=== PATIENT | male | born 1935 | race Caucasian/White ===

== ENCOUNTER → 2016-06-15 | Outpatient (CLI) | payer OTHER ==
[~2016-06-15] MED LIST: DOXY100C76 PO; OXYC-57 PO; SIMV10TA2 PO
[2016-06-15 11:28] LABS: ALT/SGPT 24 U/L (12-78); AST/SGOT 23 U/L (15-37); BLOOD UREA NITROGEN 14 mg/dl (7-18); BUN/CREATININE RATIO 13.8 (10-20); CARBON DIOXIDE 30 mmol/L (21-32); CHLORIDE 104 mmol/L (98-107); CHOLESTEROL 173 mg/dl (0-200); GLUCOSE 93 mg/dl (70-99); POTASSIUM 4.1 mmol/L (3.5-5.1); SODIUM 142 mmol/L (136-145); TRIGLYCERIDES 82 mg/dl (0-150); VERY LOW DENSITY LIPOPROT CALC 16 mg/dl
[2016-06-15 11:32] LABS: CHOLESTEROL/HDL RATIO 3.8; HDL CHOLESTEROL 46 mg/dl; LDL CHOLESTEROL CALCULATED 111 mg/dl
== END | disposition home or self-care (01) ==
LOC: C.LAB1850 10:00
PROVIDERS: ATTEND Internal Medicine
DX: E78.5 Hyperlipidemia, unspecified (principal)

== ENCOUNTER → 2016-12-17 | Outpatient (CLI) | payer OTHER ==
[~2016-12-17] MED LIST changes: -OXYC-57 PO
[2016-12-17 10:27] LABS: ALT/SGPT 22 U/L (12-78); AST/SGOT 18 U/L (15-37); BLOOD UREA NITROGEN 19 mg/dl (7-18); BUN/CREATININE RATIO 20.4 (10-20); CALCIUM 8.7 mg/dl (8.5-10.1); CARBON DIOXIDE 30 mmol/L (21-32); CHLORIDE 106 mmol/L (98-107); CREATININE 0.91 mg/dl (0.60-1.40); GLUCOSE 85 mg/dl (70-99); SODIUM 141 mmol/L (136-145)
[2016-12-17 10:30] LABS: CHOLESTEROL 191 mg/dl (0-200); CHOLESTEROL/HDL RATIO 4.7; HDL CHOLESTEROL 41 mg/dl; LDL CHOLESTEROL CALCULATED 130 mg/dl; TRIGLYCERIDES 100 mg/dl (0-150); VERY LOW DENSITY LIPOPROT CALC 20 mg/dl
== END | disposition home or self-care (01) ==
LOC: C.LAB1850 08:59
PROVIDERS: ATTEND Internal Medicine
DX: E78.5 Hyperlipidemia, unspecified (principal); M85.80 Other specified disorders of bone density and structure, unspecified site

== ENCOUNTER → 2016-12-29 | Outpatient (CLI) | payer OTHER ==
--- NOTE | 2016-12-29 14:24 | MAMMOGRAPHY REPORT ---
MALE BILATERAL DIGITAL DIAGNOSTIC MAMMOGRAM TOMOSYNTHESIS WITH CAD AND TARGETED BILATERAL ULTRASOUND: 12/29/2016 CLINICAL HISTORY: 81-year-old male presents with left breast lump and tenderness. TECHNIQUE: Bilateral breast tomosynthesis in addition to standard 2D mammography was performed. Curre nt study was also evaluated with a Computer Aided Detection (CAD) system. COMPARISON: No prior exams were available for comparison. BREAST COMPOSITION: The breast parenchyma is nearly entirely fat. FINDINGS: A triangle palpable marker was placed on the skin of the 12:00 periareolar left breast, de noting the painful lump pointed out by the patient. There is evidence of glandular tissue in the sub areolar aspect of each breast, compatible with gynecomastia. No evidence of a suspicious mass, focal area of distortion or suspicious macrocalcification. Targeted ultrasound was performed in the retroareolar and periareolar aspect of each breast. There i s a hypoechoic amount of breast tissue development in the retroareolar and periareolar left breast, t o a lesser degree in the right breast. No evidence of a suspicious solid or cystic mass. IMPRESSION: ACR BI-RADS CATEGORY 2: BENIGN, TARGETED ULTRASOUND ACR BI-RADS CATEGORY 2: BENIGN The palpable painful lump in the retroareolar left breast is compatible with gynecomastia. There is gynecomastia to a lesser degree in the right breast. Clinical follow-up is recommended as to possibl e underlying cause. These results and recommendations were discussed with the patient at the time of the exam. Approximately 10% of breast cancers are not detected with mammography. A negative mammographic report should not delay biopsy if a clinically suggestive mass is present. Emelia Anaya M.D. ay/:12/29/2016 12:14:37 Referral And Information Aide: Carolyn Brink, [facility] letter sent: Normal 1/2 BI-RADS Code: ACR BI-RADS Category 2: Benign Ultrasound BI-RADS: ACR BI-RADS Category 2: Benign
== END | disposition home or self-care (01) ==
LOC: C.MAMM 10:07
PROVIDERS: ATTEND Internal Medicine
DX: Q83.9 Congenital malformation of breast, unspecified (principal); N63.20 Unspecified lump in the left breast, unspecified quadrant

== ENCOUNTER → 2017-06-11 | Outpatient (CLI) | payer OTHER ==
[2017-06-11 11:08] LABS: ALT/SGPT 23 U/L (12-78); AST/SGOT 16 U/L (15-37); BLOOD UREA NITROGEN 20 mg/dl (7-18); CALCIUM 9.2 mg/dl (8.5-10.1); CARBON DIOXIDE 29 mmol/L (21-32); CREATININE 0.96 mg/dl (0.60-1.40); GLUCOSE 82 mg/dl (70-99); SODIUM 139 mmol/L (136-145)
[2017-06-11 11:11] LABS: CHOLESTEROL 189 mg/dl (0-200); LDL CHOLESTEROL CALCULATED 127 mg/dl
== END | disposition home or self-care (01) ==
LOC: C.LAB1850 08:55
PROVIDERS: ATTEND Internal Medicine
DX: E78.5 Hyperlipidemia, unspecified (principal); I65.29 Occlusion and stenosis of unspecified carotid artery

== ENCOUNTER 2023-01-27 10:39 | Observation (INO) ==
[~2023-01-27 10:39] MED LIST changes: +CEFAZOLIN 2,000 MG/15 ML SYR IV SCH; -DOXY100C76 PO; -SIMV10TA2 PO; +SODIUM CHLORIDE 0.9% 1,000 ML IV SCH; +[UNRECOGNIZED DRUG - REMARK] SCH
--- NOTE | 2023-01-27 11:07 | History & Physical Report ---
Date of Service January 27, 2023 History of Present Illness Primary Care Provider: Akil Ordoñez MD Chief Complaint rm#5 here for f/u from [facility], admitted for leg paralysis, incidental finding of popliteal aneurysm Reason for Consultation Popliteal artery aneurysm History of Present Illness This is an 87-year-old gentleman who is being worked up for weakness in his legs. 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 He denies any claudication. He has no complaints of cerebrovascular insufficiency. He denies any ulcerations of the lower extremities or color changes. He does not smoke. He does have a history of psoriasis. Review of Systems Review of systems performed and 10 systems. Positive findings are occasional shortness of breath constipation. Rest of the findings that are positive as per the [facility] Physical Exam Vitals & Measurements HR: 111 (Monitored) BP: 134/60 SpO2: 92% WT: 61.100 kg (Dosing) WT: 61.1 kg Input and Output - Last 24 hours (Last 8 hours) No I/O Data Found: On exam he is awake alert oriented x3. He is in no apparent distress. His blood pressure is 126/56 on the left and 134/60 on the right. His radials and carotids are +2 bilaterally. I cannot appreciate carotid bruits. Lungs are clear heart irregular rate and rhythm abdominal exam is benign I cannot appreciate a pulsatile mass. Femorals are +2 bilaterally. Pedal's are +1 belinda aterally. I cannot appreciate a widened pulse on the right however the left popliteal did feel to be widened. No ulcerations are noted in either lower extremity. Assessment/Plan Popliteal artery aneurysm At this point we will obtain a CT angio of the lower extremities to better evaluate the popliteal artery. The MRI showed a to be present but the films start just at the distal end of the aneurysm. We need better evaluation of the distal runoff before the type of repair could be determined. We will see him again after his CT angio is completed. Thank you very much for letting us participate in the care of this patient. 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 Dysplastic nevus H/O Malignant melanoma History of basal cell carcinoma of skin Hyperlipidemia Melanocytic nevus Melanoma Multiple nevi Neck stiffness Popliteal artery aneurysm Senile hyperkeratosis Verruca vulgaris Procedure/Surgical History Excision (03/04/2022) Shave biopsy (01/21/2022) Punch biopsy (01/03/2019) Shave biopsy and cauterisation of skin (12/07/2018) Shave biopsy and cauterization of skin (10/13/2018) Shave biopsy and cauterization of skin (01/10/2014) Shave biopsy (07/17/2013) excision (06/29/2012) Shave biopsy of skin (06/06/2012) Cataract Medications Home albuterol(Albuterol (Eqv-ProAir HFA) 90 mcg/inh inhalation aerosol) doxycycline(doxycycline hyclate 100 mg oral capsule), 100 mg= 1 cap, PO, ONCE, 1 refills dutasteride(dutasteride 0.5 mg oral capsule) pravastatin(pravastatin 10 mg oral tablet) predniSONE(predniSONE 20 mg oral tablet) tamSULOsin(tamsulosin 0.4 mg oral capsule) Allergies Pollen watery eyes Social History Smoking Status Never smoked cigarettes Signature Line Electronic Signature on File Romeo Marte MD Author Signature Dt/Tm: 12/30/2022 09:19 AM Card Room Manager Hilario Gupta [facility] [address], [address] [place], [place] [address] Result Type: .Outpt Ltr Date of Service: December 30, 2022 09:15 EDT Authorization Status: Final Subject: Consult Note Author or Import Date: MD Marte Eugene J on December 30, 2022 09:19 EDT Verified By: MD Marte Eugene J on December 30, 2022 09:19 EDT Encounter info: [id number], [place] [id number], Clinic, 12/30/2022 - 12/30/2022 Allergies Allergy/AdvReac Type Severity Reaction Status Date / Time pollen extracts Allergy Mild Congestion Verified 12/30/22 14:36 No Known Drug Allergies Allergy . Verified 12/30/22 14:36 Home Medications Medication Instructions Recorded Confirmed Type acetaminophen 325 mg capsule 650 mg PO Q4H PRN 12/17/22 12/30/22 History albuterol sulfate 90 mcg/actuation 2 inh inhalation Q6H PRN 12/17/22 12/30/22 History breath activated powder inhaler docusate sodium 100 mg capsule 100 mg PO DAILY PRN 12/17/22 12/30/22 History (Colace) doxycycline hyclate 100 mg capsule 100 mg PO DAILY 12/17/22 12/30/22 History multivitamin 1 tab PO DAILY 12/17/22 12/30/22 History polyethylene glycol 3350 17 17 g PO DAILY 12/17/22 12/30/22 History gram/dose oral powder (Miralax) tuberculin PPD 5 tub. 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 Rosacea Osteopenia Hyperlipidemia Carotid artery plaque Venous insufficiency (chronic) (peripheral) Nipple anomaly Memory changes Malignant melanoma of skin Left inguinal hernia Impacted cerumen Encounter for screening for malignant neoplasm of prostate Bilateral inguinal hernia Bilateral impacted cerumen Carotid artery plaque Sensorineural hearing loss (SNHL) of both ears Melanoma Hx of melanoma of skin LEG Surgical History (Updated 01/14/23 @ 00:12 by Background Daemon) Hx of biopsy (12/10/22) Left Thigh Muscle Biopsy and Culture(Left) - Young Villalta, DO, FACS History of cataract extraction with lens replacement RIGHT Was given 2mg of versed without apparent complications Hx of hernia repair History of colostomy Family History Mother Colorectal cancer Denies family history of Ovarian cancer Prostate cancer Myocardial infarction Breast cancer Lung cancer Stroke Social History Smoking Status: Former smoker Tobacco Type: Pipe Cigarettes Per Day: HX OF PIPE USE, QUIT IN 2000; Second Hand Exposure: No; Do You Dip or Chew Tobacco: No; Hx Alcohol Use: No Hx Substance Use: No Preferred Language: Cameroonian Communication Ability: Effective Visual Impairment: No Limitations Hearing Ability: Normal Emergency Medicine Required: No Beliefs That Will Affect Care: None marital status: Current Living Situation: Spouse Current Living Situation Comment: lives in split level home with elderly current occupational status: retired Feels Safe at Home: Yes Childhood Exposure to Second-Hand Smoke: No Dental Care, Regularly: Yes Physical Activity Frequency: Does not Exercise Seatbelt Use: always Sunscreen Use: No Assistive Devices: Walker
--- NOTE | 2023-01-27 11:37 | History & Physical Bridge Note ---
Date of Service January 27, 2023 History & Physical Bridge Note I have examined the patient, reviewed the History & Physical and in the interval since the performance of the History & Physical I have noted the following changes of clinical significance: no changes noted
[2023-01-27] MEDS ORDERED: HEPARIN SOD (PORCINE) 1000 UNIT/ML ONE (12:13)
[2023-01-27] MEDS ORDERED: fentaNYL citrate PF 100 MCG/2 ML VIAL ONE (12:13)
[2023-01-27] MEDS ORDERED: MIDAZOLAM HCL 1 MG/ML 2ML VIAL ONE (12:13)
[2023-01-27] MEDS ORDERED: LIDOCAINE 1% LOCAL 20 ML VIAL ONE (12:25)
--- NOTE | 2023-01-27 12:29 | Pre Anesthesia Assessment ---
Date of Service January 27, 2023 Pre Sedation Assessment Vital Signs Temp Pulse Resp BP Pulse Ox O2 Del Method 01/27/23 11:11 36.5 C 101 H 20 137/85 95 Room Air Cardiovascular RRR, no murmur, no edema Respiratory normal respiratory effort, lungs clear to auscultation Pre-Sedation Airway Assessment Smoking Status: Former smoker Hx Sleep Apnea: No Short, Thick Neck: No Thyromental Distance: > or= 3.5 Finger Breadths Oral Cavity: + WNL Mallampati Class: III ASA: ASA3 NPO Status Date of Last Intake of Fluids: 01/26/23 Time of Last Intake of Fluids: 22:00 Date of Last Intake of Solid Food: 01/26/23 Time of Last Intake of Solid Foods: 18:00 Procedure Planning Contraindications for Sedation: none Current Medications Reviewed: Yes Notes The planned sedation has been discussed with the patient. Informed Consent was obtained. I have identified the patient, determined the appropriateness of sedation and have assessed the patient immediately prior to the procedure. All medicine(s) and interventions are by my order.
[2023-01-27] MEDS ORDERED: oxyCODONE/ACETAMINOPHEN 5mg/325mg TAB PO PRN (13:03)
[2023-01-27] MEDS ORDERED: DOCUSATE SODIUM 100 MG CAP PO PRN (13:06)
--- NOTE | 2023-01-27 13:14 | Procedure Note ---
Angiogram Post Procedure Fluoroscopy Time (minutes): 2.4 Conscious Sedation Time (minutes): 35 Radiation (mGy): 11 Contrast: 25 Post Operative Report Pre & Post Diagnosis Operation Date: 01/27/23 12:15 Pre-Op Diagnosis: Right Popliteal Artery Aneurysm Post-Op Diagnosis: Right Popliteal Artery Aneurysm I identified the patient and participated in the time-out.: Yes Procedure Operation Date: 01/27/23 12:15 Actual Procedures p Endovascular Repair of Right Popliteal Artery Aneurysm, Ultrasound Loclalization of Left Femoral Artery, Moderate Sedation [id number](Right) - Romeo Marte MD Surgeon Romeo Marte MD Delivery Director none Estimated Blood Loss 5 Findings Consistent with Post-Op Diagnosis Specimens none Anesthesia Type RN Sedation Complications none Disposition Accompanied Patient To Recovery: No Disposition: Recovery Room Indications This patient is an 87-year-old male who was found to have a large right popliteal artery aneurysm. He is a good candidate for an endovascular repair. Endovascular pair is recommended. I have discussed the risks options and benefits of the procedure with the patient. The patient understands the risks options and benefits and agrees to the procedure. Description of Procedure The patient was taken the operating placed supine position. Both groins were prepped and draped in a sterile manner. Patient was identified and a timeout was performed. Using ultrasound the left common femoral artery was identified. It was a good caliber and was patent with minimal plaque. Using ultrasound guidance the left common femoral artery was punctured. A 5 Frisian sheath was inserted over the wire. Using a an 035 Glidewire and a rim catheter the right iliac was cannulated from the left side. The wire was passed down through the popliteal aneurysm down into the tibial vessels. The rim cath was advanced down to the distal superficial femoral artery. The wire was removed and arteriography was performed. The aneurysm was identified. The caliber of the artery above and below approximately 9 to 10 mm. A stiff and Glidewire was then inserted through the rim catheter advanced again down through the popliteal. The rim catheter was removed. The 5 Frisian sheath was exchanged for an 8 Frisian destination. We then used the 10 x 15 Viabahn stent to cover the popliteal artery aneurysm. This was then postdilated with a 10 x 6 balloon. Completion angio showed the stent to be widely patent. There is no evidence of endoleak's into the sac. Good outflow was noted in all 3 vessels. At that point the sheath was removed and the puncture was closed using a Star closure device. Adequate hemostasis was noted. Sterile dressings were applied to the puncture site.The patient left the operation room in satisfactory condition and tolerated the procedure well. All needle and sponge counts were correct at the end of the procedure. I attest to the content of the Intraoperative Record and any orders documented therein. Any exceptions are noted below.
[2023-01-27] MEDS ORDERED: SODIUM CHLORIDE 0.9% 1,000 ML IV SCH (13:15)
--- NOTE | 2023-01-27 13:15 | Post Anesthesia Assessment ---
Date of Service January 27, 2023 Post Sedation Assessment Vital Signs Temp Pulse Pulse Resp BP Pulse Ox O2 Del Method 01/27/23 13:13 80 18 125/65 96 Room Air 01/27/23 13:08 80 18 124/68 98 Oxymask 01/27/23 13:05 80 18 129/62 98 Oxymask 01/27/23 13:00 80 18 115/67 98 Oxymask 01/27/23 12:55 80 18 114/58 L 98 Oxymask 01/27/23 12:50 80 18 118/52 L 98 Oxymask 01/27/23 12:45 78 18 120/61 98 Oxymask 01/27/23 12:40 78 18 137/65 98 Oxymask 01/27/23 12:35 76 18 138/68 98 Oxymask 01/27/23 12:30 78 18 140/69 98 Oxymask 01/27/23 12:25 78 18 139/69 98 Oxymask 01/27/23 11:11 36.5 C 101 H 20 137/85 95 Room Air O2 Flow Rate 01/27/23 13:13 4 01/27/23 13:08 4 01/27/23 13:05 4 01/27/23 13:00 4 01/27/23 12:55 4 01/27/23 12:50 4 01/27/23 12:45 4 01/27/23 12:40 4 01/27/23 12:35 4 01/27/23 12:30 4 01/27/23 12:25 4 01/27/23 11:11 Recovery Score Activity: Moves 4 extremities Respiration: Deep Breath/Cough Circulation: +/-20% PreAnes Value Consciousness: Arouseable (by name) Oxygen Saturation: > 92% On Room Air Post Anesthesia Score: 9 Discharge Sedation Level of Care: Fast Track Phase II Post Sedation Plan On clinical assessment, the patient appears to have tolerated the sedation without complications. Patient is recovering as anticipated. Patient will continue to be monitored by nursing and may be discharged when sedation discharge criteria are met per below protocol. Upon Completions of procedure up to 15 minutes continue every 5 minute vital signs and the P.A.R. score; then discharge to a Phase I or Fast Track to Phase II per the following guidelines: * Discharge Patient to appropriate Phase II area if PAR is 8 or greater or return to pre- procedure baseline. The post - procedure orders will be as directed. * If PAR score is less than 8 or not return to pre-procedure baseline then patient will follow Phase I monitoring till PAR is reached for Phase II. The Phase I may be done in procedure room or may call to secure a Phase I area. * If naloxone or flumazenil are used for reversal, hold in Phase I for con tinued monitoring from when last reversal dose was given for a minimum of 60 minutes or longer pending the nurse and/or physician discretion of patient condition before discharge to Phase II. Please call the Sedation Physician to re-evaluate and complete post-note for discharge to Phase II area. Do NOT discharge from procedure sedation or Phase 1 until post- sedation evaluation note is complete by procedure /sedation MD Sedation Discharge Instructions to be given to the patient at discharge to home.
[2023-01-27] MEDS ORDERED: CLOPIDOGREL BISULFATE 300 MG TAB PO STA (13:28)
[2023-01-27] MEDS ORDERED: ALBUTEROL HFA 8 GM INHALER INH PRN (14:14)
[2023-01-27] MEDS ORDERED: ACETAMINOPHEN 325 MG TAB PO PRN (14:16)
[2023-01-28] MEDS ORDERED: predniSONE 5 MG TAB PO SCH (09:00)
[2023-01-28] MEDS ORDERED: POLYETHYLENE (MIRALAX) 17 GM PACK PO SCH (09:00)
[2023-01-28] MEDS ORDERED: MULTIVITAMIN TAB PO SCH (09:00)
[2023-01-28] MEDS ORDERED: DOXYCYCLINE HYCLATE 100 MG CAP PO SCH (09:00)
[2023-01-28] MEDS ORDERED: FINASTERIDE 5 MG TAB PO SCH (09:00)
[2023-01-28] MEDS ORDERED: TAMSULOSIN HCL 0.4 MG CAP PO SCH (09:00)
[2023-01-28] MEDS ORDERED: CLOPIDOGREL BISULFATE 75 MG TAB PO SCH (09:00)
--- NOTE | 2023-01-28 15:00 | Surgery Progress Note ---
Date of Service January 28, 2023 Assessment & Plan (1) Popliteal artery aneurysm: Plan: Patient underwent the percutaneous endovascular repair of his right popliteal artery aneurysm. This is postoperative day #1.He is doing extremely well. He has no complications from the procedure. He will be discharged home today. Admission and Anticipated Discharge Date Admission Date: January 27, 2023 Subjective Plan patient with no complaints.He denies any foot pain leg pain or groin pain Physical Exam Constitutional: WD/WN, vitals as above Cardiovascular: Rate/Rhythm: regular rate and regular rhythm Vessels: posterior tibial pulses present and dorsalis pedis pulses present Extremities: normal capillary refill Skin: + incision (Puncture site is dry and kenji an without any hematoma) Neurologic: CN's II-XI intact bilaterally and moves all extremities Psychiatric: Orientation: alert and oriented x 3 Results & Data Vital Signs (Past 12 Hours) Vital Signs Temp Pulse Resp BP Pulse Ox O2 Del Method 01/28/23 08:00 36.2 C L 78 16 133/68 94 Room Air 01/28/23 04:49 36.5 C 79 18 128/69 95 Room Air
--- NOTE | 2023-01-29 08:26 | Discharge Summary ---
Date of Service January 29, 2023 Admission HPI Per Admitting Provider Chief Complaint rm#5 here for f/u from [facility], admitted for leg paralysis, incidental finding of popliteal aneurysm Reason for Consultation Popliteal artery aneurysm History of Present Illness This is an 87-year-old gentleman who is being worked up for weakness in his legs. 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 He denies any claudication. He has no complaints of cerebrovascular insufficiency. He denies any ulcerations of the lower extremities or color changes. He does not smoke. He does have a history of psoriasis. Review of Systems Review of systems performed and 10 systems. Positive findings are occasional shortness of breath constipation. Rest of the findings that are positive as per the HPI Physical Exam Vitals & Measurements HR: 111 (Monitored) BP: 134/60 SpO2: 92% WT: 61.100 kg (Dosing) WT: 61.1 kg Input and Output - Last 24 hours (Last 8 hours) No I/O Data Found: On exam he is awake alert oriented x3. He is in no apparent distress. His blood pressure is 126/56 on the left and 134/60 on the right. His radials and carotids are +2 bilaterally. I cannot appreciate carotid bruits. Lungs are clear heart irregular rate and rhythm abdominal exam is benign I cannot appreciate a pulsatile mass. Femorals are +2 bilaterally. Pedal's are +1 bilaterally. I cannot appreciate a widened pulse on the right however the left popliteal did feel to be widened. No ulcerations are noted in either lower extremity. Assessment/Plan Popliteal artery aneurysm At this point we will obtain a CT angio of the lower extremities to better evaluate the popliteal artery. The MRI showed a to be present but the films start just at the distal end of the aneurysm. We need better evaluation of the distal runoff before the type of repair could be determined. We will see him again after his CT angio is completed. Thank you very much for letting us participate in the care of this patient. 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 Dysplastic nevus H/O Malignant melanoma History of basal cell carcinoma of skin Hyperlipidemia Melanocytic nevus Melanoma Multiple nevi Neck stiffness Popliteal artery aneurysm Senile hyperkeratosis Verruca vulgaris Procedure/Surgical History Excision (03/04/2022) Shave biopsy (01/21/2022) Punch biopsy (01/03/2019) Shave biopsy and cauterisation of skin (12/07/2018) Shave biopsy and cauterization of skin (10/13/2018) Shave biopsy and cauterization of skin (01/10/2014) Shave biopsy (07/17/2013) excision (06/29/2012) Shave biopsy of skin (06/06/2012) Cataract Medications Home albuterol(Albuterol (Eqv-ProAir HFA) 90 mcg/inh inhalation aerosol) doxycycline(doxycycline hyclate 100 mg oral capsule), 100 mg= 1 cap, PO, ONCE, 1 refills dutasteride(dutasteride 0.5 mg oral capsule) pravastatin(pravastatin 10 mg oral tablet) predniSONE(predniSONE 20 mg oral tablet) tamSULOsin(tamsulosin 0.4 mg oral capsule) Allergies Pollen watery eyes Social History Smoking Status Never smoked cigarettes Signature Line Electronic Signature on File Romeo Marte MD Author Signature Dt/Tm: 12/30/2022 09:19 AM Gravity Prospector Hilario Gupta [facility] [place], [address] [place], [place] [address] Result Type: .Outpt Ltr Date of Service: December 30, 2022 09:15 EDT Authorization Status: Final Subject: Consult Note Author or Import Date: MD Marte Eugene J on December 30, 2022 09:19 EDT Verified By: MD Marte Eugene J on December 30, 2022 09:19 EDT Encounter info: [id number], [place] [id number], Clinic, 12/30/2022 - 12/30/2022 Admission Exam Per Admitting Provider On exam he is awake alert oriented x3. He is in no apparent distress. His blood pressure is 126/56 on the left and 134/60 on the right. His radials and carotids are +2 bilaterally. I cannot appreciate carotid bruits. Lungs are clear heart irregular rate and rhythm abdominal exam is benign I cannot appreciate a pulsatile mass. Femorals are +2 bilaterally. Pedal's are +1 bilaterally. I cannot appreciate a widened pulse on the right however the left popliteal did feel to be widened. No ulcerations are noted in either lower extremity. Principal Diagnosis 1. s/p endovascular repair of R popliteal artery aneurysm 2. R popliteal artery aneurysm Discharge Exam Constitutional WD/WN, vitals as above Respiratory normal respiratory effort, lungs clear to auscultation Cardiovascular RRR, no murmur, no edema Rate/Rhythm: regular rate and regular rhythm Vessels: posterior tibial pulses present and dorsalis pedis pulses present Extremities: normal capillary refill Skin + incision (Puncture site is dry and clean without any hematoma) Neurologic CN's II-XI intact bilaterally and moves all extremities Psychiatric Orientation: alert and oriented x 3 Discharge Data Allergies Allergy/AdvReac Type Severity Reaction Status Date / Time pollen extracts Allergy Mild Congestion Verified 01/27/23 11:20 No Known Drug Allergies Allergy . Verified 01/27/23 11:20 Procedures Performed Operation Date: 01/27/23 12:15 Actual Procedures p Endovascular Repair of Right Popliteal Artery Aneurysm, Ultrasound Loclalization of Left Femoral Artery, Mechanical Closure of Left Femoral Artery, Moderate Sedation [id number](Right) - Romeo Marte MD Ordered Studies 01/27/23 12:09 EV angio LE RT Routine US EV guide vascular access Routine Hospital Course (1) Popliteal artery aneurysm: Patient underwent the percutaneous endovascular repair of his right popliteal artery aneurysm. This is postoperative day #1.He is doing extremely well. He has no complications from the procedure. He will be discharged home today. Total Time Total Time Spent Total Time Spent (In Minutes): 0 Discharge Plan Discharge Items Patient Disposition: Home - Self-Care Reason For Visit: RIGHT POPLITEAL ARTERY ANEURYSM Discharge Diagnosis: Right popliteal artery aneurysm Activity: Per Instructions section Non-emergency contact: Surgeon Call non-emergency contact if: your temperature is above 101.5, your wound has increased redness, your wound has increased drainage and your wound pain has increased Follow-up/Referrals: Pro,Akil Tim MD [Primary Care Provider] - Diet: Heart Healthy Addtl Attending Provider Instructions: SPECIAL CARE INSTRUCTIONS: Medications: * Continue to take your medications as directed. If you have been given a prescription for Plavix, please fill it immediately and take as directed. Incision Care: * Your puncture site may have some bruising and minor swelling for about one week. * You will have a small dressing covering your puncture site. You may remove the dressing after 24 hours and shower. You may let the warm soapy water run over it, but be sure to dry the puncture site well and keep it dry. * DO NOT IMMERSE THE INCISION IN A TUB/POOL/etc. UNTIL HEALED. * Puncture sites should be kept covered with a band-aid until it begins to heal. Restrictions: * Depending on whether you leg or arm was punctured to access the arteries, you will be required to lay flat, hold your arm still, or both, for about 4 hours after the procedure to prevent bleeding. * Limit your activity for the first 48 hours. You may walk and go up and down steps. Avoid excessive bending or movement at the puncture site. Possible Complications: * Excessive Swelling - after blood flow is improved you may notice increased swelling in the lower legs. This is a normal response. This usually depends on the amount of blockages in the leg, how long they have been there prior to your procedure and how much blood flow was restored. Elevating your legs will help to improve this. Please notify our office ([phone]) if the swelling does not go away after lying in bed overnight. * Infection/Drainage/Bleeding - Drainage or bleeding from the puncture site should be minimal. If you have excessive bleeding or drainage, call our office ([phone]) right away. * Pain - You may experience some mild pain or soreness at your puncture site. If your pain does not improve, please contact our office ([phone]). Call your doctor and seek emergent treatment if you develop: * Temperature above 101 degrees * Any fever or chills * Any redness or purulent drainage from the puncture site * Any new dusky/blue colored toes or feet with coolness or sharp or aching pain. SKIN IRRITATION: * You may experience some redness and/or swelling in the area where radiation was administered. If any skin irritation occurs, please contact your family physician. FOLLOW UP VISIT: Keep any scheduled doctor appointments. Call [phone] to schedule a follow up appointment if one not already scheduled. Pending Studies at Discharge: No Stand-Alone Forms: My [employer], Smoking Cessation Medications and DC Order Prescriptions: New clopidogrel [Plavix] 75 mg tablet 75 mg PO DAILY Qty: 30 11RF Continued prednisone 5 mg tablet 5 mg PO .COMPLEX Qty: 60 0RF Rx Instructions: 3 tablets p.o. daily as directed dutasteride [Avodart] 0.5 mg capsule 0.5 mg PO DAILY Qty: 60 2RF tamsulosin [Flomax] 0.4 mg capsule 0.4 mg PO DAILY Qty: 60 2RF acetaminophen 325 mg capsule 650 mg PO Q4H PRN (Reason: Breakthrough Pain) albuterol sulfate 90 mcg/actuation aerosol powdr breath activated 2 inh inhalation Q6H PRN (Reason: sob) docusate sodium [Colace] 100 mg capsule 100 mg PO DAILY PRN (Reason: constipation) doxycycline hyclate 100 mg capsule 100 mg PO DAILY Rx Instructions: Daviers Disease polyethylene glycol 3350 [Miralax] 17 gram/dose powder 17 g PO DAILY Rx Instructions: give by mouth every 24hrs as needed for constipation give in 8oz f water/juice on 3rd day no BM multivitamin Tablet 1 tab PO DAILY Tubersol 5 tub. unit /0.1 mL solution intradermal Discharge Orders: Discharge Order (Routine); Ordered 01/28/23 Ordered By: Romeo Marte Admission Data Admit Date/Time: 01/27/23 13:04 Attending Provider: Romeo Marte Admit Provider: Romeo Marte Primary Care Provider: Akil Ordoñez Other Interventions: Discharge Summary Assessment (RN) Last Done: 01/28/23 14:58
--- OUTSIDE RECORDS SUMMARY | 2023-01-31 15:44 | External Medical Summary | Continuity of Care Document ---
Author Name Unknown Organization [facility] [address] Address [address] [place], [place] [id number] Care Team Providers Care [employer] Name Role Phone Akil Ordoñez Primary Care Physician [phone] [facility]counter [id number] Date(s): 01/19/23 - 01/19/23 [facility] [address], [address] [place] [address] [phone] Encounter Diagnosis Popliteal artery aneurysm(Discharge Diagnosis) - 01/19/23 Discharge Disposition: Home or Self Care Attending Physician: MD Estuardo, Romeo Melgoza Referring Physician: MD Ordoñez Jeffrey W Allergies, Adverse Reactions, Alerts Substance Reaction Severity Status Pollen watery eyes Active Medications Albuterol (Eqv-ProAir HFA) 90 mcg/inh inhalation aerosol INHALE 2 PUFFS BY MOUTH EVERY 6 HOURS NEEDED FOR SHORTNESS OF BREATH OR WHEEZING Start Date: 12/30/22 Status: Ordered doxycycline hyclate 100 mg oral capsule Start: 09/04/21 10:19:00 EDT, 1 cap, PO, ONCE, Disp# 30 cap, Refills: 1, M-W-F, Pharmacy: [facility] Start Date: 09/04/21 Status: Ordered dutasteride 0.5 mg oral capsule TAKE 1 CAPSULE BY MOUTH IN THE MORNING Start Date: 12/30/22 Status: Ordered pravastatin 10 mg oral tablet TAKE 1 TABLET BY MOUTH ONCE DAILY Start Date: 03/04/22 Status: Ordered predniSONE 5 mg oral tablet Start: 01/19/23 13:12:00 EDT, 3 tab, PO, Daily Start Date: 01/19/23 Status: Ordered tamsulosin 0.4 mg oral capsule TAKE 1 CAPSULE BY MOUTH AT BEDTIME Start Date: 12/30/22 Status: Ordered Mental Status 01/19/23 Barriers to Learning one year None evide nt Mandatory Health Literacy Documentation Yes Health Literacy Communication Barriers N ever Primary Language Welsh Problem List Condition Confirmation Course Effective Dates Status H ealth Status Informant Popliteal artery aneurysm Confirmed Active Multiple nevi Confirmed Active Changing skin lesion Confirmed Active Darier's disease Confirmed Active Dysplastic nevus Confirmed Active 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 H/O Malignant melanoma Confirmed Active Angioma Confirmed Active History of basal cell carcinoma of skin Confirmed Active Hyperlipidemia Confirmed Active Melanocytic nevus Confirmed Active Melanoma Confirmed Active Neck stiffness Confirmed Active Senile hyperkeratosis Confirmed Active Verruca vulgaris Confirmed Active Diagnosis Diagnosis Type Effective Dates Health Status Cl inical Service Informant Popliteal artery aneurysm Discharge Diagnosis 01/19/23 Non-Specified Procedures Procedure Date Related Diagnosis Body Site Status Excision 03/04/22 Completed Shave biopsy 1 01/21/22 Completed Punch biopsy 2 01/03/19 Completed Shave biopsy and cauterisation of skin 12/07/18 Completed Shave biopsy and cauterizati on of skin 3 10/13/18 Completed Shave biopsy and cauterizati on of skin 4 01/10/14 Completed Shave biopsy 07/17/13 Completed excision 06/29/12 Completed Shave biopsy of skin 06/06/12 Comp leted Cataract Completed 1left prox jawline 2left lower leg 3with ED&C 4left achilles Vital Signs Most recent to oldest [Reference Range]: 1 Heart Rate 87 bpm (01/19/23 1:13 PM) Blood Pressure 134/56mmHg (01/19/23 1:13 PM) Social History Social History Type Response Smoking Status Never smoked cigaret minerva Sex Male Patient Care team information Care Team Personnel Name: BRANDI Pa Lynn 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 [address] [facility] [address] [place] [id number] [place] Care Team Related Persons Name: ASHLIE DAVIS Address: home [address] [place], [place] [id number]
== END 2023-01-28 15:31 | disposition home or self-care (01) ==
LOC: 3E 10:39 → ASU 10:39

== ENCOUNTER 2023-04-29 15:24 | Inpatient (IN) ==
--- NOTE | 2023-04-29 15:41 | ED Triage Note ---
Date of Service April 29, 2023 Provider in Triage Author: Arline Fowler History of Present Illness This patient was briefly evaluated while in triage. An abbreviated physical exam was performed. This patient is a 88-year-old Male who presents to the ED for evaluation abdominal and back pain, no bowel movement x several days chronic hematuria, chronic SOB from COPD Physical Exam GENERAL: Elderly male in WC with family. CARDIOVASCULAR: RRR RESPIRATORY: CTA ABDOMEN: BS x 4. Diffusely TTP Initial orders for labs and / or imaging were placed and patient was placed in the waiting area until a bed is available. Please see further documentation for the full ED course.
[2023-04-29 16:30] LABS: Basophils # (auto) 0.01 K/uL (0.00-0.20); Basophils % (auto) 0.1 %; Eosinophils # (auto) 0.01 K/uL (0.00-0.50); Eosinophils % (auto) 0.1 %; Hematocrit (blood only) 37.2 % (42.0-52.0); Hemoglobin 12.5 g/dl (14.0-18.0); Immature Granulocytes # (auto) 0.05 K/uL (0.01-0.20); Immature Granulocytes % (auto) 0.5 %; Lymphocytes # (auto) 0.63 K/uL (1.20-3.40); Lymphocytes % (auto) 5.9 %; Mean Corpuscular Hemoglobin 30.3 pg (25.0-34.0); Mean Corpuscular Hgb Conc 33.6 g/dL (32.0-36.0); Mean Corpuscular Volume 90.3 fL (80.0-100.0); Mean Platelet Volume 9.4 fL (9.4-12.4); Monocytes # (auto) 0.43 K/uL (0.11-0.59); Neutrophils # (auto) 9.53 K/uL (1.40-6.50); Neutrophils % (auto) 89.4 %; Platelet Count 261 K/uL (130-400); RDW Coefficient of Variation 15.2 % (11.5-14.5); RDW Standard Deviation 50.6 fL (36.4-46.3); Red Blood Count 4.12 M/uL (4.70-6.10); White Blood Count 10.66 K/ul (4.8-10.8)
[2023-04-29 16:48] LABS: Alanine Aminotransferase 14 U/L (7-52); Albumin Globulin Ratio 1.4 (0.9-2); Albumin Level 3.6 gm/dl (3.4-5.0); Alkaline Phosphatase 59 U/L (34-104); Anion Gap 10 (3-11); Aspartate Aminotransferase 15 U/L (13-39); BUN Creatinine Ratio 22.5 (10-20); Bilirubin,Total 0.6 mg/dl (0.2-1.0); Blood Urea Nitrogen 63 mg/dl (6-23); Carbon Dioxide 25 mmol/L (21-32); Chloride 106 mmol/L (98-107); Est GFR (African American) 22.5 ml/min; Est GFR (Non-African American) 19.4 ml/min; Globulin 2.6 gm/dl (2.5-4.0); Glucose 131 mg/dl (70-99(Fasting)); Lipase 16 U/L (11-82); Potassium 3.7 mmol/L (3.5-5.1); Sodium 141 mmol/L (136-145); Total Protein 6.2 gm/dl (6.0-8.3)
--- NOTE | 2023-04-29 16:53 | XRay Report ---
PA CHEST RADIOGRAPH AND UPRIGHT AND SUPINE AP RADIOGRAPHS OF THE ABDOMEN CLINICAL HISTORY: abd/back pain, constipation, SOB COMPARISON STUDY: Chest CT December 12, 2022. Chest radiograph March 18, 2023. MRI of the abdome n January 20, 2023. CT of the abdomen and pelvis December 07, 2022. FINDINGS: Lungs are clear. No pneumothorax or pleural effusion. Cardiac size is normal. Mediastinal contours are normal. No evidence for pulmonary edema. There is no evidence for free air. Gas througho ut small and large bowel is present. There is no evidence for a bowel obstruction. There is a moderat e to large amount of stool within the colon and rectum. IMPRESSION: 1. No free air or evidence for a bowel obstruction. 2. Moderate to large amount of stool within the colon and rectum. 3. No acute cardiopulmonary findings. ACT 112: Negative or not required by law. Electronically signed by: Tony Bryan M.D. 04/29/2023 4:52 PM
[2023-04-29 16:54] LABS: Troponin I High Sensitivity 13.7 pg/ml (0-20)
[2023-04-29 16:59] LABS: INR 1.1 (0.9-1.1); Prothrombin Time 12.3 Seconds (9.0-12.0)
[2023-04-29 22:58] LABS: Appearance Urine Turbid (Clear); Bilirubin Urine 1+ (Negative); Blood Urine 3+ (Negative); Color Urine Brown; Glucose Urine UA Negative (Negative); Ketones Urine Negative (Negative); Leukocyte Esterase Urine Trace (Negative); Nitrite Urine Positive (Negative); Protein Urine 3+ (Negative); Urobilinogen Urine Negative (Negative); pH Urine 5.5 (4.5-7.5)
[2023-04-29 23:05] LABS: RBC Urine >30 /hpf (0-4)
[2023-04-29 23:06] LABS: Bacteria Urine 3+ (Negative)
[2023-04-29] MEDS: SODIUM CHLORIDE 0.9% 1,000 ML IV SCH (23:30)
[2023-04-29] MEDS: cefTRIAXone SODIUM 2,000 MG/50 ML BAG IV STA (23:30)
[2023-04-29] MEDS: LIDOCAINE 2% JELLY 5 ML TUBE EXT ONE (23:30)
--- NOTE | 2023-04-30 00:07 | Emergency Department Note ---
History of Present Illness General Chief complaint: Abdominal Pain Stated complaint: ABD PAIN, REF BY DOC Time Seen by Provider: 04/29/23 20:02 Source: family (Family at bedside) History of Present Illness Provider complaint: Abdominal pain hematuria Onset (ago): month(s) 1 Maximum Pain Intensity: 6 88-year-old male with history of dementia presents emergency department with his family for abdominal pain and hematuria. Family reports that the patient was complain complain about abdominal pain and hematuria for the last month. They state they called her doctor today who told him to come to the emergency department. Home Medications Medication Instructions Recorded Confirmed Type acetaminophen 325 mg capsule 650 mg PO Q4H PRN Breakthrough Pain 12/17/22 04/29/23 History albuterol sulfate 90 mcg/actuation 2 inh inhalation Q6H PRN sob 12/17/22 04/29/23 History breath activated powder inhaler docusate sodium 100 mg capsule 100 mg PO DAILY PRN constipation 12/17/22 04/29/23 History (Colace) doxycycline hyclate 100 mg capsule 100 mg PO BID 12/17/22 04/29/23 History multivitamin 1 tab PO DAILY 12/17/22 04/29/23 History polyethylene glycol 3350 17 17 g PO DAILY 12/17/22 04/29/23 History gram/dose oral powder (Miralax) dutasteride 0.5 mg capsule 0.5 mg PO DAILY #60 caps 01/14/23 04/29/23 Rx (Avodart) tamsulosin 0.4 mg capsule (Flomax) 0.4 mg PO DAILY #60 caps 01/14/23 04/29/23 Rx clopidogrel 75 mg tablet (Plavix) 75 mg PO DAILY #30 tabs 01/28/23 04/29/23 Rx prednisone 20 mg tablet 10 mg PO DAILY 04/29/23 04/29/23 History prednisone 5 mg tablet 5 mg PO DAILY 04/29/23 04/29/23 History Allergies Allergy/AdvReac Type Severity Reaction Status Date / Time pollen extracts Allergy Mild Congestion Verified 04/29/23 20:00 Past Med/Surg History Medical History Renal lesion BPH (benign prostatic hyperplasia) 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 Rosacea Osteopenia Hyperlipidemia Carotid artery plaque Venous insufficiency (chronic) (peripheral) Nipple anomaly Memory changes Malignant melanoma of skin Left inguinal hernia Impacted cerumen Encounter for screening for malignant neoplasm of prostate Bilateral inguinal hernia Bilateral impacted cerumen Carotid artery plaque Sensorineural hearing loss (SNHL) of both ears Melanoma Hx of melanoma of skin LEG Surgical History Hx of biopsy (12/10/22) Left Thigh Muscle Biopsy and Culture(Left) - Young Villalta DO, FACS History of cataract extraction with lens replacement RIGHT Was given 2mg of versed without apparent complications Hx of hernia repair History of colostomy Family History Mother Colorectal cancer Denies family history of Ovarian cancer Prostate cancer Myocardial infarction Breast cancer Lung cancer Stroke Social History Smoking Status: Former smoker Tobacco Type: Cigarettes Cigarettes Per Day: HX OF PIPE USE, QUIT IN 2000; Second Hand Exposure: No; Do You Dip or Chew Tobacco: No; Hx Alcohol Use: No Hx Substance Use: No Preferred Language: Serbian Communication Ability: Effective Visual Impairment: No Limitations Hearing Ability: Normal Mentally Retarded Teacher Required: No Beliefs That Will Affect Care: None marital status: Current Living Situation: Spouse Current Living Situation Comment: lives in split level home with elderly current occupational status: retired Feels Safe at Home: Yes Childhood Exposure to Second-Hand Smoke: No Dental Care, Regularly: Yes Physical Activity Frequency: Does not Exercise Seatbelt Use: always Sunscreen Use: No Assistive Devices: None Physical Exam Vital Signs Vital Signs - 24 hr 04/29/23 15:36 04/29/23 19:17 04/29/23 20:29 Temperature 36.6 C Temperature Source Temporal Artery Scan Pulse Rate 111 H 84 Pulse Rate [Finger] 96 H Pulse Rhythm [Finger] Regular Respiratory Rate 18 18 18 Respiratory Effort / Characteristics Non-Labored Spontaneous Non-Labored Respiratory Depth Normal Normal Respiratory Pattern Regular Blood Pressure 126/74 Blood Pressure [Right Arm] 137/83 Blood Pressure Mean 91 Blood Pressure Mean [Right Arm] 101 Blood Pressure Position Sitting Pulse Oximetry 98 97 99 Oxygen Delivery Method Room Air Room Air Room Air Sepsis Recent Fever Within 48 Hours No Sepsis New/Unexplained Change in Mental Status N/A Sepsis Action Taken by Nursing No Action Required 04/29/23 21:00 04/29/23 23:00 04/30/23 01:00 Temperature Temperature Source Pulse Rate Pulse Rate [Finger] 80 87 78 Pulse Rhythm [Finger] Respiratory Rate 16 18 18 Respiratory Effort / Characteristics Respiratory Depth Respiratory Pattern Blood Pressure Blood Pressure [Right Arm] 160/82 H 168/90 H 176/94 H Blood Pressure Mean Blood Pressure Mean [Right Arm] 108 116 121 Blood Pressure Position Pulse Oximetry 98 98 98 Oxygen Delivery Method Room Air Room Air Room Air Sepsis Recent Fever Within 48 Hours Sepsis New/Unexplained Change in Mental Status Sepsis Action Taken by Nursing Physical Exam GENERAL: oriented to person, place, and time. appears well-developed and well- nourished. HENT: Exam performed. - Head: Normocephalic and atraumatic. EYES: Conjunctivae and EOM are normal. Right eye exhibits no discharge. Left eye exhibits no discharge. No scleral icterus. NECK: Normal range of motion. Neck supple. No JVD present. CV: Normal rate, regular rhythm, normal heart sounds and intact distal pulses. There is no peripheral edema. Palpable radial pulses bue. PULM/CHEST: Effort normal and breath sounds normal. No respiratory distress. No stridor. no wheezes. no rales. ABD: The abdomen is soft. There is no tenderness. NEURO: Motor and sensation grossly intact. SKIN: Skin is warm and dry. He is not diaphoretic. PSYCH: normal mood and affect. Behavior is normal. Judgment and thought content normal. Course Course 2001: The patient was evaluated in room C5. A complete history and physical exam was performed Cardiac monitoring: An order was placed for continuous cardiac monitoring. The monitor shows a rate of 90 with sinus rhythm interpreted by me [id number]: Vital signs stable. Labs show white blood cell count 10.66 hemoglobin 12.5. Creatinine is up to 2.8 up from 1.13 2 months ago. López catheter placed. Urinalysis does not appear infected. CT of the abdomen pelvis does show constipation no bowel obstruction. It also shows severe bilateral hydronephrosis and hydroureter more severe on the left than the right. There is significant perinephric and ureteral stranding suggestive of left urinary backflow. It stated it could be a urinary blood clot or neoplasm. Discussed case with RADHA Miller on-call for Dr. Delvalle who states he will evaluate the patient. Patient will be admitted to the [facility] Hospitalist team Dr. Templeton's team has been notified. Administered Medications Sodium Chloride (Nss) 1,000 mls @ 125 mls/hr IV .Q8H BERNADETTE Stop: 05/29/23 22:59 Last Admin: 04/29/23 23:30 Dose: 125 mls/hr Documented By: VI Discontinued Medications Ceftriaxone Sodium (Rocephin) 2,000 mg in 50 mls @ 100 mls/hr IV NOW STA Stop: 04/29/23 23:39 Last Infusion: 04/30/23 00:36 Dose: Infused Documented By: Admin: 04/29/23 23:30 Dose: 100 mls/hr Documented By: VI Lidocaine HCl (Lidocaine 2% Jelly 5 Ml Tube) Confirm Administered Dose 5 ml EXT .STK-MED ONE Stop: 04/29/23 23:18 Last Admin: 04/29/23 23:30 Dose: 5 ml Documented By: VI Tamsulosin HCl (Tamsulosin Hcl 0.4 Mg Cap) 0.4 mg PO NOW STA Stop: 04/30/23 01:08 Last Admin: 04/30/23 01:28 Dose: 0.4 mg Documented By: VI Medical Decision Making Laboratory Data Attestation: I reviewed the patient's lab results. 04/29/23 16:00 04/29/23 16:00 Lab Results 04/29/23 04/29/23 Range/Units 16:00 Unknown WBC 10.66 (4.8-10.8) K/ul RBC 4.12 L (4.70-6.10) M/uL Hgb 12.5 L (14.0-18.0) g/dl Hct 37.2 L (42.0-52.0) % MCV 90.3 (80.0-100.0) fL MCH 30.3 (25.0-34.0) pg MCHC 33.6 (32.0-36.0) g/dL RDW Std Deviation 50.6 H (36.4-46.3) fL RDW Coeff of Marcial 15.2 H (11.5-14.5) % Plt Count 261 (130-400) K/uL MPV 9.4 (9.4-12.4) fL Immature Gran % (Auto) 0.5 % Neut % (Auto) 89.4 % Lymph % (Auto) 5.9 % [place] % (Auto) 4.0 % Eos % (Auto) 0.1 % Baso % (Auto) 0.1 % Neut # (Auto) 9.53 H (1.40-6.50) K/uL Lymph # (Auto) 0.63 L (1.20-3.40) K/uL [place] # (Auto) 0.43 (0.11-0.59) K/uL Eos # (Auto) 0.01 (0.00-0.50) K/uL Baso # (Auto) 0.01 (0.00-0.20) K/uL Immature Gran # (Auto) 0.05 (0.01-0.20) K/uL PT 12.3 H (9.0-12.0) Seconds INR 1.1 (0.9-1.1) Sodium 141 (136-145) mmol/L Potassium 3.7 (3.5-5.1) mmol/L Chloride 106 (98-107) mmol/L Carbon Dioxide 25 (21-32) mmol/L Anion Gap 10 (3-11) BUN 63 H (6-23) mg/dl Creatinine 2.80 H (0.6-1.4) mg/dl Est Cr Clr Drug Dosing Not Reportable Est GFR ( Amer) 22.5 ml/min Est GFR (Non-Af Amer) 19.4 ml/min BUN/Creatinine Ratio 22.5 H (10-20) Glucose 131 H (70-99(Fasting)) mg/dl Calcium 9.0 (8.6-10.3) mg/dl Total Bilirubin 0.6 (0.2-1.0) mg/dl AST 15 (13-39) U/L ALT 14 (7-52) U/L Alkaline Phosphatase 59 (34-104) U/L Troponin I High Sens 13.7 (0-20) pg/ml Total Protein 6.2 (6.0-8.3) gm/dl Albumin 3.6 (3.4-5.0) gm/dl Globulin 2.6 (2.5-4.0) gm/dl Albumin/Globulin Ratio 1.4 (0.9-2) Lipase 16 (11-82) U/L Urine Color Brown Urine Appearance Turbid A (Clear) Urine pH 5.5 (4.5-7.5) Ur Specific [place] 1.020 (1.000-1.030) Urine Protein 3+ H (Negative) Urine Glucose (UA) Negative (Negative) Urine Ketones Negative (Negative) Urine Blood 3+ H (Negative) Urine Nitrite Positive A (Negative) Urine Bilirubin 1+ H (Negative) Urine Urobilinogen Negative (Negative) Ur Leukocyte Esterase Trace H (Negative) Urine RBC >30 H (0-4) /hpf Urine WBC 10-30 H (0-5) /hpf Ur Epithelial Cells 5-10 H (0-5) /lpf Urine Bacteria 3+ H (Negative) Granular Casts 1-5 H (0) /lpf Imaging Data Radiologist's Impression: Chest/Abdomen X-ray 04/29/23 15:42 PA CHEST RADIOGRAPH AND UPRIGHT AND SUPINE AP RADIOGRAPHS OF THE ABDOMEN CLINICAL HISTORY: abd/back pain, constipation, SOB COMPARISON STUDY: Chest CT December 12, 2022. Chest radiograph March 18, 2023. MRI of the abdomen January 20, 2023. CT of the abdomen and pelvis December 07, 2022. FINDINGS: Lungs are clear. No pneumothorax or pleural effusion. Cardiac size is normal. Mediastinal contours are normal. No evidence for pulmonary edema. There is no evidence for free air. Gas throughout small and large bowel is present. There is no evidence for a bowel obstruction. There is a moderate to large amount of stool within the colon and rectum. IMPRESSION: 1. No free air or evidence for a bowel obstruction. 2. Moderate to large amount of stool within the colon and rectum. 3. No acute cardiopulmonary findings. ACT 112: Negative or not required by law. Electronically signed by: Tony Bryan M.D. 04/29/2023 4:52 PM Abdomen/Pelvis CT 04/29/23 18:22 Exam(s): CT ABDOMEN + PELVIS Without Contrast EXAM: CT Abdomen and Pelvis Without Intravenous Contrast CLINICAL HISTORY: Reason for exam: hematuria. TECHNIQUE: Axial computed tomography images of the abdomen and pelvis without intravenous contrast. Automated exposure control was utilized for the study. A dose lowering technique was utilized adhering to the principles of ALARA. COMPARISON: 12/07/2022. FINDINGS: Lung bases: Bilateral lower lobe atelectasis. Pleural space: Mild left-sided pleural effusion. Heart: Unremarkable. No cardiomegaly. No significant pericardial effusion. Normal cardiac size with coronary artery calcifications. ABDOMEN: Liver: Unremarkable. Gallbladder and bile ducts: Unremarkable. No calcified stones. No ductal dilation. Pancreas: Unremarkable. No ductal dilation. Spleen: Unremarkable. No splenomegaly. Adrenals: Unremarkable. No mass. Kidneys and ureters: Severe bilateral hydronephrosis and hydroureter. There is severe left perinephric and ureteral stranding. There is no stone along the trajectory of bilateral ureters. Stomach and bowel: There is increased fecal debris within the colon with areas of mild gaseous distention suggestive of constipation. The stomach is decompressed. Mild scattered diverticulosis with no signs of diverticulitis. PELVIS: Appendix: No findings to suggest acute appendicitis. Bladder: High density along the posterior urinary bladder wall suggestive of blood clots. No stones. Reproductive: There is prostate enlargement with soft tissue density along the posterior lateral urinary bladder wall, cannot exclude prostate versus urinary bladder neoplasm. ABDOMEN and PELVIS: Intraperitoneal space: Unremarkable. No free air. No significant fluid collection. Bones/joints: Degenerative disease of the spine, bilateral SI joints and hips. No acute fracture. No dislocation. Soft tissues: Unremarkable. Vasculature: Calcified atherosclerotic disease throughout the aorta with no aneurysm. Lymph nodes: Unremarkable. No enlarged lymph nodes. IMPRESSION: 1. Severe bilateral hydronephrosis and hydroureter, more severe on the left compared to the right . Significant perinephric and ureteral stranding on the left suggestive of urinary backflow otherwise no stone along the trajectory of the bilateral ureters. In the context of prostate enlargement with thickening of the posterolateral urinary bladder wall, cannot exclude neoplasm. Likely posterior urinary bladder blood clot. Clinical correlation recommended and urological consultation recommended. 2. Constipation. No bowel obstruction. 3. Mild left pleural effusion with bilateral lower lobe atelectasis. Electronically signed by: Sommer Acosta MD 04/30/23 00:10 AM ECG Data Attestation: I personally reviewed and interpreted this ECG as follows: Rate (beats per minute): 105 Rhythm: + sinus tachycardia ECG Intervals/blocks: + Normal QRS, + Normal CO and + Normal QT-c ECG ST segments: + Normal ST segments MDM Narrative 2002: The patient was evaluated in room C5. A complete history and physical exam was performed Cardiac monitoring: An order was placed for continuous cardiac monitoring. The monitor shows a rate of 90 with sinus rhythm interpreted by co [id number]: Vital signs stable. Labs show white blood cell count 10.66 hemoglobin 12.5. Creatinine is up to 2.8 up from 1.13 2 months ago. López catheter placed. Urinalysis does not appear infected. CT of the abdomen pelvis does show constipation no bowel obstruction. It also shows severe bilateral hydronephrosis and hydroureter more severe on the left than the right. There is significant perinephric and ureteral stranding suggestive of left urinary backflow. It stated it could be a urinary blood clot or neoplasm. Discussed case with RADHA Miller on-call for Dr. Delvalle who states he will evaluate the patient. Patient will be admitted to the [facility] hospitalist team Dr. Templeton's team has been notified. Impression & Plan GYPSY (acute kidney injury), Hydronephrosis Discharge Plan Visit Data Chief Complaint: Abdominal Pain Stated Complaint: ABD PAIN, REF BY DOC ED Provider: Scott Govea Discharge Problem: GYPSY (acute kidney injury), Hydronephrosis Patient Disposition: Admitted As Inpatient Discharge Instructions Interventions: ED Discharge Assessment Last Done: 04/30/23 02:09 Forms Stand Alone Forms: My [facility] Prescriptions Prescriptions: No Action dutasteride [Avodart] 0.5 mg capsule 0.5 mg PO DAILY Qty: 60 2RF tamsulosin [Flomax] 0.4 mg capsule 0.4 mg PO DAILY Qty: 60 2RF acetaminophen 325 mg capsule 650 mg PO Q4H PRN (Reason: Breakthrough Pain) albuterol sulfate 90 mcg/actuation aerosol powdr breath activated 2 inh inhalation Q6H PRN (Reason: sob) docusate sodium [Colace] 100 mg capsule 100 mg PO DAILY PRN (Reason: constipation) doxycycline hyclate 100 mg capsule 100 mg PO BID Rx Instructions: Daviers Disease polyethylene glycol 3350 [Miralax] 17 gram/dose powder 17 g PO DAILY multivitamin Tablet 1 tab PO DAILY clopidogrel [Plavix] 75 mg tablet 75 mg PO DAILY Qty: 30 11RF prednisone 5 mg Tablet 5 mg PO DAILY Rx Instructions: TOTAL DOSE 15 MG--TAKES WITH 1/2 OF 20 MG TAB.see taper instructions prednisone 20 mg tablet 10 mg PO DAILY Rx Instructions: TOTAL DOSE 15 MG--TAKES WITH 5 MG TAB. Referrals Referrals: Akil Ordoñez MD [Primary Care Provider] - Discharge Problem: Hydronephrosis Qualifiers: Hydronephrosis type: unspecified Qualified Code(s): N13.30 - Unspecified hydronephrosis
--- NOTE | 2023-04-30 00:11 | CT Scan Report ---
Exam(s): CT ABDOMEN + PELVIS Without Contrast EXAM: CT Abdomen and Pelvis Without Intravenous Contrast CLINICAL HISTORY: Reason for exam: hematuria. TECHNIQUE: Axial computed tomography images of the abdomen and pelvis without intravenous contrast. Automated exposure control was utilized for the study. A dose lowering technique was utilized adhering to the principles of ALARA. COMPARISON: 12/07/2022. FINDINGS: Lung bases: Bilateral lower lobe atelectasis. Pleural space: Mild left-sided pleural effusion. Heart: Unremarkable. No cardiomegaly. No significant pericardial effusion. Normal cardiac size with coronary artery calcifications. ABDOMEN: Liver: Unremarkable. Gallbladder and bile ducts: Unremarkable. No calcified stones. No ductal dilation. Pancreas: Unremarkable. No ductal dilation. Spleen: Unremarkable. No splenomegaly. Adrenals: Unremarkable. No mass. Kidneys and ureters: Severe bilateral hydronephrosis and hydroureter. There is severe left perinephric and ureteral stranding. There is no stone along the trajectory of bilateral ureters. Stomach and bowel: There is increased fecal debris within the colon with areas of mild gaseous distention suggestive of constipation. The stomach is decompressed. Mild scattered diverticulosis with no signs of diverticulitis. PELVIS: Appendix: No findings to suggest acute appendicitis. Bladder: High density along the posterior urinary bladder wall suggestive of blood clots. No stones. Reproductive: There is prostate enlargement with soft tissue density along the posterior lateral urinary bladder wall, cannot exclude prostate versus urinary bladder neoplasm. ABDOMEN and PELVIS: Intraperitoneal space: Unremarkable. No free air. No significant fluid collection. Bones/joints: Degenerative disease of the spine, bilateral SI joints and hips. No acute fracture. No dislocation. Soft tissues: Unremarkable. Vasculature: Calcified atherosclerotic disease throughout the aorta with no aneurysm. Lymph nodes: Unremarkable. No enlarged lymph nodes. IMPRESSION: 1. Severe bilateral hydronephrosis and hydroureter, more severe on the left compared to the right . Significant perinephric and ureteral stranding on the left suggestive of urinary backflow otherwise no stone along the trajectory of the bilateral ureters. In the context of prostate enlargement with thickening of the posterolateral urinary bladder wall, cannot exclude neoplasm. Likely posterior urinary bladder blood clot. Clinical correlation recommended and urological consultation recommended. 2. Constipation. No bowel obstruction. 3. Mild left pleural effusion with bilateral lower lobe atelectasis. Electronically signed by: Sommer Acosta MD 04/30/23 00:10 AM
--- NOTE | 2023-04-30 00:55 | Urology Consultation ---
Date of Consultation April 30, 2023 Assessment & Plan (1) Hematuria: I discussed with treating emergency room physician and the patient is being admitted on the hospital service. From a urologic perspective we recommend the following I suspect the patient's urologic symptoms are secondary to an obstructive process, likely an enlarged prostate, however an underlying neoplasm cannot be excluded at this point The patient has a López catheter in place and this should be maintained for accurate I's and O's as well as bladder decompression. With this modality hopefully his kidney function will improve There is concern that patient has an underlying urinary tract infection. A urine culture has been sent and the results will be followed. In the interim he has been started on antibiotics in form of Rocephin which should continue until culture results are available The patient takes Flomax as well as dutasteride. I discussed with the hospital service and they are planning on making some adjustments to his medications to improve his urinary situation IV fluids for hydration should be provided Nephrotoxins should be avoided Serial labs to be followed Will keep the patient n.p.o. for the present time in case any procedural intervention will be performed tomorrow, although I am not sure this will be necessary at this time and his hematuria workup can potentially be completed as an outpatient Additional recommendations will be based on his clinical course as unfolds (2) Urinary retention: (3) Acute kidney injury: History of Present Illness Reason for Consultation: Hematuria Urinary retention Acute kidney injury History of Present Illness This is an 88-year-old male who presented to the emergency department at the prompting of his primary care team as well as his family. Patient notes that he has had on and off hematuria since 2021. According to the patient and his family he was seen at the [place] [facility] where he was treated for urinary tract infection. They report he is treated with at least 2 courses of antibiotics and notes that his hematuria never fully clears and continues to come and go. Patient finally presented to the emergency department as he has been having some generalized abdominal pain. He notes that he is having issues with constipation and has not had a good bowel movement in approximately 2 weeks. In addition the patient notes that he is again experiencing hematuria. He does note that he can pass an occasional blood clot with his urine. He does report some urinary hesitancy and notes that his urine stream is not quite as strong as what it once was. He does feel that when he urinates he can empty his bladder the hallway. He does report some back pain. He denies any fevers, shakes, or chills. He gutierrez s report an unspecified weight loss. The patient does not take any anticoagulants but he does take Plavix. Patient says that he has seen a urologist in the past and he believes it was [facility] physician [facility]. Review of records show that his most recent visit available for my review was on 04/30/[address] Acevedo of [facility] urology. Patient was seen at that time for microscopic hematuria. Dr. Garland did perform a office cystoscopy were noted to tumors or kidney stones were noted. There is also no CT scan evidence of the cause of his microscopic hematuria noted at that time. Since arrival to the hospital the patient has had labs and imaging which I independent reviewed. CT scan of the abdomen pelvis shows that there is severe bilateral hydronephrosis and hydroureter with some perinephric and ureteral stranding. There is noted prostate enlargement and there is no identified nephrolithiasis. There was some concern the patient may have some blood clot in his bladder but underlying mass could not be excluded. There is no evidence of bowel obstruction and patient was noted to have the significant fecal burden. These findings were consistent was noted on obstruction series that was previously taken as well. Labs include a CBC her white blood cell count platelet count are normal. His hemoglobin and hematocrit are 12.5 and 37.2. Chemistry profile showed sodium and potassium were normal. His BUN and creatinine were 63 and 2.8 (the patient's previous creatinine level was noted to be normal). Coagulation studies are within the normal range. Urinalysis showed turbid urine with 3+ blood and was also positive for nitrites. There is trace leukocyte Estrace and pyuria with 10-13 white blood cells per high-power field as well as 3+ bacteria. Allergies Allergy/AdvReac Type Severity Reaction Status Date / Time pollen extracts Allergy Mild Congestion Verified 04/29/23 20:00 Home Medications Medication Instructions Recorded Confirmed Type acetaminophen 325 mg capsule 650 mg PO Q4H PRN Breakthrough Pain 12/17/22 04/29/23 History albuterol sulfate 90 mcg/actuation 2 inh inhalation Q6H PRN sob 12/17/22 04/29/23 History breath activated powder inhaler docusate sodium 100 mg capsule 100 mg PO DAILY PRN constipation 12/17/22 04/29/23 History (Colace) doxycycline hyclate 100 mg capsule 100 mg PO BID 12/17/22 04/29/23 History multivitamin 1 tab PO DAILY 12/17/22 04/29/23 History polyethylene glycol 3350 17 17 g PO DAILY 12/17/22 04/29/23 History gram/dose oral powder (Miralax) dutasteride 0.5 mg capsule 0.5 mg PO DAILY #60 caps 01/14/23 04/29/23 Rx (Avodart) tamsulosin 0.4 mg capsule (Flomax) 0.4 mg PO DAILY #60 caps 01/14/23 04/29/23 Rx clopidogrel 75 mg tablet (Plavix) 75 mg PO DAILY #30 tabs 01/28/23 04/29/23 Rx prednisone 20 mg tablet 10 mg PO DAILY 04/29/23 04/29/23 History prednisone 5 mg tablet 5 mg PO DAILY 04/29/23 04/29/23 History Patient History Medical History Renal lesion BPH (benign prostatic hyperplasia) 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 Rosacea Osteopenia Hyperlipidemia Carotid artery plaque Venous insufficiency (chronic) (peripheral) Nipple anomaly Memory changes Malignant melanoma of skin Left inguinal hernia Impacted cerumen Encounter for screening for malignant neoplasm of prostate Bilateral inguinal hernia Bilateral impacted cerumen Carotid artery plaque Sensorineural hearing loss (SNHL) of both ears Melanoma Hx of melanoma of skin LEG Surgical History Hx of biopsy (12/10/22) Left Thigh Muscle Biopsy and Culture(Left) - Young Villalta, DO, FACS History of cataract extraction with lens replacement RIGHT Was given 2mg of versed without apparent complications Hx of hernia repair History of colostomy Family History Mother Colorectal cancer Denies family history of Ovarian cancer Prostate cancer Myocardial infarction Breast cancer Lung cancer Stroke Social History Smoking Status: Former smoker Tobacco Type: Cigarettes Cigarettes Per Day: HX OF PIPE USE, QUIT IN 2000; Second Hand Exposure: No; Do You Dip or Chew Tobacco: No; Hx Alcohol Use: No Hx Substance Use: No Preferred Language: [place] Communication Ability: Effective Visual Impairment: No Limitations Hearing Ability: Normal Sharepoint Specialist Required: No Beliefs That Will Affect Care: None marital status: Current Living Situation: Spouse Current Living Situation Comment: lives in split level home with elderly current occupational status: retired Feels Safe at Home: Yes Childhood Exposure to Second-Hand Smoke: No Dental Care, Regularly: Yes Physical Activity Frequency: Does not Exercise Seatbelt Use: always Sunscreen Use: No Assistive Devices: None Review of Systems Constitutional: no fever and no chills Eyes: + corrective lenses Ear, Nose, Mouth, Throat: no ear pain and no hearing loss Respiratory: no cough Cardiovascular: no chest pain Gastrointestinal: as per Subjective / HPI Genitourinary: + as per Subjective / HPI Musculoskeletal: + back pain Integumentary: no rash Neurologic: no localized weakness Physical Exam Constitutional: + thin; no acute distress Eyes: Wears glasses ENMT: Ears: no hearing impairment Mouth: no oropharynx abnormality Neck: trachea midline Respiratory: normal respiratory effort; no respiratory distress and no labored breathing Cardiovascular: Rate/Rhythm: regular rate and regular rhythm Gastrointestinal (Abdomen): Abdomen is soft and nonrigid. Patient did have some generalized tenderness with palpation. There is no rebound tenderness or guarding Musculoskeletal: No calf tenderness Skin: no rashes Neurologic: moves all extremities Psychiatric: A+Ox3, euthymic affect Genitourinary: Slight CVA tenderness to percussion noted bilaterally. The patient did have a López catheter in place that was placed in the emergency departmentin the collection bag there is scotty-colored urine with no visible blood clots. The urine draining in the tubing itself is somewhat clear at the time of my exam Results & Data Vital Signs (Past 12 Hours) Vital Signs Temp Pulse Pulse Resp BP BP Pulse Ox 04/29/23 23:00 87 18 168/90 H 98 04/29/23 21:00 80 16 160/82 H 98 04/29/23 20:29 84 18 99 04/29/23 19:17 96 H 18 137/83 97 04/29/23 15:36 36.6 C 111 H 18 126/74 98 O2 Del Method 04/29/23 23:00 Room Air 02/08/24 21:00 Room Air 04/29/23 20:29 Room Air 04/29/23 19:17 Room Air 04/29/23 15:36 Room Air PG Care Time/CCT Total # of Minutes Spent Total Time Spent with Patient: Total time spent is greater than 50% in coordination of care (as documented) at patient's floor/unit and/or counseling patient: Coding Level of Care Code 50999 INT INP/OBS CARE 3/75MIN Diagnoses Hematuria R31.9 Urinary retention R33.9 Acute kidney injury N17.9
--- NOTE | 2023-04-30 01:14 | History & Physical Report ---
Date of Service April 30, 2023 Assessment & Plan (1) Bilateral hydronephrosis: (2) BPH loc w urin obs/LUTS: (3) GYPSY (acute kidney injury): (4) Hematuria: (5) Myositis of both thighs: Plan Severe bilateral hydronephrosis and hydroureter, left greater than right/BPH with LUTS/ posterior urinary bladder with blood clot- N.p.o. 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 He has noted blood in urine and abdominal pain present for the past month, but 1 spoke with outpatient physician, he was advised to come to the emergency department for assessment Primary Care Provider: Akil Ordoñez MD The patient is a 88-year-old male with a past medical history including bullous pemphigoid, hyperlipidemia, BPH, COPD, thigh myositis, pyelonephritis, and popliteal artery aneurysm. The patient presents to the emergency department after having symptoms of abdominal pain and hematuria for the past month, worsening over the past week, and advised to come to the ED by his outpatient physician. Symptoms also include generalized weakness, fatigue and worsening memory issues Allergies Allergy/AdvReac Type Severity Reaction Status Date / Time pollen extracts Allergy Mild Congestion Verified 04/29/23 20:00 Home Medications Medication Instructions Recorded Confirmed Type acetaminophen 325 mg capsule 650 mg PO Q4H PRN Breakthrough Pain 12/17/22 04/29/23 History albuterol sulfate 90 mcg/actuation 2 inh inhalation Q6H PRN sob 12/17/22 04/29/23 History breath activated powder inhaler docusate sodium 100 mg capsule 100 mg PO DAILY PRN constipation 12/17/22 04/29/23 History (Colace) doxycycline hyclate 100 mg capsule 100 mg PO BID 12/17/22 04/29/23 History multivitamin 1 tab PO DAILY 12/17/22 04/29/23 History polyethylene glycol 3350 17 17 g PO DAILY 12/17/22 04/29/23 History gram/dose oral powder (Miralax) dutasteride 0.5 mg capsule 0.5 mg PO DAILY #60 caps 01/14/23 04/29/23 Rx (Avodart) tamsulosin 0.4 mg capsule (Flomax) 0.4 mg PO DAILY #60 caps 01/14/23 04/29/23 Rx clopidogrel 75 mg tablet (Plavix) 75 mg PO DAILY #30 tabs 01/28/23 04/29/23 Rx prednisone 20 mg tablet 10 mg PO DAILY 04/29/23 04/29/23 History prednisone 5 mg tablet 5 mg PO DAILY 04/29/23 04/29/23 History Past Med/Surg History Medical History Renal lesion BPH (benign prostatic hyperplasia) 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 Rosacea Osteopenia Hyperlipidemia Carotid artery plaque Venous insufficiency (chronic) (peripheral) Nipple anomaly Memory changes Malignant melanoma of skin Left inguinal hernia Impacted cerumen Encounter for screening for malignant neoplasm of prostate Bilateral inguinal hernia Bilateral impacted cerumen Carotid artery plaque Sensorineural hearing loss (SNHL) of both ears Melanoma Hx of melanoma of skin LEG Surgical History Hx of biopsy (12/10/22) Left Thigh Muscle Biopsy and Culture(Left) - Young Villalta DO, FACS History of cataract extraction with lens replacement RIGHT Was given 2mg of versed without apparent complications Hx of hernia repair History of colostomy Family History Mother Colorectal cancer Denies family history of Ovarian cancer Prostate cancer Myocardial infarction Breast cancer Lung cancer Stroke Social History Smoking Status: Never smoker Tobacco Type: Cigarettes Cigarettes Per Day: HX OF PIPE USE, QUIT IN 2000; Second Hand Exposure: No; Do You Dip or Chew Tobacco: No; Hx Alcohol Use: No Hx Substance Use: No Preferred Language: Lao Communication Ability: Effective Visual Impairment: No Limitations Hearing Ability: Normal Trace Evidence Technician Required: No Beliefs That Will Affect Care: None marital status: Current Living Situation: Spouse Current Living Situation Comment: lives in split level home with elderly current occupational status: retired Other Information That Helps Us Care for You: No Feels Safe at Home: Yes Safety Concerns: Feels Safe At This Time Childhood Exposure to Second-Hand Smoke: No Dental Care, Regularly: Yes Physical Activity Frequency: Does not Exercise Seatbelt Use: always Sunscreen Use: No Assistive Devices: None Review of Systems Review of Systems: The patient denies chest pain, palpitations, shortness of breath, dyspnea on exertion, cough, lower extremity swelling, sore throat, fevers, chills, sweats, nausea, vomiting, diarrhea , constipation, blood in stool, lightheadedness, dizziness, headache, loss of consciousness, rash, abnormal bruising or bleeding, focal or generalized weakness, generalized arthralgias or myalgias, back or neck pain, or night sweats. The review of systems is otherwise negative other than for that already noted above, and at least 10 systems have been reviewed. Physical Exam Physical Exam: The patient is awake, alert and oriented 3, well developed and well nourished, normocephalic and atraumatic, lying in bed and in no acute distress. HEENT--PERRL, EOMI, mucous membranes and oropharynx mildly dry. Neck--supple. No JVD. No bruits. Thyroid normal, trachea midline, no adenopathy. Heart--normal S1 and S2. No murmurs, rubs or gallops. Lungs--clear bilaterally, no respiratory distress, no accessory muscle use. Abdomen--normal bowel sounds and soft. Nontender. Nondistended, no hernias or masses, no organomegaly. Extremities--no cyanosis or clubbing. No edema. Dermatologic--normal skin turgor, normal color, no abnormal lymph nodes, no rash. Neurologic--cranial nerves II through XII grossly intact. Rheumatologic--limited exam Psychiatric--normal affect. Results & Data Results & Data Vital Signs (Past 12 Hours) Vital Signs Temp Pulse Pulse Resp BP BP Pulse Ox 04/29/23 23:00 87 18 168/90 H 98 04/29/23 21:00 80 16 160/82 H 98 04/29/23 20:29 84 18 99 04/29/23 19:17 96 H 18 137/83 97 04/29/23 15:36 36.6 C 111 H 18 126/74 98 O2 Del Method 04/29/23 23:00 Room Air 04/29/23 21:00 Room Air 04/29/23 20:29 Room Air 04/29/23 19:17 Room Air 04/29/23 15:36 Room Air Laboratory Results Laboratory Results WBC 10.66 K/ul (4.8-10.8) 04/29/23 16:00 RBC 4.12 M/uL (4.70-6.10) L 04/29/23 16:00 Hgb 12.5 g/dl (14.0-18.0) L 04/29/23 16:00 Hct 37.2 % (42.0-52.0) L 04/29/23 16:00 MCV 90.3 fL (80.0-100.0) 04/29/23 16:00 MCH 30.3 pg (25.0-34.0) 04/29/23 16:00 MCHC 33.6 g/dL (32.0-36.0) 04/29/23 16:00 RDW Std Deviation 50.6 fL (36.4-46.3) H 04/29/23 16:00 RDW Coeff of Marcial 15.2 % (11.5-14.5) H 04/29/23 16:00 Plt Count 261 K/uL (130-400) 04/29/23 16:00 MPV 9.4 fL (9.4-12.4) 04/29/23 16:00 Immature Gran % (Auto) 0.5 % 04/29/23 16:00 Neut % (Auto) 89.4 % 04/29/23 16:00 Lymph % (Auto) 5.9 % 04/29/23 16:00 [place] % (Auto) 4.0 % 04/29/23 16:00 Eos % (Auto) 0.1 % 04/29/23 16:00 Baso % (Auto) 0.1 % 04/29/23 16:00 Neut # (Auto) 9.53 K/uL (1.40-6.50) H 04/29/23 16:00 Lymph # (Auto) 0.63 K/uL (1.20-3.40) L 04/29/23 16:00 [place] # (Auto) 0.43 K/uL (0.11-0.59) 04/29/23 16:00 Eos # (Auto) 0.01 K/uL (0.00-0.50) 04/29/23 16:00 Baso # (Auto) 0.01 K/uL (0.00-0.20) 04/29/23 16:00 Immature Gran # (Auto) 0.05 K/uL (0.01-0.20) 04/29/23 16:00 PT 12.3 Seconds (9.0-12.0) H 04/29/23 16:00 INR 1.1 (0.9-1.1) 04/29/23 16:00 Sodium 141 mmol/L (136-145) 04/29/23 16:00 Potassium 3.7 mmol/L (3.5-5.1) 04/29/23 16:00 Chloride 106 mmol/L (98-107) 04/29/23 16:00 Carbon Dioxide 25 mmol/L (21-32) 04/29/23 16:00 Anion Gap 10 (3-11) 04/29/23 16:00 BUN 63 mg/dl (6-23) H 04/29/23 16:00 Creatinine 2.80 mg/dl (0.6-1.4) H 04/29/23 16:00 Est Cr Clr Drug Dosing Not Reportable 04/29/23 16:00 Est GFR ( Amer) 22.5 ml/min 04/29/23 16:00 Est GFR (Non-Af Amer) 19.4 ml/min 04/29/23 16:00 BUN/Creatinine Ratio 22.5 (10-20) H 04/29/23 16:00 Glucose 131 mg/dl (70-99(Fasting)) H 04/29/23 16:00 Calcium 9.0 mg/dl (8.6-10.3) 04/29/23 16:00 Total Bilirubin 0.6 mg/dl (0.2-1.0) 04/29/23 16:00 AST 15 U/L (13-39) 04/29/23 16:00 ALT 14 U/L (7-52) 04/29/23 16:00 Alkaline Phosphatase 59 U/L (34-104) 04/29/23 16:00 Troponin I High Sens 13.7 pg/ml (0-20) 04/29/23 16:00 Total Protein 6.2 gm/dl (6.0-8.3) 04/29/23 16:00 Albumin 3.6 gm/dl (3.4-5.0) 04/29/23 16:00 Globulin 2.6 gm/dl (2.5-4.0) 04/29/23 16:00 Albumin/Globulin Ratio 1.4 (0.9-2) 04/29/23 16:00 Lipase 16 U/L (11-82) 04/29/23 16:00 Urine Color Brown 04/29/23 Unknown Urine Appearance Turbid (Clear) A 04/29/23 Unknown Urine pH 5.5 (4.5-7.5) 04/29/23 Unknown Ur Specific [place] 1.020 (1.000-1.030) 04/29/23 Unknown Urine Protein 3+ (Negative) H 04/29/23 Unknown Urine Glucose (UA) Negative (Negative) 04/29/23 Unknown Urine Ketones Negative (Negative) 04/29/23 Unknown Urine Blood 3+ (Negative) H 04/29/23 Unknown Urine Nitrite Positive (Negative) A 04/29/23 Unknown Urine Bilirubin 1+ (Negative) H 04/29/23 Unknown Urine Urobilinogen Negative (Negative) 04/29/23 Unknown Ur Leukocyte Esterase Trace (Negative) H 04/29/23 Unknown Urine RBC >30 /hpf (0-4) H 04/29/23 Unknown Urine WBC 10-30 /hpf (0-5) H 04/29/23 Unknown Ur Epithelial Cells 5-10 /lpf (0-5) H 04/29/23 Unknown Urine Bacteria 3+ (Negative) H 04/29/23 Unknown Granular Casts 1-5 /lpf (0) H 04/29/23 Unknown Impressions Chest/Abdomen X-ray 04/29/23 15:42 PA CHEST RADIOGRAPH AND UPRIGHT AND SUPINE AP RADIOGRAPHS OF THE ABDOMEN CLINICAL HISTORY: abd/back pain, constipation, SOB COMPARISON STUDY: Chest CT December 12, 2022. Chest radiograph March 18, 2023. MRI of the abdomen January 20, 2023. CT of the abdomen and pelvis December 07, 2022. FINDINGS: Lungs are clear. No pneumothorax or pleural effusion. Cardiac size is normal. Mediastinal contours are normal. No evidence for pulmonary edema. There is no evidence for free air. Gas throughout small and large bowel is present. There is no evidence for a bowel obstruction. There is a moderate to large amount of stool within the colon and rectum. IMPRESSION: 1. No free air or evidence for a bowel obstruction. 2. Moderate to large amount of stool within the colon and rectum. 3. No acute cardiopulmonary findings. ACT 112: Negative or not required by law. Electronically signed by: Tony Bryan M.D. 04/29/2023 4:52 PM Abdomen/Pelvis CT 04/29/23 18:22 Exam(s): CT ABDOMEN + PELVIS Without Contrast EXAM: CT Abdomen and Pelvis Without Intravenous Contrast CLINICAL HISTORY: Reason for exam: hematuria. TECHNIQUE: Axial computed tomography images of the abdomen and pelvis without intravenous contrast. Automated exposure control was utilized for the study. A dose lowering technique was utilized adhering to the principles of ALARA. COMPARISON: 12/07/2022. FINDINGS: Lung bases: Bilateral lower lobe atelectasis. Pleural space: Mild left-sided pleural effusion. Heart: Unremarkable. No cardiomegaly. No significant pericardial effusion. Normal cardiac size with coronary artery calcifications. ABDOMEN: Liver: Unremarkable. Gallbladder and bile ducts: Unremarkable. No calcified stones. No ductal dilation. Pancreas: Unremarkable. No ductal dilation. Spleen: Unremarkable. No splenomegaly. Adrenals: Unremarkable. No mass. Kidneys and ureters: Severe bilateral hydronephrosis and hydroureter. There is severe left perinephric and ureteral stranding. There is no stone along the trajectory of bilateral ureters. Stomach and bowel: There is increased fecal debris within the colon with areas of mild gaseous distention suggestive of constipation. The stomach is decompressed. Mild scattered diverticulosis with no signs of diverticulitis. PELVIS: Appendix: No findings to suggest acute appendicitis. Bladder: High density along the posterior urinary bladder wall suggestive of blood clots. No stones. Reproductive: There is prostate enlargement with soft tissue density along the posterior lateral urinary bladder wall, cannot exclude prostate versus urinary bladder neoplasm. ABDOMEN and PELVIS: Intraperitoneal space: Unremarkable. No free air. No significant fluid collection. Bones/joints: Degenerative disease of the spine, bilateral SI joints and hips. No acute fracture. No dislocation. Soft tissues: Unremarkable. Vasculature: Calcified atherosclerotic disease throughout the aorta with no aneurysm. Lymph nodes: Unremarkable. No enlarged lymph nodes. IMPRESSION: 1. Severe bilateral hydronephrosis and hydroureter, more severe on the left compared to the right . Significant perinephric and ureteral stranding on the left suggestive of urinary backflow otherwise no stone along the trajectory of the bilateral ureters. In the context of prostate enlargement with thickening of the posterolateral urinary bladder wall, cannot exclude neoplasm. Likely posterior urinary bladder blood clot. Clinical correlation recommended and urological consultation recommended. 2. Constipation. No bowel obstruction. 3. Mild left pleural effusion with bilateral lower lobe atelectasis. Electronically signed by: Sommer Acosta MD 04/30/23 00:10 AM Code Status & VTE Plan Code Status Full code VTE Prophylaxis Plan VTE Prophylaxis will be ordered: Yes PG Care Time/CCT Total # of Minutes Spent Total Time Spent with Patient: Total time spent is greater than 50% in coordination of care (as documented) at patient's floor/unit and/or counseling patient: Coding Level of Care Code 31207 INT INP/OBS CARE 3/75MIN Diagnoses Bilateral hydronephrosis N13.30 BPH loc w urin obs/LUTS N40.1 GYPSY (acute kidney injury) N17.9 Hematuria R31.9 Myositis of both thighs M60.9
[2023-04-30] MEDS: TAMSULOSIN HCL 0.4 MG CAP PO STA (01:28)
[2023-04-30] MEDS ORDERED: ONDANSETRON INJ 2 MG/ML 2 ML VIAL IV PRN (02:51)
[2023-04-30] MEDS: HYDROCORTISONE SOD 50 MG in SYRINGE 0 ML IV SCH (03:13)
--- OUTSIDE RECORDS SUMMARY | 2023-04-30 05:03 | External Medical Summary | Continuity of Care Document ---
Author Name Unknown Organization [facility] [address] [facility] [address] [id number] Care Team Providers Care Forestry Pilot Name Role Phone Akil Ordoñez Primary Care Physician [phone] [id number] Date(s): 04/26/23 - 04/26/23 [facility] [address] [facility] [address] [id number] Encounter Diagnosis Bullous pemphigoid(Discharge Diagnosis) - 04/26/23 Long-term use of high-risk medication(Discharge Diagnosis) - 04/26/23 Discharge Disposition: Home or Self Care Attending Physician: MD Cabrera Sara B Allergies, Adverse Reactions, Alerts No Known Medication Allergies Substance Reaction Severity Status Pollen watery eyes Active Assessment and Plan Extracted from: Title:Office Visit Note Author:MD Rick, Boyd Soliman Date:04/26/23 1.Bullous pemphigoid Chronic, at goal. We discussed we cannot continue on that dose of prednisone. I initially recommended a slower taper at 17.5 15, 12.5 and 10. The patient has some dementia and memory issues his is with him but she did not feel that that taper wasdoable for her. This was even after it was written out. Therefore we elected to go with15 mg daily for 2 weeksthen 10 mg daily for 2 weeks until he comes back. He knows not to stop the prednisone completely. I recommended topical steroid if anything flares up twice a dayand to call me if that is the case. He will also continue on the doxycycline. 2.Long-term use of high-risk medication Risks and benefits of prednisone reviewed. They understand why we are tapering it. Call with any issues. I will see him back in about 4 to 5 weeks. Medications Albuterol (Eqv-ProAir HFA) 90 mcg/inh inhalation aerosol INHALE 2 PUFFS BY MOUTH EVERY 6 HOURS NEEDED FOR SHORTNESS OF BREATH OR WHEEZING Start Date: 12/30/22 Status: Ordered clopidogrel 75 mg oral tablet Start: 04/12/23 13:50:00 EST, 1 tab, PO, Daily Start Date: 04/12/23 Status: Ordered doxycycline hyclate 100 mg oral capsule Start: 03/25/23 10:47:00 EST, 1 cap, PO, bid, Disp# 180 cap, Refills: 1, may take with food to minimize abdominal discomfort, Pharmacy: [id number] Start Date: 03/25/23 Stop Date: 09/21/23 Status: Ordered dutasteride 0.5 mg oral capsule TAKE 1 CAPSULE BY MOUTH IN THE MORNING Start Date: 12/30/22 Status: Ordered pravastatin 10 mg oral tablet TAKE 1 TABLET BY MOUTH ONCE DAILY Start Date: 03/04/22 Status: Ordered predniSONE 5 mg oral tablet Start: 03/25/23 10:51:00 EST, 1 tab, PO, Daily, Disp# 100 tab, take as directed, Pharmacy: [id number] Start Date: 03/25/23 Status: Ordered tamsulosin 0.4 mg oral capsule Start: 03/10/23 11:34:00 EST, 1 cap, PO, Daily Start Date: 03/10/23 Status: Ordered triamcinolone 0.1% topical cream Start: 03/10/23 11:55:00 EST, 1 appl, topical, bid, Disp# 454 g, Refills: 2, To rash BID, Pharmacy:[id number] Start Date: 03/10/23 Status: Ordered Mental Status 04/26/23 Barriers to Learning one year None evide nt Mandatory Health Literacy Documentation Yes Health Literacy Communication Barriers N ever Primary Language Divehi Problem List Condition Confirmation Course Effective Dates Status H ealth Status Informant Popliteal artery aneurysm Confirmed Active Multiple nevi Confirmed Active Bullous pemphigoid Confirmed Active Changing skin lesion Confirmed Active Darier's disease Confirmed Active Dysplastic nevus Confirmed Active 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 H/O Malignant melanoma Confirmed Active Long-term use of high-risk medication Confirmed Active Angioma Confirmed Active History of basal cell carcinoma of skin Confirmed Active Hyperlipidemia Confirmed Active Melanocytic nevus Confirmed Active Melanoma Confirmed Active Neck stiffness Confirmed Active Seborrheic keratoses Confirmed Active Senile hyperkeratosis Confirmed Active Verruca vulgaris Confirmed Active Diagnosis Diagnosis Type Effective Dates Health Status Clinical Service Informant Bullous pemphigoid Discharge Diagnosis 04/26/23 Long-term use of high-risk medication Discharge Diagnosis 04/26/23 Procedures Procedure Date Related Diagnosis Body Site Status Chest X-ray 1 03/18/23 Completed Endovascular repair of aneur ysm with graft of right popliteal artery 01/27/23 Completed Excision 03/04/22 Completed Shave biopsy 2 01/21/22 Completed Punch biopsy 3 01/03/19 Completed Shave biopsy and cauterisation of skin 12/07/18 Completed Shave biopsy and cauterizati on of skin 4 10/13/18 Completed Shave biopsy and cauterizati on of skin 5 01/10/14 Completed Shave biopsy 07/17/13 Completed excision 06/29/12 Completed Shave biopsy of skin 06/06/12 Comp leted Cataract Completed 1Findings Cardiomediastinal and hilar silhouettes are within normal limits. No pneumothorax, pleuraleffusion or airspace consolidation, Hyperinflation with diaphragmatic flattening. The bones of the chest appear grossly intact. Impression: No ACute Process. 2left prox jawline 3left lower leg 4with ED&C 5left achilles Social History Social History Type Response Smoking Status Never smoked cigaret minerva Sex Male Dermatology Outpatient Note * MD Rick, Darby Soliman: PERFORM Event Display: Dermatology Outpt Note Authored Date: Chief Complaint 4 week f/u bullous pemphigoid. Improved. History of Present Illness Patient follows up with bullous pemphigoid. Patient is now taking doxycycline 100 mg twice a day with food and prednisone 20 mg daily with food. He has not used any topicals as his skin has been clear and he has not been itchy. Physical Exam Exam of chest back abdomen upper extremities bilaterally hands as well as lower ankle areas. He has no active bullous pemphigoid today Assessment/Plan 1.Bullous pemphigoid Chronic, at goal. We discussed we cannot continue on that dose of prednisone. I initially recommended a slower taper at 17.5 15, 12.5 and 10. The patient has some dementia and memory issues hiswife is with him but she did not feel that that taper wasdoable for her. This was even after itwas written out. Therefore we elected to go with15 mg daily for 2 weeksthen 10 mg daily for 2weeks until he comes back. He knows not to stop the prednisone completely. I recommended topical steroid if anything flares up twice a dayand to call me if that is the case. He will also continue on the doxycycline. 2.Long-term use of high-risk medication Risks and benefits of prednisone reviewed. They understand why we are tapering it. Call with any issues. I will see him back in about 4 to 5 weeks. Problem List/Past Medical History Ongoing Angioma Atypical nevus Bullous pemphigoid Changing skin lesion Darier's disease Darier-White disease Dysplastic nevus H/O Malignant melanoma History of basal cell carcinoma of skin Hyperlipidemia Long-term use of high-risk medication Melanocytic nevus Melanoma Multiple nevi Neck stiffness Popliteal artery aneurysm Seborrheic keratoses Senile hyperkeratosis Verruca vulgaris Procedure/Surgical History Chest X-ray (03/18/2023)Endovascular repair of aneurysm with graft of right popliteal artery (01/27/2023)Excision (03/04/2022)Shave biopsy (01/21/2022)Punch biopsy (01/03/2019)Shavebiopsy and cauterisation of skin (12/07/2018)Shave biopsy and cauterization of skin (10/13/2018)Shave biopsy and cauterization of skin (01/10/2014)Shave biopsy (07/17/2013)excision (06/29/2012)Shave biopsy of skin (06/06/2012)Cataract Medications albuterol(Albuterol (Eqv-ProAir HFA) 90 mcg/inh inhalation aerosol) clopidogrel(clopidogrel 75 mg oral tablet), 75 mg= 1 tab, PO, Daily doxycycline(doxycycline hyclate 100 mg oral capsule), 100 mg= 1 cap, PO, bid, 1 refills dutasteride(dutasteride 0.5 mg oral capsule) pravastatin(pravastatin 10 mg oral tablet) predniSONE(predniSONE 5 mg oral tablet), 5 mg= 1 tab, PO, Daily tamSULOsin(tamsulosin 0.4 mg oral capsule), 0.4 mg= 1 cap, PO, Daily triamcinolone topical(triamcinolone 0.1% topical cream), 1 appl, topical, bid, 2 refills Allergies No Known Medication Allergies Pollenwatery eyes Social History Smoking Status Never smoked cigarettes Recommendations Health Maintenance Pending(in the next year) OverDue Adult Influenza Vaccine due09/18/22and every 1year Due Adult COVID-19 Vaccination due04/26/23Unknown Frequency Adult Social Determinants of Health Screening due04/26/23Unknown Frequency Adult Tdap/Td Vaccine due04/26/23Unknown Frequency Body Mass Index due04/26/23Unknown Frequency Medicare Annual Wellness Visit due04/26/23and every 1year Pneumococcal Vaccine Older Adults due04/26/23One-time only Shingles Vaccine due04/26/23One-time only Satisfied(in the past 1 year) There are no satisfied recommendations within the defined date range Electronic Signature on File Electronically Reviewed/Signed by: Darby Cabrera MD Author Signature Dt/Tm:04/26/2023 01:24 PM Department of Dermatology [facility] Patient Care team information Care Team Personnel Name: BRANDI Pa Lynn Position: Physician [employer] 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
--- OUTSIDE RECORDS SUMMARY | 2023-04-30 05:03 | External Medical Summary | Continuity of Care Document ---
Author Name Unknown Organization [facility] [address] Address [address] [place], [place] [id number] Care Team Providers Care Protection Officer Name Role Phone Akil Ordoñez Primary Care Physician [phone] Encounter [facility] [id number] Date(s): 04/12/23 - 04/12/23 [facility] [address], [facility] [address] [place] [address] [phone] Encounter Diagnosis Popliteal artery aneurysm(Discharge Diagnosis) - 04/12/23 Discharge Disposition: Home or Self Care Attending Physician: MD Estuardo, Romeo Melgoza Referring Physician: MD Ordoñez Jeffrey W Allergies, Adverse Reactions, Alerts No Known Medication Allergies Substance Reaction Severity Status Pollen watery eyes Active Assessment and Plan Extracted from: Title:Clinical Document Author:BRANDI Pa Lynn Date:04/12/23 [facility] OUTPATIENT NOTE Name: Reginald DAVIS Jr. Patient Number: [id number] : 1935 Date of Service: 04/12/2023 Chief Complaint: _Follow-up for popliteal artery aneurysm HPI: _Mr. Davis is an elderly male presents to Dr. Marte's vascular surgery clinic today for a follow-up visit regarding his right popliteal artery aneurysm endovascular repair which occurred on 01/27/2023. His procedure was essentially uncomplicated and that he has done well postoperatively. Patient has no complaints or concerns relating to his right leg or his left groin puncture site. He is ambulating well without any problems. Specifically he denies claudication, rest pain, nonhealing wounds or ulcerations. Imaging: Patient did undergo a right leg arterial ultrasound to evaluate his popliteal artery covered stent which demonstrates a widely patent endovascular popliteal artery aneurysm repair with a residual aneurysm sac measuring 3.2 cm. Current Home Meds: (Last Updated 04/12 13:52) albuterol (Albuterol (Eqv-ProAir HFA) 90 mcg/inh inhalation aerosol) INHALE 2 PUFFS BY MOUTH EVERY 6 HOURS NEEDED FOR SHORTNESS OF BREATH OR WHEEZING clopidogrel (clopidogrel 75 mg oral tablet) 75 mg PO Daily doxycycline (doxycycline hyclate 100 mg oral capsule) 100 mg PO bid may take with food to minimize abdominal discomfort dutasteride (dutasteride 0.5 mg oral capsule) TAKE 1 CAPSULE BY MOUTH IN THE MORNING pravastatin (pravastatin 10 mg oral tablet) TAKE 1 TABLET BY MOUTH ONCE DAILY predniSONE (predniSONE 20 mg oral tablet) 20 mg PO Daily 2 tabs ( 40 mg) every day with breakfast predniSONE (predniSONE 5 mg oral tablet) 5 mg PO Daily take as directed tamSULOsin (tamsulosin 0.4 mg oral capsule) 0.4 mg PO Daily triamcinolone topical (triamcinolone 0.1% topical cream) 1 appl topical bid To rash BID Allergies and Sensitivities: No Known Medication Allergies Pollen(watery eyes) Past Medical History: Problems: Long-term use of high-risk medication Seborrheic keratoses Bullous pemphigoid Popliteal artery aneurysm Angioma Multiple nevi History of basal cell carcinoma of skin Changing skin lesion Darier-White disease Atypical nevus Hyperlipidemia Melanoma Neck stiffness Dysplastic nevus Senile hyperkeratosis Verruca vulgaris H/O Malignant melanoma Darier's disease Melanocytic nevus OBJECTIVE Vitals: Last Updated 04/12/23 13:49 Date Temp BP Location Pulse RR SpO2 Pain 04/12/23 156/74 85 96 03/25/23 0 03/10/23 0 Vital Signs are the last 3 documented. No Orthostatic Data Available Height and Weight: Last Updated 12/30/22 08:44 Date BMI Wt(kg) Wt(lb) Method Ht(cm) (ft-in) Method 12/30/22 61.1 134 Standing Scale Heights and Weights are the last 3 documented. Physical Exam Constitutional: In general patient is a healthy-appearing well-nourished well-developed elderly male no distress. He is alert and oriented without any focal deficits. His heart is regular, his lungs are decreased but clear. His abdomen soft nontender with normoactive bowel sounds in all 4 quadrants. His femoral puncture sites is well-healed. His femoral pulses are +3. His left lower extremity distal pulses are +1, his right lower extremity distal pulses are +1. He has brisk capillary fill and no sign of distal ischemia. 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 Previous imaging had demonstrated no aneurysmal disease in the left lower extremity, and an infrarenal aorta measuring 2.4 cm. His right endovascular popliteal artery aneurysm repair looks well on ultrasound and will require surveillance imaging in 6 months with ultrasound. 2 ) _peripheral arterial disease Patient does have peripheral arterial disease on ultrasound, and this will be reevaluated when he returns in 6 months. Patient is advised to call any questions or concerns if they should occur prior to then. He is agreeable to this plan. His was also present today. Thank you for letting us participate in the care of this patient. I have personally spent_21__ minutes performing [id number] and jin-oucb-tv-face activities on this date of service.Time does not include separately reported services. Activities Include: x__ review of the medical record _x_ obtaining a history _x_ physical exam/evaluation __ review labs _x_ review radiology reports _x_ counseling/educating patient/family/caregiver __ discussion/referral to other healthcare professional _x_ documenting care in the medical record __ independent interpretation of results x__ communication of results to patient/family/caregiver _x_ coordination of care Medications Albuterol (Eqv-ProAir HFA) 90 mcg/inh inhalation [...] cap, PO, bid, Disp# 180 cap, Refills: , july take with food to minimize abdominal discomfort, Pharmacy: [id number] Start Date: 03/25/23 Stop Date: 09/21/23 Status: Ordered dutasteride 0.5 mg oral capsule TAKE 1 CAPSULE BY MOUTH IN THE MORNING Start Date: 12/30/22 Status: Ordered pravastatin 10 mg oral tablet TAKE 1 TABLET BY MOUTH ONCE DAILY Start Date: 03/04/22 Status: Ordered predniSONE 20 mg oral tablet Start: 03/10/23 11:53:00 EST, 1 tab, PO, Daily, Disp# 100 tab, 2 tabs ( 40 mg) every day with breakfast, Pharmacy: [id number] Start Date: 03/10/23 Status: Ordered predniSONE 5 mg oral tablet Start: 03/25/23 10:51:00 EST, 1 tab, PO, Daily, Disp# 100 tab, take as directed, Pharmacy: [id number] Start Date: 03/25/23 Status: Ordered tamsulosin 0.4 mg oral capsule Start: 03/10/23 11:34:00 EST, 1 cap, PO, Daily Start Date: 03/10/23 Status: Ordered triamcinolone 0.1% topical cream Start: 03/10/23 11:55:00 EST, 1 appl, topical, bid, Disp# 454 g, Refills: 2, To rash BID, Pharmacy:[id number] Start Date: 03/10/23 Status: Ordered Problem List Condition Confirmation Course Effective Dates [...] Service Informant Popliteal artery aneurysm Discharge Diagnosis 04/12/23 Procedures Procedure Date Related Diagnosis Body Site [...] 3left lower leg 4with ED&C 5left achilles Vital Signs Most recent to oldest [Reference Range]: 1 Heart Rate 85 bpm (04/12/23 1:49 PM) Blood Pressure 156/74mmHg (04/12/23 1:49 PM) Cuff Pulse Pressure 82 mmHg (04/12/23 1:49 PM) Social History Social History Type Response Smoking Status Never smoked cigaret minerva Sex Male [facility] Outpt Note * BRANDI Pa Lynn: PERFORM Event Display: [facility] Outpt Note Authored Date: [id number] [facility] OUTPATIENT NOTE Name: Reginald DAVIS Jr. Patient Number: [id number] : 1935 Date of Service: 04/12/2023 Chief Complaint: _Follow-up for popliteal artery aneurysm HPI: _Mr. Davis is an elderly male presents to Dr. [facility] vascular surgery clinic today for a follow-up visit regarding his right popliteal artery aneurysm endovascular repair which occurred on 01/27/2023. His procedure was essentially uncomplicated and that he has done well postoperatively. Patient has no complaints or concerns relating to his right leg or his left groin puncture site. He is ambulating well without any problems. Specifically he denies claudication, rest pain, nonhealing wounds or ulcerations. Imaging: Patient did undergo a right leg arterial ultrasound to evaluate his popliteal artery covered stent which demonstrates a widely patent endovascular popliteal artery aneurysm repair with a residual aneurysm sac measuring 3.2 cm. Current Home Meds: (Last Updated 04/12 13:52) albuterol (Albuterol (Eqv-ProAir HFA) 90 mcg/inh inhalation aerosol) INHALE 2 PUFFS BY MOUTH EVERY 6 HOURS NEEDED FOR SHORTNESS OF BREATH OR WHEEZING clopidogrel (clopidogrel 75 mg oral tablet) 75 mg PO Daily doxycycline (doxycycline hyclate 100 mg oral capsule) 100 mg PO bid may take with food to minimizeabdominal discomfort dutasteride (dutasteride 0.5 mg oral capsule) TAKE 1 CAPSULE BY MOUTH IN THE MORNING pravastatin (pravastatin 10 mg oral tablet) TAKE 1 TABLET BY MOUTH ONCE DAILY predniSONE (predniSONE 20 mg oral tablet) 20 mg PO Daily 2 tabs ( 40 mg) every day with breakfast predniSONE (predniSONE 5 mg oral tablet) 5 mg PO Daily take as directed tamSULOsin (tamsulosin 0.4 mg oral capsule) 0.4 mg PO Daily triamcinolone topical (triamcinolone 0.1% topical cream) 1 appl topical bid To rash BID Allergies and Sensitivities: No Known Medication Allergies Pollen(watery eyes) Past Medical History: Problems: Long-term use of high-risk medication Seborrheic keratoses Bullous pemphigoid Popliteal artery aneurysm Angioma Multiple nevi History of basal cell carcinoma of skin Changing skin lesion Darier-White disease Atypical nevus Hyperlipidemia Melanoma Neck stiffness Dysplastic nevus Senile hyperkeratosis Verruca vulgaris H/O Malignant melanoma Darier's disease Melanocytic nevus OBJECTIVE Vitals: Last Updated 04/12/23 13:49 Date Temp BP Location Pulse RR SpO2 Pain 04/12/23 156/74 85 96 03/25/23 0 03/10/23 0 Vital Signs are the last 3 documented. No Orthostatic Data Available Height and Weight: Last Updated 12/30/22 08:44 Date BMI Wt(kg) Wt(lb) Method Ht(cm) (ft-in) Method 12/30/22 61.1 134 Standing Scale Heights and Weights are the last 3 documented. Physical Exam Constitutional: In general patient is a healthy-appearing well-nourished well- developed elderly male no distress. He is alert and oriented without any focal deficits. His heart is regular, his lungs are decreased but clear. His abdomen soft nontender with normoactive bowel sounds in all 4 quadrants. His femoral puncture sites is well-healed. His femoral pulses are +3. His left lower extremity distal pulses are +1, his right lower extremity distal pulses are +1. He has brisk capillary fill and no sign of distal ischemia. 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 Previous imaging had demonstrated no aneurysmal disease in the left lower extremity, and an infrarenal aorta measuring 2.4 cm. His right endovascular popliteal artery aneurysm repair looks well on ultrasound and will require surveillance imaging in 6 months with ultrasound. 2 ) _peripheral arterial disease Patient does have peripheral arterial disease on ultrasound, and this will be reevaluated when he returns in 6 months. Patient is advised to call any questions or concerns if they should occur prior to then. He is agreeable to this plan. His was also present today. Thank you for letting us participate in the care of this patient. I have personally spent_21__ minutes performing [id number] and txs-mmnb-oe-face activities on this date of service.Time does not include separately reported services. Activities Include: x__ review of the medical record _x_ obtaining a history _x_ physical exam/evaluation __ review labs _x_ review radiology reports _x_ counseling/educating patient/family/caregiver __ discussion/referral to other healthcare professional _x_ documenting care in the medical record __ independent interpretation of results x__ communication of results to patient/family/caregiver _x_ coordination of care Electronic Signature on File CC: Akil Ordoñez MD [facility] [address] [place] [id number] * Electronically Reviewed/Signed by: Faby Pa PA-C Author Signature Dt/Tm:04/12/2023 03:55 PM [facility] [place] [address] [place] Patient Care team information Care Team Personnel Name: BRANDI Pa Lynn Position: Physician Chief Architect Exempt - Vasc Surg Member Role: Lifetime Relationship Address: Address: [address] [place] [id number] [place] Name: MD Ordoñez Jeffrey W Position: Referring DIRECT Member Role: Primary Care Provider Address: Address: [facility] [address] [place] [id number] [place] Care Team Related Persons Name: ASHLIE DAVIS Address: home [address] [place] [phone]
[2023-04-30] MEDS ORDERED: Nursing to Pharmacy Communication SCH (05:45)
[2023-04-30 07:33] LABS: Basophils # (auto) 0.01 K/uL (0.00-0.20); Basophils % (auto) 0.1 %; Eosinophils # (auto) 0.01 K/uL (0.00-0.50); Eosinophils % (auto) 0.1 %; Hemoglobin 11.3 g/dl (14.0-18.0); Immature Granulocytes # (auto) 0.05 K/uL (0.01-0.20); Immature Granulocytes % (auto) 0.5 %; Lymphocytes # (auto) 0.69 K/uL (1.20-3.40); Lymphocytes % (auto) 6.8 %; Mean Corpuscular Hemoglobin 30.3 pg (25.0-34.0); Mean Corpuscular Hgb Conc 34.2 g/dL (32.0-36.0); Mean Corpuscular Volume 88.5 fL (80.0-100.0); Mean Platelet Volume 9.7 fL (9.4-12.4); Monocytes # (auto) 0.44 K/uL (0.11-0.59); Monocytes % (auto) 4.4 %; Neutrophils # (auto) 8.91 K/uL (1.40-6.50); Neutrophils % (auto) 88.1 %; Platelet Count 210 K/uL (130-400); RDW Coefficient of Variation 15.1 % (11.5-14.5); RDW Standard Deviation 49.6 fL (36.4-46.3); Red Blood Count 3.73 M/uL (4.70-6.10); White Blood Count 10.11 K/ul (4.8-10.8)
[2023-04-30 07:46] LABS: Albumin Level 3.1 gm/dl (3.4-5.0); BUN Creatinine Ratio 23.4 (10-20); Calcium 8.4 mg/dl (8.6-10.3); Creatinine Clr Calc Pharmacy 15.4 ml/min; Est GFR (African American) 23.6 ml/min; Est GFR (Non-African American) 20.4 ml/min; Potassium 3.8 mmol/L (3.5-5.1)
--- NOTE | 2023-04-30 08:07 | Communication Note ---
Date of Service: April 30, 2023 Admitted this am by my colleague 88 y/o with BPH and hematuria admitted with GYPSY due to bladder outlet obstruction with severe bilateral hydronephrosis and hydroureter as well as probably posterolateral bladder wall clot (cannot exclude neoplasm) on CT. Previously had negative office cystoscopy and CT 04/30/22. Normally takes tamsulosin, dutasteride, plavix. Has been constipated x 2 weeks. Rucker placed in ED, urologist Dt. Mc consulted, flomax increased to 0.8 mg and plavix was held. Started on ceftriaxone for possible UTI. Seen with his at bedside. Awake/alert, seems confused which may be baseline, CTAB heart reg abd s/nt/nd, rucker draining brownish scotty urine with sediment, LE wwp no edema GYPSY possibly with ATN, postobstructive cause - Cr slightly improved, potassium 3.8, continue rucker and IVF and monitor UOP, AM BMP Hematuria - rucker, plavix held. BPH/PATEL - tamsulosin increased to 0.8, continue dutasteride, rucker, urology follow up Possible UTI - continue ceftriaxone pending urine culture Constipation - started bid miralax and PRN's, contributes to urinary retention PAD - has hx (RLE?) stent, resume plavix in AM if no further hematuria
[2023-04-30] MEDS: POLYETHYLENE (MIRALAX) 17 GM PACK PO SCH (08:21)
[2023-04-30] MEDS: FINASTERIDE 5 MG TAB PO SCH (09:17)
[2023-04-30] MEDS: SENNA 8.6 MG TAB PO PRN (09:17)
--- NOTE | 2023-04-30 10:38 | Urology Progress Note ---
Date of Service April 30, 2023 Assessment & Plan (1) Hematuria: (2) GYPSY (acute kidney injury): (3) Hydronephrosis: (4) Urinary retention: Plan Afebrile and hemodynamically stable Labs today show no leukocytosis, hemoglobin 11.3, creatinine downtrending 2.80-2.69 today. Continue to trend. Urine culture pending. On Ceftriaxone. CT abd pelvis reviewed- Severe bilateral hydronephrosis/hydroureter and thickening of the posterolateral bladder wall also noted to be likely blood clot but could not exclude neoplasm. Patient did have a negative office cystoscopy 04/30/22. Most recent PSA was 1.5 which is also reassuring. No plan for urological intervention. Hematuria appears to have cleared. López draining appropriatelyurine is clear yellow with some sediment. Continue to monitor. Okay to gently hand irrigate as needed for clots, retention, suprapubic pain. Continue supportive care. Continue antibiotics and tailor as culture data comes available. Continue Flomax and Finasteride. Maintain López catheter for maximum decompression and hopefully kidney function will continue to improve as well. Anticoagulation on hold per primary team. Can likely resume tomorrow if urine remains clear. Urology will follow along. Admission and Anticipated Discharge Date Admission Date: April 30, 2023 Subjective Patient examined at bedside this AM. Awake, resting in bed on arrival. No acute distress. López intact and draining yellow urine with some sediment noted in tubing. He denies any pain or discomfort at present. Denies f/c/n/v. Review of Systems Constitutional: as per Subjective / HPI Genitourinary: + as per Subjective / HPI Physical Exam Constitutional: no acute distress Respiratory: no respiratory distress and no labored breathing Gastrointestinal (Abdomen): Percussion/Palpation: abdomen soft; abdomen nontender Neurologic: awake Psychiatric: Orientation: alert and cooperative Genitourinary: López intact Results & Data Vital Signs (Past 12 Hours) Vital Signs Temp Pulse Resp BP Pulse Ox O2 Del Method 04/30/23 07:18 36.5 C 84 18 167/81 H 98 Room Air 04/30/23 02:51 Room Air 04/30/23 02:51 36.8 C 81 18 165/85 H 97 Room Air 04/30/23 01:00 78 18 176/94 H 98 Room Air 04/29/23 23:00 87 18 168/90 H 98 Room Air PG Care Time/CCT Total # of Minutes Spent Total Time Spent with Patient: Total time spent is greater than 50% in coordination of care (as documented) at patient's floor/unit and/or counseling patient: Coding Level of Care Code None Diagnoses Hematuria R31.9 GYPSY (acute kidney injury) N17.9 Hydronephrosis N13.30 Hydronephrosis type: unspecified Urinary retention R33.9 (3) Hydronephrosis Hydronephrosis type: unspecified Qualified Code(s): N13.30 - Unspecified hydronephrosis
[2023-04-30] MEDS: bisacodyL 10 MG SUPP PR PRN (13:51)
[2023-04-30] MEDS: TAMSULOSIN HCL 0.4 MG CAP PO SCH (20:37)
[2023-04-30] MEDS: cefTRIAXone SODIUM 2,000 MG in DEXTROSE 5 % MINI-B 50 ML IV SCH (20:39)
[2023-05-01 06:51] LABS: Basophils # (auto) 0.01 K/uL (0.00-0.20); Basophils % (auto) 0.1 %; Hematocrit (blood only) 28.1 % (42.0-52.0); Hemoglobin 10.1 g/dl (14.0-18.0); Immature Granulocytes # (auto) 0.04 K/uL (0.01-0.20); Immature Granulocytes % (auto) 0.4 %; Lymphocytes % (auto) 5.6 %; Mean Corpuscular Hemoglobin 30.9 pg (25.0-34.0); Mean Corpuscular Hgb Conc 35.9 g/dL (32.0-36.0); Mean Corpuscular Volume 85.9 fL (80.0-100.0); Mean Platelet Volume 9.7 fL (9.4-12.4); Monocytes # (auto) 0.45 K/uL (0.11-0.59); Monocytes % (auto) 4.2 %; Neutrophils # (auto) 9.65 K/uL (1.40-6.50); Neutrophils % (auto) 89.7 %; Platelet Count 205 K/uL (130-400); RDW Standard Deviation 47.8 fL (36.4-46.3); Red Blood Count 3.27 M/uL (4.70-6.10); White Blood Count 10.75 K/ul (4.8-10.8)
[2023-05-01 07:30] LABS: Albumin Level 2.8 gm/dl (3.4-5.0); BUN Creatinine Ratio 24.3 (10-20); Calcium 7.8 mg/dl (8.6-10.3); Creatinine Clr Calc Pharmacy 16.2 ml/min; Est GFR (African American) 25.2 ml/min; Est GFR (Non-African American) 21.7 ml/min; Phosphorus 5.1 mg/dl (2.5-4.9); Potassium 3.7 mmol/L (3.5-5.1)
[2023-05-01] MEDS: predniSONE 20 MG TAB PO SCH (08:51)
--- NOTE | 2023-05-01 09:13 | Urology Progress Note ---
Date of Service May 01, 2023 Assessment & Plan (1) Bilateral hydronephrosis: (2) BPH loc w urin obs/LUTS: Plan Bilateral hydronephrosis with GYPSY in the setting of suspected bladder outlet obstruction Is a López catheter in place, however has not had a full correction of his kidney function yet I suspect with age and likely the duration that has been experiencing symptoms this may take some time to resolve Will continue to monitor as he has had good urine output He is already on tamsulosin and dutasteride so no additional medication management for the bladder outlet obstruction May have to consider surgical procedure in the future presuming he has good resolution of the GYPSY with time and catheterization Alternatively could consider long-term catheter Admission and Anticipated Discharge Date Admission Date: April 30, 2023 Subjective Subjectively reports that he feels relatively well today Tolerating his catheter very well He had clearing of his urine and relatively good output Unfortunately his creatinine has not yet adjusted significantly Physical Exam Constitutional: well developed and well nourished Respiratory: no respiratory distress Cardiovascular: Extremities: no pedal edema Gastrointestinal (Abdomen): Inspection/Auscultation: abdomen normal to inspection Results & Data Vital Signs (Past 12 Hours) Vital Signs Temp Pulse Resp BP Pulse Ox O2 Del Method 05/01/23 07:47 36.7 C 99 H 16 167/84 H 95 Room Air 05/01/23 07:20 Room Air 05/01/23 02:20 Room Air PG Care Time/CCT Total # of Minutes Spent Total Time Spent with Patient: Total time spent is greater than 50% in coordination of care (as documented) at patient's floor/unit and/or counseling patient: Coding Level of Care Code 51262 SUB INP/OBS CARE 2/35MIN Diagnoses Bilateral hydronephrosis N13.30 BPH loc w urin obs/LUTS N40.1
[2023-05-01 11:55] LABS: Creatinine Urine Random 84.8 mg/dl
--- NOTE | 2023-05-01 15:37 | XRay Report ---
KUB CLINICAL HISTORY: Abdominal distention. Constipation. FINDINGS: 2 AP, portable, supine abdominal radiographs are compared to abdominal radiographs and CT d ated 04/29/2023. There is moderate to severe constipation. There is gaseous distention of the small bow el and colon with no radiographic evidence of high-grade obstruction. No evidence of intraperitoneal free air is seen on these supine images. There are no abnormal abdominal calcifications. The skeletal structures are osteopenic and appear intact. There is advanced lumbosacral spondylosis. IMPRESSION: 1. Moderate to severe constipation. 2. There is mild gaseous distention of the small bowel and colon without radiographic evidence of hig h-grade obstruction. Correlate clinically. Electronically signed by: Parag Wheeler M.D. 05/01/2023 3:35 PM
--- NOTE | 2023-05-01 17:26 | Hospitalist Progress Note ---
Date of Service May 01, 2023 Assessment & Plan (1) GYPSY (acute kidney injury): Plan: GYPSY due to bladder outlet obstruction with bilateral hydronephrosis and hydroureter. Suspect ATN, creatinine very slow to improve though urine output has picked up a lot - check urine sodium and urine creatinine for Lucy - continue gentle IV fluids but decrease saline to 75 mL/h - Daily BMP Contnue ceftriaxone pending urine culture - NGTD, UTI seems unlikely (2) Bilateral hydronephrosis: Plan: continue López catheter (3) BPH loc w urin obs/LUTS: Plan: continue López catheter, tamsulosin increased to 0.8 this admission, continue dutasteride - follow-up with urology likely to need eventual procedure or long-term catheter - possible bladder wall clot but cannot rule out tumor based on imaging - discussed this with his family (4) Hematuria: Plan: related to bladder outlet obstruction setting of Plavix, resolved possible bladder wall clot resume plavix in AM (5) Myositis of both thighs: Plan: 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 at bedside and son in law. Still has not had BM - now distended, eating poorly. No emesis. Physical Exam 2 Physical Exam: PHYSICAL EXAMINATION Last 24h vital signs reviewed, see documentation in flowsheet General: comfortable appearing, no distress HEENT: Normocephalic, atraumatic, pupils round and equal, sclerae anicteric, no conjunctival injection, moist mucus membranes Lungs: Normal respiratory effort. Clear to auscultation bilaterally. No RRW Heart: Regular rate and rhythm, no murmurs. No JVD Abdomen: Soft, nontender, moderately distended. Bowel sounds present, increased in frequency. Extremities: Warm, dry, well-perfused. No extremity edema. no bullous lesions Neuro: Alert and oriented x self, face symmetric, moves 4 extremities well Psych: Normal affect and behavior Results & Data Results & Data Vital Signs (Past 12 Hours) Vital Signs Temp Pulse Resp BP Pulse Ox O2 Del Method 05/01/23 14:30 36.7 C 90 16 169/79 H 96 Room Air 05/01/23 07:47 36.7 C 99 H 16 167/84 H 95 Room Air 05/01/23 07:20 Room Air Laboratory Results 05/01/23 06:01 05/01/23 06:01 PG Care Time/CCT Total # of Minutes Spent Total Time Spent with Patient: Total time spent is greater than 50% in coordination of care (as documented) at patient's floor/unit and/or counseling patient: Coding Level of Care Code 49138 SUB INP/OBS CARE 2/35MIN Diagnoses GYPSY (acute kidney injury) N17.9 Bilateral hydronephrosis N13.30 BPH loc w urin obs/LUTS N40.1 Hematuria R31.9 Myositis of both thighs M60.9
[2023-05-02 07:23] LABS: Basophils # (auto) 0.01 K/uL (0.00-0.20); Basophils % (auto) 0.1 %; Eosinophils # (auto) 0.05 K/uL (0.00-0.50); Eosinophils % (auto) 0.5 %; Hematocrit (blood only) 32.4 % (42.0-52.0); Hemoglobin 11.4 g/dl (14.0-18.0); Immature Granulocytes # (auto) 0.04 K/uL (0.01-0.20); Immature Granulocytes % (auto) 0.4 %; Lymphocytes % (auto) 14.6 %; Mean Corpuscular Hemoglobin 30.6 pg (25.0-34.0); Mean Corpuscular Hgb Conc 35.2 g/dL (32.0-36.0); Mean Corpuscular Volume 86.9 fL (80.0-100.0); Mean Platelet Volume 9.6 fL (9.4-12.4); Monocytes # (auto) 1.11 K/uL (0.11-0.59); Monocytes % (auto) 10.1 %; Neutrophils # (auto) 8.18 K/uL (1.40-6.50); Neutrophils % (auto) 74.3 %; Platelet Count 222 K/uL (130-400); RDW Coefficient of Variation 15.3 % (11.5-14.5); RDW Standard Deviation 48.6 fL (36.4-46.3); Red Blood Count 3.73 M/uL (4.70-6.10); White Blood Count 10.99 K/ul (4.8-10.8)
[2023-05-02 07:42] LABS: BUN Creatinine Ratio 25.6 (10-20); Calcium 8.3 mg/dl (8.6-10.3); Creatinine Clr Calc Pharmacy 17.1 ml/min; Est GFR (African American) 26.8 ml/min; Est GFR (Non-African American) 23.1 ml/min; Magnesium 2.1 mg/dl (1.7-2.4); Phosphorus 4.4 mg/dl (2.5-4.9); Potassium 3.6 mmol/L (3.5-5.1)
[2023-05-02] MEDS: predniSONE 5 MG TAB PO SCH (08:50)
[2023-05-02] MEDS: MINERAL OIL ENEMA 133 ML BTL PR ONE (09:24)
--- NOTE | 2023-05-02 09:47 | Urology Progress Note ---
Date of Service May 02, 2023 Assessment & Plan (1) Bilateral hydronephrosis: (2) BPH loc w urin obs/LUTS: Plan Bilateral hydronephrosis with presumed bladder outlet obstruction Creatinine very slowly improving This may be a slow/protracted course given his age Leave the catheter in place From a urology standpoint, he does not require consistent hospitalization, will defer on discharge planning to the hospitalist team He will require outpatient follow-up, likely ultrasound and lab work within 1 to 2 weeks Admission and Anticipated Discharge Date Admission Date: April 30, 2023 Subjective A bit somnolent today He denies any significant discomfort Continues to put out good quantities of urine Creatinine very slowly improving He reports that he would very much like to go home Physical Exam Physical Exam: Catheter in position and draining appropriately Results & Data Vital Signs (Past 12 Hours) Vital Signs Temp Pulse Resp BP Pulse Ox O2 Del Method 05/02/23 07:15 36.6 C 102 H 18 148/80 H 94 Room Air 05/01/23 23:19 171/82 H PG Care Time/CCT Total # of Minutes Spent Total Time Spent with Patient: Total time spent is greater than 50% in coordination of care (as documented) at patient's floor/unit and/or counseling patient: Coding Level of Care Code 39523 SUB INP/OBS CARE 2/35MIN Diagnoses Bilateral hydronephrosis N13.30 BPH loc w urin obs/LUTS N40.1
[2023-05-02] MEDS: MAGNESIUM CITRATE 296 ML/BTL PO ONE (16:27)
--- NOTE | 2023-05-02 17:31 | Hospitalist Progress Note ---
Date of Service May 02, 2023 Assessment & Plan (1) GYPSY (acute kidney injury): Plan: GYPSY on CKD-3 due to bladder outlet obstruction with bilateral hydronephrosis and hydroureter. Suspect ATN, creatinine very slow to improve though urine output has picked up a lot, Fena 0.6% however suggest prerenal - continue gentle IV fluids saline 75 mL/h - Daily BMP - Cr very slowly improving day by day - 2.8 on admission, now 2.4. Suspect underlying CKD stage 3 - urine culture negative, stop antibiotics (2) Bilateral hydronephrosis: Plan: continue López catheter (3) BPH loc w urin obs/LUTS: Plan: continue López catheter, tamsulosin increased to 0.8 this admission, continue dutasteride - follow-up with urology likely to need eventual procedure or long-term catheter - possible bladder wall clot but cannot rule out tumor based on imaging - discussed this with his family (4) Hematuria: Plan: related to bladder outlet obstruction setting of Plavix, resolved possible bladder wall clot resume plavix, monitor for recurrent gross hematuria (5) Myositis of both thighs: Plan: 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 on long taper per dermatology, reviewed recent outpatient note -continue prednisone 15 mg daily (current dose per family) Plan Memory loss/metabolic encephalopathy- poor memory at baseline based on family's statements consistent with dementia Continue treatments as above and follow improvements - unchanged last 48h PAD with history of LE stenting procedure - stable -resume plavix PT/OT eval - recommend rehab Lives in split level with 5 reddy with his DVT ppx - SCDs, start chemoppx if tolerates plavix and no hematuria Updated his at bedside 05/01, 05/02 Updated his granddaughter Stephanie by phone 05/02 Admission and Anticipated Discharge Date Admission Date: April 30, 2023 Subjective no abdominal pain or vomiting but still has not moved his bowels urine sediment clearing up a bit, pink tinged Physical Exam 2 Physical Exam: PHYSICAL EXAMINATION Last 24h vital signs reviewed, see documentation in flowsheet General: comfortable appearing, no distress HEENT: Normocephalic, atraumatic, pupils round and equal, sclerae anicteric, no conjunctival injection, moist mucus membranes Lungs: Normal respiratory effort. Clear to auscultation bilaterally. No RRW Heart: Regular rate and rhythm, no murmurs. No JVD Abdomen: Soft, nontender, mildly distended less than yesterday. Bowel sounds present Rectal exam: nonbleeding external hemorrhoids, enlarged prostate nontender, lots of firm stool high up in rectum but too proximal for manual disimpation, stool was brown. Extremities: Warm, dry, well-perfused. No extremity edema. no bullous lesions Neuro: Alert and oriented x self, to basic situation, face symmetric, moves 4 extremities well Psych: Normal affect and behavior Results & Data Results & Data Vital Signs (Past 12 Hours) Vital Signs Temp Pulse Resp BP Pulse Ox O2 Del Method 05/02/23 14:01 36.5 C 114 H 18 150/90 H 95 Room Air 05/02/23 07:15 36.6 C 102 H 18 148/80 H 94 Room Air Laboratory Results 05/02/23 06:41 05/02/23 06:41 PG Care Time/CCT Total # of Minutes Spent Total Time Spent with Patient: Total time spent is greater than 50% in coordination of care (as documented) at patient's floor/unit and/or counseling patient: Coding Level of Care Code 19447 SUB INP/OBS CARE 2/35MIN Diagnoses GYPSY (acute kidney injury) N17.9 Bilateral hydronephrosis N13.30 BPH loc w urin obs/LUTS N40.1 Hematuria R31.9 Myositis of both thighs M60.9
[2023-05-03 07:42] LABS: BUN Creatinine Ratio 24.6 (10-20); Creatinine Clr Calc Pharmacy 16.9 ml/min; Est GFR (African American) 26.6 ml/min; Est GFR (Non-African American) 22.9 ml/min; Potassium 4.1 mmol/L (3.5-5.1)
[2023-05-03] MEDS: CLOPIDOGREL BISULFATE 75 MG TAB PO SCH (07:47)
[2023-05-03] MEDS: MAGNESIUM CITRATE 296 ML/BTL PO STA (07:48)
[2023-05-03] MEDS: ACETAMINOPHEN 325 MG TAB PO PRN (13:02)
--- NOTE | 2023-05-03 17:49 | Hospitalist Progress Note ---
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 Suspect ATN, creatinine very slow to improve though urine output has picked up a lot, Fena 0.6% however suggest prerenal - initially treated with ceftriaxone, urine culture negative, stopped antibiotics - continue gentle IV fluids saline 75 mL/h - Daily BMP - Cr very slowly improving day by day - 2.8 on admission, now 2.4. Suspect underlying CKD stage 3 (2) Constipation by delayed colonic transit: Plan: Severe constipation. reports no BM "for weeks" Is not on / has not been given opioids and has been on IV fluids -CT on admission with constipation, not obstructed -has not responded to bid miralax and senna and daily dulcolax supp for days, enemas 05/01, 05/02 -rectal exam 05/02 by me with firm stool too high up in vault to reach for manual disimpaction -half bottle mag citrate given 05/02, full bottle ordered today but did not drink much of it -hesitate to push more from above because he does develop distention and there is aspiration risk -repeat KUB ordered today - mild distention, constipation, does not appear obstructed (3) Bilateral hydronephrosis: Plan: continue López catheter (4) BPH loc w urin obs/LUTS: Plan: continue López catheter, tamsulosin increased to 0.8 this admission, continue dutasteride - follow-up with urology likely to need eventual procedure or long-term catheter - possible bladder wall clot but cannot rule out tumor based on imaging - discussed this with his family (5) Hematuria: Plan: related to bladder outlet obstruction setting of Plavix, resolved possible bladder wall clot resumed plavix 05/03, monitor for recurrent gross hematuria (6) Myositis of both thighs: Plan: 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 on long taper per dermatology, reviewed recent outpatient note -continue prednisone 15 mg daily (current dose per family) Plan Memory loss/metabolic encephalopathy- poor memory at baseline based on family's statements consistent with dementia Continue treatments as above and follow improvements - unchanged last 48h PAD with history of LE stenting procedure - stable -resume plavix PT/OT eval - recommend rehab Lives in split level with 5 reddy with his DVT ppx - SCDs, start chemoppx if tolerates plavix and no hematuria Updated his at bedside 05/01, 05/02, 05/03 Updated his granddaughter Stephanie by phone 05/02, bedside 05/03 Admission and Anticipated Discharge Date Admission Date: April 30, 2023 Subjective having L side/flank pain above his hip, severe and just started, suspected gas pain drank a little mag citrate, eating but reports poorly no BMs as of yet Physical Exam 2 Physical Exam: PHYSICAL EXAMINATION Last 24h vital signs reviewed, see documentation in flowsheet General: appears uncomfortable HEENT: Normocephalic, atraumatic, pupils round and equal, sclerae anicteric, no conjunctival injection, moist mucus membranes Lungs: Normal respiratory effort. Clear to auscultation bilaterally. No RRW Heart: Regular rate and rhythm, no murmurs. No JVD Abdomen: Soft, nontender, mildly to moderately distended hyperactive Bowel sounds present tender to palpation on oblique muscles at midaxillary line just above iliac crest. Extremities: Warm, dry, well-perfused. No extremity edema. no bullous lesions Neuro: Alert and oriented x self, to basic situation, face symmetric, moves 4 extremities well Psych: mildly agitated Results & Data Results & Data Vital Signs (Past 12 Hours) Vital Signs Temp Pulse Pulse Resp BP Pulse Ox O2 Del Method 05/03/23 15:08 36.4 C L 94 H 20 154/84 H 96 Room Air 05/03/23 11:30 36.2 C L 92 H 16 150/72 H 96 Room Air 05/03/23 07:30 Nasal Cannula 05/03/23 07:14 36.4 C L 95 H 18 170/84 H 94 Room Air Laboratory Results 05/02/23 06:41 05/03/23 07:02 PG Care Time/CCT Total # of Minutes Spent Total Time Spent with Patient: Total time spent is greater than 50% in coordination of care (as documented) at patient's floor/unit and/or counseling patient: Coding Level of Care Code 31854 SUB INP/OBS CARE 2/35MIN Diagnoses GYPSY (acute kidney injury) N17.9 Constipation by delayed colonic transit K59.01 Bilateral hydronephrosis N13.30 BPH loc w urin obs/LUTS N40.1 Hematuria R31.9 Myositis of both thighs M60.9
[2023-05-03] MEDS: bisacodyL 10 MG SUPP PR SCH (20:39)
[2023-05-04] MEDS: ALBUTEROL HFA 8 GM INHALER INH PRN (00:50)
--- NOTE | 2023-05-04 07:24 | XRay Report ---
XR chest 1V portable HISTORY: Shortness of breath. COMPARISON: Chest 04/29/2023. Abdomen and pelvis CT 04/29/2023. FINDINGS: No pneumothorax. There is a small left pleural effusion and left basilar densities. The hea rt is normal in size. The right lung is clear. No evidence for pulmonary edema. No acute fractures id entified. IMPRESSION: Small left pleural effusions/densities persist. ACT 112: Negative or not required by law. Electronically signed by: Greg Carr M.D. 05/04/2023 7:23 AM
[2023-05-04 08:05] LABS: BUN Creatinine Ratio 23.4 (10-20); Creatinine Clr Calc Pharmacy 15.8 ml/min; Est GFR (African American) 24.5 ml/min; Est GFR (Non-African American) 21.1 ml/min; Potassium 4.3 mmol/L (3.5-5.1)
--- NOTE | 2023-05-04 18:24 | Hospitalist Progress Note ---
Date of Service May 04, 2023 Assessment & Plan (1) GYPSY (acute kidney injury): Plan: Cr on admission 2.8 Minimal improvement in GYPSY despite rucker catheter and IV fluids Cr was 1 or less in fall 2022 FeNa was <1 and microscopy showed granular casts at time of admission - suggestive of ATN Imaging also with severe b/l hydronephrosis suggestive of chronic obstructive process as well thus, multiple causes of his GYPSY his overall intake remains poor will continue IV fluids repeat BMP am continue rucker appreciate urology consultation consider nephrology consultation as well (2) Constipation by delayed colonic transit: Plan: SEVERE finally moving bowels after use of aggressive bowel regimen stop dulcolax cont miralax BID + senna daily for maintenance check TSH in am (3) Bilateral hydronephrosis: Plan: continue Rucker catheter imaging c/w chronic obstruction likely from BPH (4) BPH loc w urin obs/LUTS: Plan: continue Rucker catheter, tamsulosin increased to 0.8 this admission, continue dutasteride follow-up with [facility] [place] urology post discharge of note - possible bladder wall clot but cannot rule out tumor based on imaging may need outpatient cysto by urology (5) Hematuria: Plan: resolved and has not recurred resumed plavix 05/03 w/o incident thus far monitor for recurrent gross hematuria etiology? 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 on long taper per dermatology Remains on prednisone 15 mg daily (current dose per family) Likely deserves some "stress dosing" in setting of current hospitalization Thus, will give additional 30mg tomorrow am (7) Bullous pemphigoid: Plan: see #6 abovbe (8) PAD (peripheral artery disease): Plan: cont plavix (9) Memory loss: Plan: would deserve visit to neurology as outpatinet for w/u check TSH in am consider B1 level check a B12 level while here Plan updated at bedside will need PT/OT post-discharge Admission and Anticipated Discharge Date Admission Date: April 30, 2023 Subjective pt sleepy during the visit he would open his eyes he c/o feeling cold at bedside she reports chronic poor PO intake, memory loss, poor liquid intake as well patient could not remember if he had a bowel movement today I checked with staff after the visit - MULTIPLE BMs this afternoon (jeff villarreal) Review of Systems Review of Systems: cv - denies chest pain pulm - denies dyspnea GI - denies pain or nausea Physical Exam Physical Exam: gen - very thin, NAD, confused mouth - MM dry neck - no JVD heart - RRR, s1 s2 lungs - CTA b/l abd - soft, NT, ND, BS+, no HSM, no masses ext - no edema, pulses 2+ b/l psych - oriented to person only Results & Data Results & Data Vital Signs (Past 12 Hours) Vital Signs Temp Pulse Resp BP BP Pulse Ox O2 Del Method 05/04/23 14:58 36.6 C 98 H 16 155/82 H 96 Room Air 05/04/23 09:06 Room Air 05/04/23 07:16 37.0 C 89 16 158/75 H 93 Room Air Laboratory Results Laboratory Results - last 24 hr 05/04/23 06:55 Sodium 140 Potassium 4.3 Chloride 112 H Carbon Dioxide 21 Anion Gap 7 BUN 61 H Creatinine 2.61 H Est Cr Clr Drug Dosing 15.8 Est GFR ( Amer) 24.5 Est GFR (Non-Af Amer) 21.1 BUN/Creatinine Ratio 23.4 H Glucose 87 Calcium 8.0 L PG Care Time/CCT Total # of Minutes Spent Total Time Spent with Patient: Total time spent is greater than 50% in coordination of care (as documented) at patient's floor/unit and/or counseling patient: Coding Level of Care Code 16567 SUB INP/OBS CARE 2/35MIN Diagnoses GYPSY (acute kidney injury) N17.9 Constipation by delayed colonic transit K59.01 Bilateral hydronephrosis N13.30 BPH loc w urin obs/LUTS N40.1 Hematuria R31.9 Myositis of both thighs M60.9 Bullous pemphigoid L12.0 PAD (peripheral artery disease) I73.9 Memory loss R41.3
[2023-05-05 08:31] LABS: Thyroid Stimulating Hormone 1.554 uIu/ml (0.300-4.500)
[2023-05-05 08:47] LABS: Calcium 7.9 mg/dl (8.6-10.3); Potassium 4.5 mmol/L (3.5-5.1)
[2023-05-05 08:52] LABS: BUN Creatinine Ratio 22.1 (10-20); Creatinine Clr Calc Pharmacy 15.2 ml/min; Est GFR (African American) 23.4 ml/min; Est GFR (Non-African American) 20.2 ml/min
[2023-05-05] MEDS: predniSONE 10 MG TABLET PO STA (10:25)
[2023-05-05] MEDS: SENNA 8.6 MG TAB PO SCH (10:27)
[2023-05-05] MEDS: SODIUM BICARBONATE 650 MG TAB PO SCH (11:37)
[2023-05-05] MEDS: METOPROLOL TARTRATE 25 MG TAB PO SCH (11:37)
--- NOTE | 2023-05-05 21:22 | Hospitalist Progress Note ---
Date of Service May 05, 2023 Assessment & Plan (1) GYPSY (acute kidney injury): Plan: Cr on admission 2.8 Minimal improvement in GYPSY despite rucker catheter, IV fluids and supportive care Cr was 1 or less in fall 2022 FeNa was <1 and microscopy showed granular casts at time of admission - suggestive of ATN Imaging also with severe b/l hydronephrosis suggestive of chronic obstructive process as well thus, multiple causes of his GYPSY his overall intake remains poor, but he has had 6+ days of IV fluids without change in his renal function thus, will stop IV fluids repeat BMP am continue rucker appreciate urology consultation consider nephrology consultation as well consider repeat imaging (renal u/s) consider repeat u/a (2) Constipation by delayed colonic transit: Plan: SEVERE finally moving bowels after use of aggressive bowel regimen despite moving bowels he had firm, hard stool in his rectum today suspect abd pain is due to the ongoing constipation problem cont miralax BID + senna daily for maintenance consider enemas to clean out the firm/hard stool in rectal vault (3) Bilateral hydronephrosis: Plan: continue Rucker catheter imaging c/w chronic obstruction likely from BPH (4) BPH loc w urin obs/LUTS: Plan: continue Rucker catheter, tamsulosin increased to 0.8 this admission, continue dutasteride follow-up with [facility] [place] urology post discharge of note - possible bladder wall clot but cannot rule out tumor based on imaging may need outpatient cysto by urology (5) Hematuria: Plan: resolved and has not recurred resumed plavix 05/03 w/o incident thus far monitor for recurrent gross hematuria etiology? will need outpatient cysto and other w/u per [facility] [place] Urology (6) Myositis of both thighs: Plan: 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 on long taper per dermatology Remains on prednisone 15 mg daily (current dose per family) Give some stress dosing - give 30mg extra prednisone today, 20mg tomorrow, and so forth (in addition to basal 15mg/day) Looks like patient was on doxy 100mg BID for prophylaxis per Dr Cabrera, dermatology will re-order (7) Bullous pemphigoid: Plan: see #6 above (8) PAD (peripheral artery disease): Plan: cont plavix (9) Memory loss: Plan: would deserve visit to neurology as outpatient for w/u TSH wnl consider B1 level check a B12 level while here Plan updated at bedside today will need PT/OT/rehab post-discharge Admission and Anticipated Discharge Date Admission Date: April 30, 2023 Subjective patient was eating his meal during the visit at bedside 's only concern is that he complains of mild abd pain when trying to have a BM denies rectal pain continues with BMs daily patient with baseline confusion - unable to provide much in the way of additional history Review of Systems Review of Systems: CV - no chest pain pulm - no dyspnea GI - no vomiting Physical Exam Physical Exam: gen - very thin, NAD, confused - but lying comfortably in bed mouth - MMM today neck - no JVD heart - RRR, s1 s2, no murmur lungs - CTA b/l abd - soft, NT, minimally distended, BS+, no HSM, no masses ext - no edema, pulses 2+ b/l psych - oriented to person only rectal exam (chaperoned by nursing staff) - small nonbleeding hemorrhoid, nonthrombosed; nontender ANNA; firm, hard stool in rectal vault skin - extensive erythematous papular rash on upper back with some crusting; no vesicles or bullae Results & Data Results & Data Vital Signs (Past 12 Hours) Vital Signs Temp Pulse Resp BP BP Pulse Ox O2 Del Method 05/05/23 21:02 36.8 C 91 H 18 165/77 H 97 Room Air 05/05/23 15:25 36.6 C 87 18 150/73 H 97 Room Air 05/05/23 11:35 98 H 20 167/84 H 96 Room Air Laboratory Results Laboratory Results 05/05/23 07:00 Sodium 139 Potassium 4.5 Chloride 111 H Carbon Dioxide 20 L Anion Gap 8 BUN 60 H Creatinine 2.71 H Est Cr Clr Drug Dosing 15.2 Est GFR ( Amer) 23.4 Est GFR (Non-Af Amer) 20.2 BUN/Creatinine Ratio 22.1 H Glucose 94 Calcium 7.9 L TSH 1.554 PG Care Time/CCT Total # of Minutes Spent Total Time Spent with Patient: Total time spent is greater than 50% in coordination of care (as documented) at patient's floor/unit and/or counseling patient: Coding Level of Care Code 08173 SUB INP/OBS CARE 235MIN Diagnoses GYPSY (acute kidney injury) N17.9 Constipation by delayed colonic transit K59.01 Bilateral hydronephrosis N13.30 BPH loc w urin obs/LUTS N40.1 Hematuria R31.9 Myositis of both thighs M60.9 Bullous pemphigoid L12.0 PAD (peripheral artery disease) I73.9 Memory loss R41.3
[2023-05-06 06:21] LABS: Hematocrit (blood only) 31.5 % (42.0-52.0); Hemoglobin 10.6 g/dl (14.0-18.0); Mean Corpuscular Hemoglobin 29.9 pg (25.0-34.0); Mean Corpuscular Hgb Conc 33.7 g/dL (32.0-36.0); Mean Platelet Volume 9.5 fL (9.4-12.4); Platelet Count 215 K/uL (130-400); RDW Coefficient of Variation 15.5 % (11.5-14.5); RDW Standard Deviation 51.2 fL (36.4-46.3); Red Blood Count 3.54 M/uL (4.70-6.10); White Blood Count 12.52 K/ul (4.8-10.8)
[2023-05-06 06:37] LABS: BUN Creatinine Ratio 21.2 (10-20); Calcium 8.1 mg/dl (8.6-10.3); Creatinine Clr Calc Pharmacy 14.1 ml/min; Est GFR (African American) 21.4 ml/min; Est GFR (Non-African American) 18.4 ml/min; Potassium 4.5 mmol/L (3.5-5.1)
[2023-05-06 09:32] LABS: Appearance Urine Cloudy (Clear); Bilirubin Urine Negative (Negative); Blood Urine 3+ (Negative); Color Urine Yellow; Epithelial Cell Urine Auto 0-5 /lpf (0-5); Glucose Urine UA Negative (Negative); Ketones Urine Negative (Negative); Leukocyte Esterase Urine 1+ (Negative); Nitrite Urine Negative (Negative); Protein Urine 2+ (Negative); Specific Gravity Urine 1.015 (1.000-1.030); Urobilinogen Urine Negative (Negative); WBC Urine Automated >30 /hpf (0-5); pH Urine 5.5 (4.5-7.5)
[2023-05-06 09:44] LABS: Mucus Urine Present (None Prsent); RBC Urine Automated >30 /hpf (0-4)
[2023-05-06 09:45] LABS: Bacteria Urine Automated 1+ (Negative)
[2023-05-06] MEDS: predniSONE 20 MG TAB PO STA (09:54)
[2023-05-06] MEDS: SODIUM BICARBONATE 650 MG TAB PO SCH (09:54)
[2023-05-06] MEDS: DOXYCYCLINE HYCLATE 100 MG CAP PO SCH (09:54)
--- NOTE | 2023-05-06 10:54 | Ultrasound Report ---
RENAL ULTRASOUND HISTORY: worsening acute renal failure COMPARISON: Abdomen and pelvis CT 04/29/2023. FINDINGS: Right kidney: 11.6 cm. Severe hydronephrosis, unchanged. Small amount of fluid noted within Morison's pouch. Normal corticomedullary differentiation and cortical thickness. Left kidney: 11.9 cm. Severe hydronephrosis, unchanged. Left perinephric edema is also noted. This is similar to the prior study. Normal corticomedullary differentiation and cortical thickness. Bladder: The bladder is decompressed by López catheter. This results in difficult evaluation of the b ladder. There is a 4.2 cm hyperechoic focus within the posterior bladder. This could represent a bloo d clot. A bladder mass be difficult to exclude. IMPRESSION: 1. Severe bilateral hydronephrosis, unchanged. 2. The bladder is decompressed by a López catheter resulting in difficult evaluation. 3. There is a 4.2 cm hyperechoic focus within the posterior bladder. This could represent a blood crystal t. A bladder mass be difficult to exclude. ACT 112: Negative or not required by law. Electronically signed by: Greg Carr M.D. 05/06/2023 10:53 AM
--- NOTE | 2023-05-06 11:54 | XRay Report ---
KUB CLINICAL HISTORY: Ongoing constipation, abdominal pain. COMPARISON STUDY: CT of the abdomen and pelvis April 29, 2023. KUB May 01, 2023. FINDINGS: Moderate to large amount of stool within the colon and rectum is present. Small and large b owel dilatation has mildly increased. No evidence for free air on supine exam. IMPRESSION: 1. Moderate to large amount of stool within the colon and rectum. 2. Increase in small and large bowel gaseous distention. This may reflect an ileus. Although less lik josh, a bowel obstruction cannot be completely excluded. ACT 112: Negative or not required by law. Electronically signed by: Tony Bryan M.D. 05/06/2023 11:53 AM
--- NOTE | 2023-05-06 15:29 | Nephrology Consultation ---
Date of Consultation May 06, 2023 Assessment & Plan (1) GYPSY (acute kidney injury): Non-oliguric. GYPSY due to bladder outlet obstruction with severe bilateral hydronephrosis and hydroureter. I would also suspect a component of underlying ATN but this should not be causing kidney dysfunction to progress at this time. Urine findings are more likely to be non-glomerular. This would be very atypical presentation for GN. Updated US continues to demonstrate hydronephrosis despite indwelling López cat heter. This may be a slow to resolve process but expedited urologic evaluation would be encouraged if creatinine continues to trend upward. Mr. Obrien continues to appear volume depleted. His oral mucosa are dry and skin turgor is decreased. JVP does appear to be elevated but there is no edema and lungs are clear. Additional IV hydration has been ordered. Medications are appropriately dosed for kidney function. (2) Bilateral hydronephrosis: If creatinine continues to rise, I would ask urology to consider expediting additional evaluation including cystoscopy. (3) Microhematuria: Clinically, this is more likely to be non-glomerular. I suspect this is related to the etiology of the patient's obstruction and not underlying GN. History of Present Illness Reason for Consultation: acute kidney injury Requesting Physician: Carlos Sousa MD Attending Physician: Carlos Sousa MD History of Present Illness Mr. 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 He presented to the emergency department on April 30 with generalized weakness, fatigue, abdominal pain, and hematuria. Symptoms were progressive over several weeks prior to admission. CT scan demonstrated severe bilateral hydronephrosis and hydroureter as well as a posterolateral bladder wall clot vs neoplasm. Mr. Obrien had negative office cystoscopy and CT in April 2022. He had been maintained on tamsulosin and dutasteride for BPH. Tamsulosin was increased and López catheter placed. The catheter remains in place. Mr. Obrien is non-oliguric. Urine is dark with an scotty hue. He was started on ceftriaxone for possible UTI on admission. Urine culture negative. He remains on Doxycycline and prednisone now for bullous pemphigoid. Baseline serum creatinine in February was 1.13 mg/dL. Creatinine on admission was 2.8 mg/dL. Creatinine improved to 2.44 mg/dL but has trended back up to 2.99 mg/dL today. IV hydration was provided for several days prior to admission but stopped within the past 24 hours. I discussed the patient with Dr. Sousa this morning. UA notable for >30 WBC, >30 RBC, and +2 protein. Mr. Obrien was in bed covered in blankets when I went to examine him. He was very tired and described feeling weak. He was not able to sit up in bed unassisted. He felt too tired to have a conversation but generally answered questions appropriately and was not somnolent. He admits to a very poor appetite. He did not endorse weight loss. He did not endorse pain. He is not having fevers or chills. He did not have any fluid retention or edema. He does not have diarrhea. Allergies Allergy/AdvReac Type Severity Reaction Status Date / Time pollen extracts Allergy Mild Congestion Verified 04/29/23 20:00 Home Medications Medication Instructions Recorded Confirmed Type acetaminophen 325 mg capsule 650 mg PO Q4H PRN Breakthrough Pain 12/17/22 04/29/23 History albuterol sulfate 90 mcg/actuation 2 inh inhalation Q6H PRN sob 12/17/22 04/29/23 History breath activated powder inhaler docusate sodium 100 mg capsule 100 mg PO DAILY PRN constipation 12/17/22 History (Colace) doxycycline hyclate 100 mg capsule 100 mg PO BID 12/17/22 04/29/23 History multivitamin 1 tab PO DAILY 12/17/22 04/29/23 History polyethylene glycol 3350 17 17 g PO DAILY 12/17/22 04/29/23 History gram/dose oral powder (Miralax) dutasteride 0.5 mg capsule 0.5 mg PO DAILY #60 caps 01/14/23 04/29/23 Rx (Avodart) tamsulosin 0.4 mg capsule (Flomax) 0.4 mg PO DAILY #60 caps 01/14/23 04/29/23 Rx clopidogrel 75 mg tablet (Plavix) 75 mg PO DAILY #30 tabs 01/28/23 04/29/23 Rx prednisone 20 mg tablet 10 mg PO DAILY 04/29/23 04/29/23 History prednisone 5 mg tablet 5 mg PO DAILY 04/29/23 04/29/23 History Patient History Medical History Renal lesion BPH (benign prostatic hyperplasia) 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 Rosacea Osteopenia Hyperlipidemia Carotid artery plaque Venous insufficiency (chronic) (peripheral) Nipple anomaly Memory changes Malignant melanoma of skin Left inguinal hernia Impacted cerumen Encounter for screening for malignant neoplasm of prostate Bilateral inguinal hernia Bilateral impacted cerumen Carotid artery plaque Sensorineural hearing loss (SNHL) of both ears Melanoma Hx of melanoma of skin LEG Surgical History Hx of biopsy (12/10/22) Left Thigh Muscle Biopsy and Culture(Left) - Young Villalta DO, FACS History of cataract extraction with lens replacement RIGHT Was given 2mg of versed without apparent complications Hx of hernia repair History of colostomy Family History Mother Colorectal cancer Denies family history of Ovarian cancer Prostate cancer Myocardial infarction Breast cancer Lung cancer Stroke Social History Smoking Status: Never smoker Tobacco Type: Cigarettes Cigarettes Per Day: HX OF PIPE USE, QUIT IN 2000; Second Hand Exposure: No; Do You Dip or Chew Tobacco: No; Hx Alcohol Use: No Hx Substance Use: No Preferred Language: Burkinan Communication Ability: Effective Visual Impairment: No Limitations Hearing Ability: Normal Group Fitness Manager Required: No Beliefs That Will Affect Care: None marital status: Current Living Situation: Spouse Current Living Situation Comment: lives in split level home with elderly current occupational status: retired Other Information That Helps Us Care for You: No Feels Safe at Home: Yes Safety Concerns: Feels Safe At This Time Childhood Exposure to Second-Hand Smoke: No Dental Care, Regularly: Yes Physical Activity Frequency: Does not Exercise Seatbelt Use: always Sunscreen Use: No Assistive Devices: Cane and Walker Review of Systems Constitutional: + fatigue and + weakness Physical Exam Constitutional: well developed, + thin and + frail appearing; no acute distress Eyes: + anicteric sclerae; no scleral abnormal ity and no corneal abnormality ENMT: Mouth: + dry oral mucous membranes Neck: normal visual inspection and trachea midline Respiratory: normal respiratory effort Auscultation: lungs clear to auscultation bilaterally Cardiovascular: Rate/Rhythm: regular rate Heart Sounds: normal S1 and normal S2 Vessels: + JVD Extremities: no edema Musculoskeletal: Extremities: no cyanosis and no clubbing Skin: normal turgor; no lesions Neurologic: Motor/Sensory: no tremor and no asterixis Psychiatric: Orientation: alert and oriented x 3 Affect: + depressed affect Results & Data Vital Signs (Past 12 Hours) Vital Signs Temp Pulse Resp BP Pulse Ox O2 Del Method 05/06/23 14:56 36.7 C 76 16 132/62 96 Room Air 05/06/23 08:00 Room Air 05/06/23 07:16 36.4 C L 77 16 138/81 92 Room Air Laboratory Results Laboratory Results - last 24 hr 05/06/23 05/06/23 05:48 09:14 WBC 12.52 H RBC 3.54 L Hgb 10.6 L Hct 31.5 L MCV 89.0 MCH 29.9 MCHC 33.7 RDW Std Deviation 51.2 H RDW Coeff of Marcial 15.5 H Plt Count 215 MPV 9.5 Sodium 138 Potassium 4.5 Chloride 111 H Carbon Dioxide 20 L Anion Gap 7 BUN 62 H Creatinine 2.92 H Est Cr Clr Drug Dosing 14.1 Est GFR ( Amer) 21.4 Est GFR (Non-Af Amer) 18.4 BUN/Creatinine Ratio 21.2 H Glucose 127 H Calcium 8.1 L Urine Color Yellow Urine Appearance Cloudy A Urine pH 5.5 Ur Specific [place] 1.015 Urine Protein 2+ H Urine Glucose (UA) Negative Urine Ketones Negative Urine Blood 3+ H Urine Nitrite Negative Urine Bilirubin Negative Urine Urobilinogen Negative Ur Leukocyte Esterase 1+ H Urine WBC (Auto) >30 H Urine RBC (Auto) >30 H U Hyaline Cast (Auto) 1-5 U Epithel Cells (Auto) 0-5 Urine Bacteria (Auto) 1+ H Urine Mucus Present A Urine Yeast Not Reportable Diagnostic Findings RENAL ULTRASOUND COMPARISON: Abdomen and pelvis CT 04/29/2023. FINDINGS: Right kidney: 11.6 cm. Severe hydronephrosis, unchanged. Small amount of fluid noted within Morison's pouch. Normal corticomedullary differentiation and cortical thickness. Left kidney: 11.9 cm. Severe hydronephrosis, unchanged. Left perinephric edema is also noted. This is similar to the prior study. Normal corticomedullary differentiation and cortical thickness. Bladder: The bladder is decompressed by López catheter. This results in difficult evaluation of the bladder. There is a 4.2 cm hyperechoic focus within the posterior bladder. This could represent a blood clot. A bladder mass be di fficult to exclude. IMPRESSION: 1. Severe bilateral hydronephrosis, unchanged. 2. The bladder is decompressed by a López catheter resulting in difficult evaluation. 3. There is a 4.2 cm hyperechoic focus within the posterior bladder. This could represent a blood clot. A bladder mass be difficult to exclude. PG Care Time/CCT Total # of Minutes Spent Total Time Spent with Patient: Total time spent is greater than 50% in coordination of care (as documented) at patient's floor/unit and/or counseling patient: Coding Level of Care Code 86089 IN/OBS CONSULT LVL 4,60M Diagnoses GYPSY (acute kidney injury) N17.9 Bilateral hydronephrosis N13.30 Microhematuria R31.29
[2023-05-06] MEDS: PLASMA-LYTE A 1,000 ML IV SCH (17:57)
--- NOTE | 2023-05-06 20:07 | Hospitalist Progress Note ---
Date of Service May 06, 2023 Assessment & Plan (1) GYPSY (acute kidney injury): Plan: Cr on admission 2.8 NO improvement in GYPSY despite rucker catheter, IV fluids and supportive care In fact Cr now 2.9 today despite the above measures Cr was 1 or less in fall 2022 FeNa was <1 and microscopy showed granular casts at time of admission - suggestive of ATN Imaging also with severe b/l hydronephrosis c/w chronic obstructive process as well - due to BPH? thus, multiple causes of his GYPSY his overall intake remains poor, but he has had 7+ days of IV fluids without change in his renal function despite rucker usage his severe b/l hydronephrosis remains on renal u/s today repeat u/a today with blood/protein I asked Dr Booth from [facility] Nephrology to consult to ensure no other process is present intrinsic to the kidneys themselves due to mild acidosis added bicarbonate therapy - increase to BID dosing continue rucker defer fluid management to Dr Booth BMP am if creatinine worsens - cysto with ureteral stents? other? (2) Constipation by delayed colonic transit: Plan: SEVERE with ileus due to such despite moving bowels several times this week he had firm, hard stool on ANNA y and KUB x-ray today still with SEVERE constipation suspect abd pain is due to the ongoing constipation problem cont miralax BID + senna daily for maintenance strongly consider enemas to clean out the firm/hard stool in rectal vault if he is only passing small smears of stool (3) Bilateral hydronephrosis: Plan: continue Rucker catheter imaging c/w chronic obstruction likely from BPH see #1 above (4) BPH loc w urin obs/LUTS: Plan: continue Rucker catheter, tamsulosin increased to 0.8 this admission, continue dutasteride of note - possible bladder wall clot but cannot rule out tumor based on imaging may need outpatient (vs inpatient) cysto by urology see #1 above (5) Hematuria: Plan: gross hematuria - resolved and has not recurred resumed plavix 05/03 w/o incident monitor for recurrent gross hematuria etiology? will need cysto and other w/u per [facility] Urology continues to have blood on u/a (6) Myositis of both thighs: Plan: 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 on long taper per dermatology Remains on prednisone 15 mg daily (current dose per family) Give some stress dosing - give 20mg extra prednisone today, 15mg tomorrow, then 10mg in 2 days Looks like patient was on doxy 100mg BID for prophylaxis per Dr Cabrera, dermatology re-ordered such (7) Bullous pemphigoid: Plan: see #6 above (8) PAD (peripheral artery disease): Plan: cont plavix (9) Memory loss: Plan: would deserve visit to neurology as outpatient for w/u TSH wnl check B1 level and B12 level tomorrow am (10) HTN (hypertension): Plan: nearly all BPs elevated since day of admission has intermittently had elevated BPs in the past may be related to his GYPSY, use of prednisone, etc started metoprolol 12.5mg BID on flomax as well for BPH which will offer some BP control Plan updated at bedside again today will need PT/OT/rehab post-discharge care d/w Dr Booth from nephrology Admission and Anticipated Discharge Date Admission Date: April 30, 2023 Subjective patient lying in bed upon my arrival was sleeping easily arousible he offers no specific complaints doesn't recall any of today's events due to dementia he is unable to offer any meaningful history denies abd pain, however denies dyspnea Review of Systems Review of Systems: gen - fatigue, weak, sleeping alot cv - no orthopnea GI - no nausea or emesis; does feel bloated Physical Exam Physical Exam: gen - very thin, NAD, confused - lying comfortably in bed flat mouth - MM mildly dry neck - no JVD heart - RRR, s1 s2, no murmur lungs - CTA b/l abd - soft, NT, mild-moderately distended, BS+, no HSM, no masses ext - no edema, pulses 2+ b/l psych - oriented to person only skin - no bullous rash on arms/legs or face Results & Data Results & Data Vital Signs (Past 12 Hours) Vital Signs Temp Pulse Pulse Resp BP BP Pulse Ox 05/06/23 19:30 36.5 C 82 16 168/81 H 97 05/06/23 14:56 36.7 C 76 16 132/62 96 O2 Del Method 05/06/23 19:30 Room Air 05/06/23 14:56 Room Air Laboratory Results Laboratory Results - last 24 hr 05/06/23 05/06/23 05:48 09:14 WBC 12.52 H RBC 3.54 L Hgb 10.6 L Hct 31.5 L MCV 89.0 MCH 29.9 MCHC 33.7 RDW Std Deviation 51.2 H RDW Coeff of Marcial 15.5 H Plt Count 215 MPV 9.5 Sodium 138 Potassium 4.5 Chloride 111 H Carbon Dioxide 20 L Anion Gap 7 BUN 62 H Creatinine 2.92 H Est Cr Clr Drug Dosing 14.1 Est GFR ( Amer) 21.4 Est GFR (Non-Af Amer) 18.4 BUN/Creatinine Ratio 21.2 H Glucose 127 H Calcium 8.1 L Urine Color Yellow Urine Appearance Cloudy A Urine pH 5.5 Ur Specific [place] 1.015 Urine Protein 2+ H Urine Glucose (UA) Negative Urine Ketones Negative Urine Blood 3+ H Urine Nitrite Negative Urine Bilirubin Negative Urine Urobilinogen Negative Ur Leukocyte Esterase 1+ H Urine WBC (Auto) >30 H Urine RBC (Auto) >30 H U Hyaline Cast (Auto) 1-5 U Epithel Cells (Auto) 0-5 Urine Bacteria (Auto) 1+ H Urine Mucus Present A Urine Yeast Not Reportable Diagnostic Findings Renal Ultrasound 05/06/23 07:53 RENAL ULTRASOUND HISTORY: worsening acute renal failure COMPARISON: Abdomen and pelvis CT 04/29/2023. FINDINGS: Right kidney: 11.6 cm. Severe hydronephrosis, unchanged. Small amount of fluid noted within Morison's pouch. Normal corticomedullary differentiation and cortical thickness. Left kidney: 11.9 cm. Severe hydronephrosis, unchanged. Left perinephric edema is also noted. This is similar to the prior study. Normal corticomedullary differentiation and cortical thickness. Bladder: The bladder is decompressed by Rucker catheter. This results in difficult evaluation of the bladder. There is a 4.2 cm hyperechoic focus within the posterior bladder. This could represent a blood clot. A bladder mass be difficult to exclude. IMPRESSION: 1. Severe bilateral hydronephrosis, unchanged. 2. The bladder is decompressed by a Rucker catheter resulting in difficult evaluation. 3. There is a 4.2 cm hyperechoic focus within the posterior bladder. This could represent a blood clot. A bladder mass be difficult to exclude. ACT 112: Negative or not required by law. Electronically signed by: Greg Carr M.D. 05/06/2023 10:53 AM KUB X-Ray 05/06/23 08:02 KUB CLINICAL HISTORY: Ongoing constipation, abdominal pain. COMPARISON STUDY: CT of the abdomen and pelvis April 29, 2023. KUB May 01, 2023. FINDINGS: Moderate to large amount of stool within the colon and rectum is present. Small and large bowel dilatation has mildly increased. No evidence for free air on supine exam. IMPRESSION: 1. Moderate to large amount of stool within the colon and rectum. 2. Increase in small and large bowel gaseous distention. This may reflect an ileus. Although less likely, a bowel obstruction cannot be completely excluded. ACT 112: Negative or not required by law. Electronically signed by: Tony Bryan M.D. 05/06/2023 11:53 AM PG Care Time/CCT Total # of Minutes Spent Total Time Spent with Patient: Total time spent is greater than 50% in coordination of care (as documented) at patient's floor/unit and/or counseling patient: Coding Level of Care Code 81360 SUB INP/OBS CARE 3/50MIN Diagnoses GYPSY (acute kidney injury) N17.9 Constipation by delayed colonic transit K59.01 Bilateral hydronephrosis N13.30 BPH loc w urin obs/LUTS N40.1 Hematuria R31.9 Myositis of both thighs M60.9 Bullous pemphigoid L12.0 PAD (peripheral artery disease) I73.9 Memory loss R41.3 HTN (hypertension) I10
[2023-05-07 07:35] LABS: Hematocrit (blood only) 29.3 % (42.0-52.0); Hemoglobin 9.7 g/dl (14.0-18.0); Mean Corpuscular Hemoglobin 29.8 pg (25.0-34.0); Mean Corpuscular Hgb Conc 33.1 g/dL (32.0-36.0); Mean Corpuscular Volume 90.2 fL (80.0-100.0); Mean Platelet Volume 9.7 fL (9.4-12.4); Platelet Count 213 K/uL (130-400); RDW Coefficient of Variation 15.9 % (11.5-14.5); RDW Standard Deviation 52.8 fL (36.4-46.3); Red Blood Count 3.25 M/uL (4.70-6.10); White Blood Count 10.78 K/ul (4.8-10.8)
[2023-05-07 08:05] LABS: Albumin Level 2.6 gm/dl (3.4-5.0); BUN Creatinine Ratio 20.4 (10-20); Calcium 7.9 mg/dl (8.6-10.3); Creatinine Clr Calc Pharmacy 13.2 ml/min; Est GFR (African American) 19.7 ml/min; Phosphorus 5.2 mg/dl (2.5-4.9); Potassium 4.4 mmol/L (3.5-5.1)
[2023-05-07] MEDS: predniSONE 5 MG TAB PO ONE (09:08)
[2023-05-07] MEDS: MINERAL OIL ENEMA 133 ML BTL PR ONE (09:36)
--- NOTE | 2023-05-07 09:57 | Nephrology Progress Note ---
Date of Service May 07, 2023 Assessment & Plan (1) GYPSY (acute kidney injury): Plan: Non-oliguric. GYPSY due to bladder outlet obstruction with severe bilateral hydronephrosis and hydroureter. I would also suspect a component of underlying ATN. Creatinine stable or slightly increased to 3.13 mg/dL. Urine findings, notably microscopic hematuria and proteinuria, are likely non- glomerular. This would be very atypical presentation for GN. Updated US continues to demonstrate hydronephrosis despite indwelling López catheter. This may be a slow to resolve process but expedited urologic evaluation has been requested. I reviewed the plan of care with Dr. Sousa this AM. Volume status is replete. JVP increased. I suspect that there is some component of fluid retention. IVF have been stopped. No emergent indication for diuretics. Oral intake encouraged. Medications are appropriately dosed for kidney function. (2) Bilateral hydronephrosis: Plan: Expedited urologic evaluation encouraged. (3) Microhematuria: Plan: Clinically, this is more likely to be non-glomerular. I suspect this is related to the etiology of the patient's obstruction and not underlying GN. Admission and Anticipated Discharge Date Admission Date: April 30, 2023 Subjective No acute events overnight. Mr. Obrien was sitting comfortably in bed this AM. No fevers or chills. He denies pain. He is non-oliguric. López draining clear yellow urine. No fluid retention or edema. Denies dyspnea. Review of Systems Review of Systems: All systems reviewed & are unremarkable except as noted in HPI & below Physical Exam Constitutional: well developed, + thin and + frail appearing; no acute distress Eyes: + anicteric sclerae; no scleral abnormal ity and no corneal abnormality ENMT: Mouth: + dry oral mucous membranes; no oral mucosal abnormality Neck: normal visual inspection and trachea midline Respiratory: + tachypneic; no respiratory distress Auscultation: lungs clear to auscultation bilaterally Cardiovascular: Rate/Rhythm: + tachycardic Heart Sounds: normal S1 and normal S2 Vessels: + JVD Extremities: no edema Musculoskeletal: Extremities: no cyanosis and no clubbing Skin: normal turgor; no lesions Neurologic: Motor/Sensory: no tremor and no asterixis Psychiatric: Orientation: alert, oriented to person and oriented to place Affect: + depressed affect Results & Data Vital Signs (Past 12 Hours) Vital Signs Temp Pulse Resp BP Pulse Ox O2 Del Method 05/07/23 09:00 36.7 C 100 H 16 147/73 H 95 Room Air Laboratory Results Laboratory Results - last 24 hr 05/07/23 06:49 WBC 10.78 RBC 3.25 L Hgb 9.7 L Hct 29.3 L MCV 90.2 MCH 29.8 MCHC 33.1 RDW Std Deviation 52.8 H RDW Coeff of Marcial 15.9 H Plt Count 213 MPV 9.7 Sodium 139 Potassium 4.4 Chloride 111 H Carbon Dioxide 22 Anion Gap 6 BUN 64 H Creatinine 3.13 H Est Cr Clr Drug Dosing 13.2 Est GFR ( Amer) 19.7 Est GFR (Non-Af Amer) 17.0 BUN/Creatinine Ratio 20.4 H Glucose 105 H Calcium 7.9 L Phosphorus 5.2 H Albumin 2.6 L Vitamin B1 Pending Vitamin B12 232 PG Care Time/CCT Total # of Minutes Spent Total Time Spent with Patient: Total time spent is greater than 50% in coordination of care (as documented) at patient's floor/unit and/or counseling patient: Coding Level of Care Code 46535 SUB INP/OBS CARE 3/50MIN Diagnoses GYPSY (acute kidney injury) N17.9 Bilateral hydronephrosis N13.30 Microhematuria R31.29
[2023-05-07] MEDS: CYANOCOBALAMIN (B-12) 500 MCG TABLET PO SCH (10:06)
--- NOTE | 2023-05-07 10:19 | Urology Progress Note ---
<Statement entered by Zheng Nichols MD - 05/07/23 11:20> I have discussed Mr. Obrien's case with SUSSY Jimenez and agree with the above documentation. Creatinine has started to trend upwards again despite catheter placement. Persistent hydronephrosis suggests there may be obstruction higher than the bladder outlet. We will plan on cystoscopy, bilateral retrog rade pyelogram and bilateral ureteral stent placement on 05/08. -Zheng Nichols MD. Date of Service May 07, 2023 Assessment & Plan (1) BPH loc w urin obs/LUTS: (2) Bilateral hydronephrosis: (3) GYPSY (acute kidney injury): (4) Urinary retention: Plan: Follow-up of bilateral hydronephrosis with presumed bladder outlet obstruction, GYPSY Hospital team reached out to urology to reassess patient due to persistent hydronephrosis and worsening renal function Urinary retention is managed by indwelling López catheter López is patent and draining appropriatelymaintain catheter Creatinine was previously downtrending, but has increased over the last few dayscreatinine 3.13 today Updated renal ultrasound yesterday showed severe bilateral hydronephrosis, unchanged; there is a 4.2 cm hyper echoic focus within the posterior bladder We discussed surgical intervention with cystoscopy and bilateral ureteral stent placement He had breakfast this morning, so will plan on intervention tomorrow Will make NPO at midnight Discussed plan of care with his , Dee Dee Plan for cystoscopy and bilateral ureteral stent placement tomorrow We discussed there is a chance that retrograde management may not be successful and percutaneous nephrostomy tubes may be required Continue with supportive care and medical management per primary service will follow Admission and Anticipated Discharge Date Admission Date: April 30, 2023 Subjective Asked by hospital team to revisit patient today Patient seen and examined at bedside this morning He is awake, alert and sitting up in bed Denies abdominal or flank pain López patent and draining clear yellow urine Denies nausea/vomiting Denies fever/chills Review of Systems Constitutional: as per Subjective / HPI Genitourinary: + as per Subjective / HPI Physical Exam Constitutional: + thin; no acute distress Respiratory: normal respiratory effort; no respiratory distress and no labored breathing Gastrointestinal (Abdomen): Inspection/Auscultation: abdomen normal to inspection Musculoskeletal: Head/Neck/Chest: normocephalic Neurologic: moves all extremities and awake Psychiatric: Orientation: alert and oriented x 3 Genitourinary: López patent and draining clear yellow urine Results & Data Vital Signs (Past 12 Hours) Vital Signs Temp Pulse Pulse Resp BP Pulse Ox O2 Del Method 05/07/23 09:54 80 16 Room Air 05/07/23 09:00 36.7 C 100 H 16 147/73 H 95 Room Air 05/07/23 07:30 Room Air O2 Flow Rate 05/07/23 09:54 95 05/07/23 09:00 05/07/23 07:30 PG Care Time/CCT Total # of Minutes Spent Total Time Spent with Patient: Total time spent is greater than 50% in coordination of care (as documented) at patient's floor/unit and/or counseling patient: Coding Level of Care Code 61856 SUB INP/OBS CARE 2/35MIN Diagnoses BPH loc w urin obs/LUTS N40.1 Bilateral hydronephrosis N13.30 GYPSY (acute kidney injury) N17.9 Urinary retention R33.9
--- NOTE | 2023-05-07 20:18 | Hospitalist Progress Note ---
Date of Service May 07, 2023 Assessment & Plan (1) GYPSY (acute kidney injury): Plan: Cr on admission 2.8 NO improvement in GYPSY despite rucker catheter, IV fluids and supportive care In fact Cr now 3.1 despite the above measures Cr was 1 or less in fall 2022 FeNa was <1 and microscopy showed granular casts at time of admission - suggestive of ATN Imaging also with severe b/l hydronephrosis c/w chronic obstructive process as well - initially thought 2nd BPH thus, multiple causes of his GYPSY despite rucker usage his severe b/l hydronephrosis remains on renal u/s that was obtained 05/06 his is obstructed at the level of the ureters? in light of imaging as well as worsening creatinine I contacted urology today plan - cystoscopy tomorrow with probable b/l ureteral stent placement NPO after MN tonight BMP am (2) Constipation by delayed colonic transit: Plan: SEVERE with ileus due to such slowly improving cont miralax BID + senna daily for maintenance s/p enema today (3) Bilateral hydronephrosis: Plan: continue Rucker catheter imaging c/w chronic obstruction likely from BPH can't rule out obstructed ureters as well see #1 above (4) BPH loc w urin obs/LUTS: Plan: continue Rucker catheter, tamsulosin increased to 0.8 this admission, continue dutasteride of note - possible bladder wall clot but cannot rule out tumor based on imaging to have cystoscopy tomorrow (5) Hematuria: Plan: gross hematuria - resolved and has not recurred resumed plavix 05/03 w/o incident monitor for recurrent gross hematuria etiology? continues to have blood on u/a cysto tomorrow (6) Myositis of both thighs: Plan: 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 on long taper per dermatology Remains on prednisone 15 mg daily (current dose per family) Give some stress dosing - give 15mg today, probably extra 15mg tomorrow (minimum), and so forth Cont doxy 100mg BID for prophylaxis per Dr Cabrera, dermatology (7) Bullous pemphigoid: Plan: see #6 above (8) PAD (peripheral artery disease): Plan: cont plavix (9) Memory loss: Plan: would deserve visit to neurology as outpatient for w/u TSH wnl B12 level is low-normal - supplement while B1 level is pending will place on thiamine 200mg BID (10) HTN (hypertension): Plan: nearly all BPs elevated since day of admission has intermittently had elevated BPs in the past may be related to his GYPSY, use of prednisone, etc started metoprolol 12.5mg BID on flomax as well for BPH which will offer some BP control BPs are improved with above Plan updated at bedside yesterday I called & spoke with pt's grand daughter by phone today; update given appreciate urology & nephrology assistance Admission and Anticipated Discharge Date Admission Date: April 30, 2023 Subjective lying comfortably in bed denies any complaints of pain eating 50% or less of meals per staff is having stools did have a stool with the enema today due to dementia he offers no other meaningful history/ROS Review of Systems Review of Systems: Unobtainable due to cognitive status Physical Exam Physical Exam: gen - very thin, NAD, pleasant confusion, mildly tachypnea during the visit mouth - MMM neck - ? mild JVD heart - RRR, s1 s2, no murmur lungs - CTA b/l but decreased BS bases with mild tachypnea abd - soft, NT, mild distension only today, BS+, no HSM, no masses ext - 1+ edema b/l, pulses 2+ b/l psych - oriented to person only Results & Data Results & Data Vital Signs (Past 12 Hours) Vital Signs Temp Pulse Pulse Resp BP Pulse Ox O2 Del Method 05/07/23 19:25 37.2 C 78 16 157/71 H 97 Room Air 05/07/23 15:19 36.8 C 79 16 152/74 H 96 Room Air 05/07/23 09:54 80 16 Room Air 05/07/23 09:00 36.7 C 100 H 16 147/73 H 95 Room Air O2 Flow Rate 05/07/23 19:25 05/07/23 15:19 05/07/23 09:54 95 05/07/23 09:00 Laboratory Results Laboratory Results - last 24 hr 05/07/23 06:49 WBC 10.78 RBC 3.25 L Hgb 9.7 L Hct 29.3 L MCV 90.2 MCH 29.8 MCHC 33.1 RDW Std Deviation 52.8 H RDW Coeff of Marcial 15.9 H Plt Count 213 MPV 9.7 Sodium 139 Potassium 4.4 Chloride 111 H Carbon Dioxide 22 Anion Gap 6 BUN 64 H Creatinine 3.13 H Est Cr Clr Drug Dosing 13.2 Est GFR ( Amer) 19.7 Est GFR (Non-Af Amer) 17.0 BUN/Creatinine Ratio 20.4 H Glucose 105 H Calcium 7.9 L Phosphorus 5.2 H Albumin 2.6 L Vitamin B1 Pending Vitamin B12 232 PG Care Time/CCT Total # of Minutes Spent Total Time Spent with Patient: Total time spent is greater than 50% in coordination of care (as documented) at patient's floor/unit and/or counseling patient: Coding Level of Care Code 71799 SUB INP/OBS CARE 2/35MIN Diagnoses GYPSY (acute kidney injury) N17.9 Constipation by delayed colonic transit K59.01 Bilateral hydronephrosis N13.30 BPH loc w urin obs/LUTS N40.1 Hematuria R31.9 Myositis of both thighs M60.9 Bullous pemphigoid L12.0 PAD (peripheral artery disease) I73.9 Memory loss R41.3 HTN (hypertension) I10
[2023-05-07] MEDS: THIAMINE HCL 100 MG TAB PO SCH (21:40)
[2023-05-08 07:10] LABS: BUN Creatinine Ratio 19.7 (10-20); Calcium 7.9 mg/dl (8.6-10.3); Creatinine Clr Calc Pharmacy 12.5 ml/min; Est GFR (African American) 18.4 ml/min; Est GFR (Non-African American) 15.9 ml/min; Potassium 4.4 mmol/L (3.5-5.1)
[2023-05-08] MEDS ORDERED: ATROPINE SULFATE 0.1 MG/ML 10ML SYR IV PRN (07:12)
[2023-05-08] MEDS ORDERED: fentaNYL citrate PF 100 MCG/2 ML VIAL IV PRN (07:12)
[2023-05-08] MEDS ORDERED: ePHEDrine sulfate 50 MG/ML AMP IV PRN (07:12)
[2023-05-08] MEDS ORDERED: ONDANSETRON INJ 2 MG/ML 2 ML VIAL IV PRN (07:12)
--- NOTE | 2023-05-08 07:12 | Anesthesiology Consultation ---
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 History Surgery Operation Date: 05/08/23 07:30 Proposed Procedures p Cystoscopy Retrograde Pyelogram Bilateral Stent Placements - Zheng Nichols MD Height/Weight Height: 5 ft 11 in Weight: 56.1 kg Allergies Allergy/AdvReac Type Severity Reaction Status Date / Time pollen extracts Allergy Mild Congestion Verified 04/29/23 20:00 Medications Home Medications Medication Instructions Recorded Confirmed Last Taken acetaminophen 325 mg capsule 650 mg PO Q4H PRN Breakthrough Pain 12/17/22 04/29/23 Unknown albuterol sulfate 90 mcg/actuation 2 inh inhalation Q6H PRN sob 12/17/22 04/29/23 01/26/23 11:00 breath activated powder inhaler docusate sodium 100 mg capsule 100 mg PO DAILY PRN constipation 12/17/22 04/29/23 Unknown (Colace) doxycycline hyclate 100 mg capsule 100 mg PO BID 12/17/22 04/29/23 04/29/23 08:00 multivitamin 1 tab PO DAILY 12/17/22 04/29/23 04/29/23 polyethylene glycol 3350 17 17 g PO DAILY 12/17/22 04/29/23 04/29/23 gram/dose oral powder (Miralax) dutasteride 0.5 mg capsule 0.5 mg PO DAILY #60 caps 01/14/23 04/29/23 04/29/23 (Avodart) tamsulosin 0.4 mg capsule (Flomax) 0.4 mg PO DAILY #60 caps 01/14/23 04/29/23 04/29/23 clopidogrel 75 mg tablet (Plavix) 75 mg PO DAILY #30 tabs 01/28/23 04/29/23 04/29/23 prednisone 20 mg tablet 10 mg PO DAILY 04/29/23 04/29/23 04/29/23 prednisone 5 mg tablet 5 mg PO DAILY 04/29/23 04/29/23 04/29/23 Active Medications Generic Name Dose Route Start Last Admin Trade Name Freq PRN Reason Stop Dose Admin Acetaminophen 650 mg 04/30/23 02:58 05/06/23 20:05 Acetaminophen 325 Mg Tab PO 05/30/23 03:57 650 mg Q4H PRN Administration Pain or Fever Albuterol 2 puffs 04/30/23 02:58 05/07/23 09:54 Albuterol Hfa 8 Gm Inhaler INH 05/30/23 03:57 2 puffs Q6H PRN Administration sob Clopidogrel Bisulfate 75 mg 05/03/23 09:00 05/07/23 09:10 Clopidogrel Bisulfate 75 Mg Tab PO 06/02/23 08:59 75 mg DAILY BERNADETTE Administration Cyanocobalamin 1,000 mcg 05/07/23 09:00 05/07/23 10:06 Cyanocobalamin (B-12) 500 Mcg Tablet PO 06/06/23 08:59 1,000 mcg QAM BERNADETTE Administration Doxycycline Hyclate 100 mg 05/06/23 09:00 05/07/23 20:05 Doxycycline Hyclate 100 Mg Cap PO 06/05/23 08:59 100 mg BID BERNADETTE Administration Finasteride 5 mg 04/30/23 09:00 05/07/23 09:09 Finasteride 5 Mg Tab PO 05/30/23 08:59 5 mg DAILY BERNADETTE Administration Metoprolol Tartrate 12.5 mg 05/05/23 10:15 05/07/23 20:04 Metoprolol Tartrate 25 Mg Tab PO 06/04/23 10:14 12.5 mg BID BERNADETTE Administration Polyethylene Glycol 17 gm 04/30/23 09:00 05/07/23 20:07 Polyethylene (Miralax) 17 Gm Pack PO 05/30/23 08:59 17 gm BID BERNADETTE Administration Prednisone 15 mg 05/02/23 09:00 05/07/23 09:36 Prednisone 5 Mg Tab PO 06/01/23 08:59 15 mg DAILY BERNADETTE Administration Sennosides 17.2 mg 05/05/23 09:00 05/07/23 09:10 Senna 8.6 Mg Tab PO 06/04/23 08:59 17.2 mg QAM BERNADETTE Administration Sodium Bicarbonate 650 mg 05/06/23 09:00 05/07/23 20:05 Sodium Bicarbonate 650 Mg Tab PO 06/05/23 08:59 650 mg BID BERNADETTE Administration Tamsulosin HCl 0.8 mg 04/30/23 21:00 05/07/23 20:05 Tamsulosin Hcl 0.4 Mg Cap PO 05/30/23 20:59 0.8 mg HS BERNADETTE Administration Thiamine HCl 200 mg 05/07/23 21:00 05/07/23 21:40 Thiamine Hcl 100 Mg Tab PO 06/06/23 20:59 200 mg BID BERNADETTE Administration Past Medical History Medical History Renal lesion BPH (benign prostatic hyperplasia) 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 Rosacea Osteopenia Hyperlipidemia Carotid artery plaque Venous insufficiency (chronic) (peripheral) Nipple anomaly Memory changes Malignant melanoma of skin Left inguinal hernia Impacted cerumen Encounter for screening for malignant neoplasm of prostate Bilateral inguinal hernia Bilateral impacted cerumen Carotid artery plaque Sensorineural hearing loss (SNHL) of both ears Melanoma Hx of melanoma of skin LEG Past Family History Family History Mother Colorectal cancer Denies family history of Ovarian cancer Prostate cancer Myocardial infarction Breast cancer Lung cancer Stroke Past Surgical History Surgical History Hx of biopsy (12/10/22) Left Thigh Muscle Biopsy and Culture(Left) - Young Villalta DO, FACS History of cataract extraction with lens replacement RIGHT Was given 2mg of versed without apparent complications Hx of hernia repair History of colostomy Social History Smoking Status: Never smoker tobacco type: pipe Smoking cigarettes per day: HX OF PIPE USE, QUIT IN 2000 Do You Dip or Chew Tobacco: No Hx Alcohol Use: No Alcohol type: beer alcohol intake frequency: holidays/special occasions only Hx Substance Use: No substance use type: does not use Physical Exam Vital Signs Last Vital Signs Temp 99.0 F 05/07/23 19:25 Pulse 78 05/07/23 19:25 Resp 16 05/07/23 19:25 BP 157/71 H 05/07/23 19:25 Pulse Ox 97 05/07/23 19:25 O2 Del Method Room Air 05/07/23 19:25 O2 Flow Rate 95 05/07/23 09:54 Testing Laboratory Results 05/07/23 06:49 05/08/23 06:30 PT 12.3 Seconds (9.0-12.0) H 04/29/23 16:00 INR 1.1 (0.9-1.1) 04/29/23 16:00 Urine Color Yellow 05/06/23 09:14 Urine Appearance Cloudy (Clear) A 05/06/23 09:14 Urine pH 5.5 (4.5-7.5) 05/06/23 09:14 Ur Specific [place] 1.015 (1.000-1.030) 05/06/23 09:14 Urine Protein 2+ (Negative) H 05/06/23 09:14 Urine Glucose (UA) Negative (Negative) 05/06/23 09:14 Urine Ketones Negative (Negative) 05/06/23 09:14 Urine Nitrite Negative (Negative) 05/06/23 09:14 Ur Leukocyte Esterase 1+ (Negative) H 05/06/23 09:14 Urine WBC (Auto) >30 /hpf (0-5) H 05/06/23 09:14 Urine RBC (Auto) >30 /hpf (0-4) H 05/06/23 09:14 U Hyaline Cast (Auto) 1-5 /lpf (0-5) 05/06/23 09:14 U Epithel Cells (Auto) 0-5 /lpf (0-5) 05/06/23 09:14 Urine Bacteria (Auto) 1+ (Negative) H 05/06/23 09:14 Urine RBC >30 /hpf (0-4) H 04/29/23 Unknown Urine WBC 10-30 /hpf (0-5) H 04/29/23 Unknown Ur Epithelial Cells 5-10 /lpf (0-5) H 04/29/23 Unknown 04/29/23 Unknown Urine Culture - Final Urine,Clean Catch No growth - less than 1,000 colonies/mL. Electrocardiogram Date: 04/29/23 Sinus tachycardia, rate 105 bpm Otherwise normal ECG When compared with ECG of 07-DEC-2022 11:23, Nonspecific T wave abnormality Anteroseptal leads no longer present Confirmed by Anselmo Peraza ([id number]) on 04/29/2023 4:27:16 PM Echocardiogram Date: 11/02/22 LV systolic function is normal RV is mildly dilated RV systolic function is normal RA is mildly dilated
[2023-05-08] MEDS ORDERED: fentaNYL citrate PF 100 MCG/2 ML VIAL ONE (07:28)
[2023-05-08] MEDS ORDERED: ONDANSETRON INJ 2 MG/ML 2 ML VIAL ONE (07:29)
[2023-05-08] MEDS ORDERED: PROPOFOL IV EMULSION 10 MG/ML 20 ML VIAL IV ONE ×3 (07:29→08:00)
[2023-05-08] MEDS ORDERED: LIDOCAINE 2% 2 ML VIAL/AMP(20MG/ML) INFIL ONE (07:29)
--- NOTE | 2023-05-08 07:31 | Urology Progress Note ---
Date of Service May 08, 2023 Assessment & Plan (1) BPH loc w urin obs/LUTS: (2) Bilateral hydronephrosis: Plan Reviewed the plan for cystoscopy, bilateral retrograde pyelogram and bilateral ureteral stent placement. We reviewed risks and benefits of the surgery. I also discussed this with his /POA. They expressed understanding and agreed to proceed with surgery. Admission and Anticipated Discharge Date Admission Date: April 30, 2023 Subjective Feeling well creatinine slightly increased from yesterday Not having any significant pain. Catheter draining well Review of Systems Review of Systems: 12 point review of systems negative exce pt for otherwise indicated. Physical Exam Constitutional: well developed and well nourished; no acute distress Eyes: + anicteric sclerae; pupils not irregula r Respiratory: normal respiratory effort; no respiratory distress, does not use accessory muscles and no cough Cardiovascular: well perfused Gastrointestinal (Abdomen): Inspection/Auscultation: abdomen normal to inspection; abdomen not distended Musculoskeletal: Extremities: extremities normal to inspection Skin: normal turgor; no rashes and no lesions Neurologic: moves all extremities and awake Psychiatric: Orientation: alert and oriented x 3 PG Care Time/CCT Total # of Minutes Spent Total Time Spent with Patient: Total time spent is greater than 50% in coordination of care (as documented) at patient's floor/unit and/or counseling patient: Coding Level of Care Code 49315 SUB INP/OBS CARE 04/15MIN Diagnoses BPH loc w urin obs/LUTS N40.1 Bilateral hydronephrosis N13.30
[2023-05-08] MEDS: ceFAZolin 2,000 MG/15 ML IV PUSH IV ONE (07:35)
--- NOTE | 2023-05-08 07:49 | XRay Report ---
XR chest 1V portable HISTORY: 88 years-old Male dyspnea, tachypnea; pulm edema? Acute shortness of breath COMPARISON: 05/04/2023 TECHNIQUE: AP view of the chest FINDINGS: Cardiomediastinal and hilar silhouettes are unchanged. Stable small left pleural effusion with left b asilar consolidation. No pneumothorax or overt pulmonary edema. Degenerative changes of the shoulders and spine. IMPRESSION: Unchanged small left pleural effusion with left basilar consolidation. ACT 112: Negative or not required by law. The above report was generated using voice recognition software. It may contain grammatical, syntax o r spelling errors. Electronically signed by: Landon Jacinto M.D. 05/08/2023 7:47 AM
--- NOTE | 2023-05-08 08:36 | Operative Report ---
PG Post Operative Report Pre & Post Diagnosis Operation Date: 05/08/23 07:30 Pre-Op Diagnosis: Bladder outlet obstruction, Benign Prostate Hypertrophy, Bilateral Hydronephrosis Post-Op Diagnosis: Bladder outlet obstruction, Benign Prostate Hypertrophy, Bilateral Hydron ephrosis, Bladder tumor I identified the patient and participated in the time-out.: Yes Procedure Operation Date: 05/08/23 07:30 Actual Procedures p Cystoscopy, Transuretheral Resection of Bladder Tumor(large) - Zheng Nichols MD Surgeon Zheng Nichols MD [facility] none Estimated Blood Loss 5 Findings See Below Large sessile friable bladder tumor on the posterior wall/trigone. Tumor was resected although ureteral orifices could not be visualized. Significant amount of remaining friable tissue even after resection below the contour of the bladder. Specimens Bladder tumor Drains 22 Wallisian López catheter with CBI running Anesthesia Type MAC Complications none Disposition Accompanied Patient To Recovery: Yes Disposition: Recovery Room Indications This is an 88-year-old male with recent elevation in creatinine with bilateral hydronephrosis. Although this initially improved with catheter management, hydronephrosis was found to be persistent and creatinine started to increase again. He presents to the OR today for bilateral ureteral stent placement. Description of Procedure The patient was identified in the holding area and informed consent was confirmed. He was taken to the operating room where anesthesia was initiated. He was placed in the dorsal lithotomy position with all pressure points appropriately padded. He was prepped and draped in the usual sterile fashion and a preoperative timeout was performed. A well-lubricated cystoscope was inserted per urethra and panendoscopy was performed. The pendulous urethra was normal. His prostate was somewhat enlarged. On the posterior aspect of the prostate and the bladder, there was a significant amount of friable tissue which had the appearance of a sessile bladder tumor. On further inspection, the seem to extend bilaterally towards each wall and essentially fused with the posterior wall of the bladder. Ureteral orifices were not immediately visible and any manipulation caused a fair amount of bleeding from the friable tissue. I introduced the bipolar resectoscope and used this to resect the friable tissue and suspected tumor down to the contour of the bladder and slightly deeper to try to obtain muscularis layer from the specimen. Even with this, I was never able to visualize ureteral orifices. Tumor chips were evacuated from the bladder and sent for pathologic analysis labeled as "bladder tumor". The bipolar loop was then used to obtain hemostasis as best as possible, although the friable tissue still continued to ooze with manipulation. I estimate the total resection area at approximately 5 cm At the conclusion of the case there was still a fair amount of friable/necrotic tissue at the base of the resection area. I was concerned this extended through the bladder wall and that further resection could cause a perforation. At this point, hemostasis was obtained as best as possible. 22 Wallisian three-way catheter was advanced per urethra. The balloon was inflated with 20 mL of normal saline and the catheter was attached to gravity drainage with CBI initiated. He was then awakened from anesthesia and was brought to the PACU in stable condition. I attest to the content of the Intraoperative Record and any orders documented therein. Any exceptions are noted below.
--- NOTE | 2023-05-08 09:15 | Anesthesiology Progress Note ---
Date of Service May 08, 2023 Anesthesia Post Procedure Vital Signs Vital Signs: Temp Pulse Pulse Resp BP BP Pulse Ox 05/08/23 09:05 87 22 169/84 H 95 05/08/23 08:55 97.7 F 88 22 167/89 H 95 05/08/23 08:45 89 20 155/83 H 97 05/08/23 08:35 97.9 F 93 H 16 133/76 99 05/07/23 19:25 99.0 F 78 16 157/71 H 97 05/07/23 15:19 98.2 F 79 16 152/74 H 96 05/07/23 09:54 80 16 O2 Del Method O2 Flow Rate 05/08/23 09:05 Room Air 05/08/23 08:55 Room Air 05/08/23 08:45 Room Air 05/08/23 08:35 Oxymask 4 05/07/23 19:25 Room Air 05/07/23 15:19 Room Air 05/07/23 09:54 Room Air 95 Pain Intensity Back: Pain Intensity: 5 Transfer of Care Handoff Completed per policy Notes Mental Status: alert / awake / arousable and participated in evaluation Patient Amnestic to Procedure: Yes Nausea / Vomiting: adequately controlled Pain: adequately controlled Airway Patency, RR, SpO2: stable & adequate BP & HR: stable & adequate Hydration State: stable & adequate Anesthetic Complications: no major complications apparent and Pt Satisfied with anesthetic care
--- NOTE | 2023-05-08 09:22 | Nephrology Progress Note ---
Date of Service May 08, 2023 Assessment & Plan (1) GYPSY (acute kidney injury): Plan: * Non-oliguric. GYPSY due to bladder outlet obstruction with severe bilateral hydronephrosis and hydroureter. I would also suspect a component of underlying ATN. Creatinine relatively stable at 3.3 * Volume status and electrolyte balance are acceptable. No acute indication for HD at this time (2) Bilateral hydronephrosis: Plan: * Ureteral orifices could not be seen on cystoscopy this morning. Patient has extensive bladder tumor that may extend through full thickness through wall of bladder * Await biopsy results and further Urology input Admission and Anticipated Discharge Date Admission Date: April 30, 2023 Subjective Mr. Obrien was evaluated in his hospital room following his cystoscopy this morning. He was having significant discomfort. 3 way López was in place janny ining bloody urine Review of Systems Review of Systems: unobtainable due to patient's discomfort Physical Exam Constitutional: + in distress Eyes: PERRL, conjunctivae normal, anicteric sclerae ENMT: external ear and nose normal, oropharynx normal Neck: trachea midline, no thyromegaly Respiratory: normal respiratory effort, lungs clear to auscultation Cardiovascular: RRR, no murmur, no edema Gastrointestinal (Abdomen): normal bowel sounds, soft, nontender, no hepatosplenomegaly Skin: no rashes, warm and dry Results & Data Vital Signs (Past 12 Hours) Vital Signs Temp Pulse Resp BP Pulse Ox O2 Del Method O2 Flow Rate 05/08/23 09:05 87 22 169/84 H 95 Room Air 05/08/23 08:55 36.5 C 88 22 167/89 H 95 Room Air 05/08/23 08:45 89 20 155/83 H 97 Room Air 05/08/23 08:35 36.6 C 93 H 16 133/76 99 Oxymask 4 Laboratory Results Laboratory Results - last 24 hr 05/08/23 06:30 Sodium 138 Potassium 4.4 Chloride 109 H Carbon Dioxide 22 Anion Gap 7 BUN 65 H Creatinine 3.30 H Est Cr Clr Drug Dosing 12.5 Est GFR ( Amer) 18.4 Est GFR (Non-Af Amer) 15.9 BUN/Creatinine Ratio 19.7 Glucose 91 Calcium 7.9 L Diagnostic Findings 05/08/23 Cystoscopy - Large sessile friable bladder tumor on the posterior wall/trigone. Tumor was resected although ureteral orifices could not be visualized. Significant amount of remaining friable tissue even after resection below the contour of the bladder. Concern that tumor may extend through wall of bladder PG Care Time/CCT Total # of Minutes Spent Total Time Spent with Patient: Total time spent is greater than 50% in coordination of care (as documented) at patient's floor/unit and/or counseling patient: Coding Level of Care Code 82907 SUB INP/OBS CARE 3/50MIN Diagnoses GYPSY (acute kidney injury) N17.9 Bilateral hydronephrosis N13.30
[2023-05-08] MEDS: predniSONE 20 MG TAB PO STA (10:19)
[2023-05-08] MEDS: HYDROmorphone INJ 0.5 MG/0.5 ML SYR IV STA ×2 (10:40→15:36)
[2023-05-08] MEDS: oxyBUTYnin chloride 5 MG TAB PO STA (10:53)
[2023-05-08] MEDS: ACETAMINOPHEN 500 MG TAB PO SCH (15:37)
--- NOTE | 2023-05-08 19:35 | Hospitalist Progress Note ---
Date of Service May 08, 2023 Assessment & Plan (1) Bilateral ureteral obstruction: Plan: as seen on cystoscopy today by Dr Nichols the obstruction is most likely due to the large bladder tumor that was present on the posterior wall of the bladder despite resection of as much of the tumor as possible the UOs were not identified due to this scenario and his persistent (and worsening) GYPSY he will need b/l percutaneous nephrostomy tubes contacted [facility] today for transfer for such they recommended transfer to [facility] on Wednesday to have these done will re-contact the [facility] transfer center on Wednesday am to coordinate this (2) Bladder neoplasm: Plan: large bladder tumor seen on cystoscopy today causing b/l ureteral obstruction s/p resection of the tumor highly concerning for bladder cancer 3-way rucker now in place with CBI HOLD plavix daily BMP appreciate Dr Nichols' assistance (3) GYPSY (acute kidney injury): Plan: Cr on admission 2.8 NO improvement in GYPSY despite rucker catheter, IV fluids and supportive care Cr worsened last few days to >3 Cr was 1 or less in fall 2022 FeNa was <1 and microscopy showed granular casts at time of admission - suggestive of ATN Imaging also with severe b/l hydronephrosis c/w chronic obstructive process as well - initially thought 2nd BPH thus, multiple causes of his GYPSY s/p cystoscopy today showing a large bladder tumor with obstruction of b/l ureters this is likely the main cause of his GYPSY will need nephrostomy tubes -- see above (4) Constipation by delayed colonic transit: Plan: SEVERE with ileus due to such improved cont miralax BID + senna daily for maintenance (5) Bilateral hydronephrosis: Plan: continue Rucker catheter see above re: today's cystoscopy (6) BPH loc w urin obs/LUTS: Plan: continue Rucker catheter, tamsulosin increased to 0.8 this admission, continue dutasteride (7) Hematuria: Plan: gross hematuria - had such for several weeks prior to admission 2nd to large bladder tumor s/p resection today during cystoscopy cont CBI via 3-way rucker (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 on long taper per dermatology Remains on prednisone 15 mg daily (current dose per family) cont stress dosing - give 20mg extra today for his procedure, probably extra 15mg tomorrow, and so forth Cont doxy 100mg BID for prophylaxis per Dr Cabrera, dermatology (9) Bullous pemphigoid: Plan: see #6 above (10) PAD (peripheral artery disease): Plan: hold plavix in light of hematuria and urological procedures (11) Memory loss: Plan: would deserve visit to neurology as outpatient for w/u TSH wnl B12 level is low-normal - supplement while B1 level is pending will place on thiamine 200mg BID (12) HTN (hypertension): Plan: cont metoprolol 12.5mg BID cont flomax Plan grand-daughter extensively updated by phone and at bedside she will keep Mr Obrien's informed multiple calls to [facility] today to coordinate transfer [place] correspondence with [facility] Urology Dr Nichols very complex care coordination total time spent on care activities - 80 minutes Admission and Anticipated Discharge Date Admission Date: April 30, 2023 Subjective saw patient post-cystoscopy he had received IV dilaudid and oxybutinin for pain & bladder spasms by the time I saw him he was much more comfortable than previous per nursing staff his grand-daughter and great-granddaughter were at bedside we discussed the need for nephrostomy tubes and need for transfer for this I called and spoke with Dr Vasquez, chief systems triage officer at [facility], who initially accepted Mr Obrien in transfer to [place] to have IR place nephrostomy tubes I later received a phone call back from him that beds were in short supply and transfer to [place] today would not be possible He did advise possible transfer to [facility] on Wednesday to have the IR physician there perform the nephrostomy tube placement I did tell him that that would be perfectly acceptable He advised calling the transfer center back on Wednesday am to coordinate this Review of Systems Review of Systems: cv - no chest pain pulm - no dyspnea GI - no nausea/emesis Physical Exam Physical Exam: gen - very thin, NAD, pleasant confusion perhaps less so than usual (very talkative when his family was present) mouth - MMM neck - no JVD heart - RRR, s1 s2, no murmur lungs - CTA b/l but decreased BS bases abd - soft, NT, mild distension, BS+, no HSM, no masses ext - <1+ edema b/l, pulses 2+ b/l psych - oriented to person, place only Results & Data Results & Data Vital Signs (Past 12 Hours) Vital Signs Temp Pulse Pulse Resp BP BP Pulse Ox 05/08/23 19:17 36.3 C L 76 16 154/75 H 96 05/08/23 15:03 36.5 C 84 16 176/86 H 95 05/08/23 11:21 36.4 C L 80 16 169/82 H 95 05/08/23 11:20 36.7 C 89 18 173/87 H 96 05/08/23 10:50 90 18 177/87 H 94 05/08/23 10:20 05/08/23 10:20 36.5 C 91 H 18 173/83 H 94 05/08/23 09:05 87 22 169/84 H 95 05/08/23 08:55 36.5 C 88 22 167/89 H 95 05/08/23 08:45 89 20 155/83 H 97 05/08/23 08:35 36.6 C 93 H 16 133/76 99 O2 Del Method O2 Flow Rate 05/08/23 19:17 Room Air 05/08/23 15:03 Room Air 05/08/23 11:21 Room Air 05/08/23 11:20 Room Air 05/08/23 10:50 Room Air 05/08/23 10:20 Room Air 05/08/23 10:20 Room Air 05/08/23 09:05 Room Air 05/08/23 08:55 Room Air 05/08/23 08:45 Room Air 05/08/23 08:35 Oxymask 4 Laboratory Results Laboratory Results - last 24 hr 05/08/23 05/08/23 06:30 15:07 Sodium 138 Potassium 4.4 Chloride 109 H Carbon Dioxide 22 Anion Gap 7 BUN 65 H Creatinine 3.30 H Est Cr Clr Drug Dosing 12.5 Est GFR ( Amer) 18.4 Est GFR (Non-Af Amer) 15.9 BUN/Creatinine Ratio 19.7 Glucose 91 Calcium 7.9 L SARS-CoV-2 RNA (RT-PCR) Pending PG Care Time/CCT Total # of Minutes Spent Total Time Spent with Patient: Total time spent is greater than 50% in coordination of care (as documented) at patient's floor/unit and/or counseling patient: Prolonged Care Time Prolonged Care Time: Yes Total Prolonged Care Time: 80 Coding Level of Care Code 37129 SUB INP/OBS CARE 3/50MIN (25 - SIGNIFICANT, SEPARATELY IDENTIFIABLE ) Diagnoses Bilateral ureteral obstruction N13.5 Bladder neoplasm D49.4 GYPSY (acute kidney injury) N17.9 Constipation by delayed colonic transit K59.01 Bilateral hydronephrosis N13.30 BPH loc w urin obs/LUTS N40.1 Hematuria R31.9 Myositis of both thighs M60.9 Bullous pemphigoid L12.0 PAD (peripheral artery disease) I73.9 Memory loss R41.3 HTN (hypertension) I10 Additional Codes Prolonged Care Time - Prolonged Care Time: Yes ([id number])
[2023-05-09 07:09] LABS: Hematocrit (blood only) 29.8 % (42.0-52.0); Mean Corpuscular Hemoglobin 30.3 pg (25.0-34.0); Mean Corpuscular Hgb Conc 33.6 g/dL (32.0-36.0); Mean Corpuscular Volume 90.3 fL (80.0-100.0); Mean Platelet Volume 9.6 fL (9.4-12.4); Platelet Count 228 K/uL (130-400); RDW Coefficient of Variation 15.8 % (11.5-14.5); RDW Standard Deviation 52.4 fL (36.4-46.3); White Blood Count 11.27 K/ul (4.8-10.8)
[2023-05-09 07:18] LABS: BUN Creatinine Ratio 18.1 (10-20); Creatinine Clr Calc Pharmacy 10.5 ml/min; Est GFR (African American) 14.9 ml/min; Est GFR (Non-African American) 12.9 ml/min; Potassium 4.6 mmol/L (3.5-5.1)
--- NOTE | 2023-05-09 09:08 | Urology Progress Note ---
Date of Service May 09, 2023 Assessment & Plan (1) Bladder neoplasm: Plan: We reviewed the findings of possible bladder tumor on cystoscopy. Pathology is still pending at this point and further management will depend on pathology results. I am suspicious that there is invasive disease causing the bilateral hydronephrosis. (2) Bilateral ureteral obstruction: Plan: Unable to place bilateral ureteral stents on 05/08. He is currently pending transfer on 05/10 for bilateral nephrostomy tubes. (3) Acute kidney injury: Plan: Creatinine elevated again today up to 3.93. Tentative plan for nephrostomy tubes on 05/10. Hopefully this will help relieve any obstructive portion of the GYPSY Admission and Anticipated Discharge Date Admission Date: April 30, 2023 Subjective S/p cystoscopy, transurethral resection of bladder tumor, unsuccessful attempted stent placement on 05/08/2023 He has some bladder spasms overnight but these seem to have improved. CBI required a little bit of irrigation for some clots, but seems to have cleared this morning Patient denies any significant pain at this time Physical Exam Physical Exam: Seated in bed, eating breakfast, NAD Results & Data Vital Signs (Past 12 Hours) Vital Signs Temp Pulse Resp BP Pulse Ox O2 Del Method O2 Flow Rate 05/09/23 07:50 36.9 C 92 H 16 166/79 H 99 Nasal Cannula 2 05/09/23 03:23 36.5 C 78 18 145/75 H 95 Room Air 05/08/23 23:21 36.7 C 71 18 136/73 96 Room Air PG Care Time/CCT Total # of Minutes Spent Total Time Spent with Patient: Total time spent is greater than 50% in coordination of care (as documented) at patient's floor/unit and/or counseling patient: Coding Level of Care Code 38445 SUB INP/OBS CARE 04/15MIN Diagnoses Bladder neoplasm D49.4 Bilateral ureteral obstruction N13.5 Acute kidney injury N17.9
--- NOTE | 2023-05-09 09:15 | Nephrology Progress Note ---
Date of Service May 09, 2023 Assessment & Plan (1) GYPSY (acute kidney injury): Plan: * Non-oliguric. GYPSY due to bladder outlet obstruction with severe bilateral hydronephrosis and hydroureter. Creatinine continues to progressively rise (Cr 3.9 today). * Volume status and electrolyte balance are acceptable. No acute indication for HD at this time (2) Bilateral hydronephrosis: Plan: * Ureteral orifices could not be seen on cystoscopy 05/08/23. Patient has extensive bladder tumor that may extend through full thickness through wall of bladder * Histology is pending * Probable transfer to tertiary care center for ongoing management Admission and Anticipated Discharge Date Admission Date: April 30, 2023 Subjective Mr. Obrien was evaluated in his hospital room this morning. He continues to have significant discomfort from his 3 way López catheter. Collection bag has bloody urine Review of Systems Review of Systems: unobtainable due to patient's discomfort Physical Exam Constitutional: + in distress Eyes: PERRL, conjunctivae normal, anicteric sclerae ENMT: external ear and nose normal, oropharynx normal Neck: trachea midline, no thyromegaly Respiratory: normal respiratory effort, lungs clear to auscultation Cardiovascular: RRR, no murmur, no edema Gastrointestinal (Abdomen): normal bowel sounds, soft, nontender, no hepatosplenomegaly Skin: no rashes, warm and dry Results & Data Vital Signs (Past 12 Hours) Vital Signs Temp Pulse Resp BP Pulse Ox O2 Del Method O2 Flow Rate 05/09/23 07:50 36.9 C 92 H 16 166/79 H 99 Nasal Cannula 2 05/09/23 03:23 36.5 C 78 18 145/75 H 95 Room Air 05/08/23 23:21 36.7 C 71 18 136/73 96 Room Air Laboratory Results Laboratory Results - last 24 hr 05/08/23 05/09/23 15:07 06:24 WBC 11.27 H RBC 3.30 L Hgb 10.0 L Hct 29.8 L MCV 90.3 MCH 30.3 MCHC 33.6 RDW Std Deviation 52.4 H RDW Coeff of Marcial 15.8 H Plt Count 228 MPV 9.6 Sodium 138 Potassium 4.6 Chloride 108 H Carbon Dioxide 23 Anion Gap 7 BUN 71 H Creatinine 3.93 H D Est Cr Clr Drug Dosing 10.5 Est GFR ( Amer) 14.9 Est GFR (Non-Af Amer) 12.9 BUN/Creatinine Ratio 18.1 Glucose 101 H Calcium 8.0 L SARS-CoV-2 RNA (RT-PCR) Negative PG Care Time/CCT Total # of Minutes Spent Total Time Spent with Patient: Total time spent is greater than 50% in coordination of care (as documented) at patient's floor/unit and/or counseling patient: Coding Level of Care Code 33364 SUB INP/OBS CARE 3/50MIN Diagnoses GYPSY (acute kidney injury) N17.9 Bilateral hydronephrosis N13.30
--- NOTE | 2023-05-09 17:34 | Hospitalist Progress Note ---
Date of Service May 09, 2023 Assessment & Plan (1) Bilateral ureteral obstruction: Plan: as seen on cystoscopy 05/08/[address] Nichols the obstruction is most likely due to the large bladder tumor that was present on the posterior wall of the bladder despite resection of as much of the tumor as possible the UOs were not identified due to this scenario and his persistent/worsening GYPSY he will need b/l percutaneous nephrostomy tubes [facility] 05[facility]08[facility]23 for transfer to [facility] for such they recommended transfer [facility] on Wednesday to have these done by IR there (no beds available at [facility], and IR would not be a vailable until Wednesday at [facility] anyway) will re-contact the [facility] first thing Wednesday am to coordinate this (2) Bladder neoplasm: Plan: large bladder tumor seen on cystoscopy 05/08/23 causing b/l ureteral obstruction s/p resection of the tumor highly concerning for bladder cancer 3-way rucker now in place with CBI HOLDING plavix due to significant hematuria daily BMP appreciate Dr Nichols' assistance (3) GYPSY (acute kidney injury): Plan: Cr on admission 2.8 NO improvement in GYPSY despite rucker catheter, IV fluids and supportive care Cr had worsened last few days to >3 Cr was 1 or less in fall 2022 FeNa was <1 and microscopy showed granular casts at time of admission - suggestive of ATN Thus, GYPSY combination of ATN along with obstruction Creatinine has worsened this weekend prompting cystoscopy on 05/08/23 this showed a large bladder tumor with obstruction of b/l ureters this is likely the main cause of his GYPSY will need nephrostomy tubes -- see above (4) Constipation by delayed colonic transit: Plan: SEVERE with ileus due to such much improved with distension much better cont miralax BID + senna daily for maintenance (5) Bilateral hydronephrosis: Plan: continue Rucker catheter see above re: cystoscopy findings (6) BPH loc w urin obs/LUTS: Plan: continue Rucker catheter cont tamsulosin and dutasteride (7) Hematuria: Plan: gross hematuria - had such for several weeks prior to admission 2nd to large bladder tumor s/p resection 05/08 during cystoscopy cont CBI via 3-way rucker H/H relatively stable today repeat CBC am (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 on long taper per dermatology Remains on prednisone 15 mg daily (current dose per family) Has received some stress dosing of his prednisone last few days Will give additional prednisone tomorrow as he will be getting perc nephrostomy tubes on Wednesday (hopefully) Cont doxy 100mg BID for prophylaxis per Dr Cabrera, dermatology (9) Bullous pemphigoid: Plan: see #6 above (10) PAD (peripheral artery disease): Plan: hold plavix in light of hematuria and urological procedures (11) Memory loss: Plan: would deserve visit to neurology as outpatient for w/u but more pressing issues are above TSH wnl B12 level is low-normal - supplement while B1 level is pending will place on thiamine 200mg BID (12) HTN (hypertension): Plan: cont metoprolol 12.5mg BID cont flomax Plan grand-daughter updated by phone this evening updated at bedside today [place] correspondence with urology/nephrology today I am concerned about his overall prognosis Even with perc nephro tubes his prognosis is very poor in light of the large bladder tumor he has what appears to be advanced dementia he has failure to thrive Will involve palliative care formally I tried to figure out with talking with his family today if we should even pursue the perc nephro tubes in light of his poor prognosis They seem to want to at least pursue nephro tubes for now Will re-eval everything first thing in am Admission and Anticipated Discharge Date Admission Date: April 30, 2023 Subjective patient resting in bed with eyes closed at bedside patient did wake up and answer questions denies any abd pain, bladder pain, chest pain denies feeling short of breath eating fair at best - 50% of meals only or less I had discussion with pt's about goals of care she admits that she & her never had extensive discussions about end-of-life wishes I explained to her that without the perc nephrostomy tubes his renal failure would continue and his life would be threatened I further explained that the bladder tumor - likely to be invasive bladder cancer - is likely going to be very difficult to treat she asked that I speak with their grand-daughter I did speak with their grand-daughter, Stephanie recommended that we involve palliative care formally in Mr Obrien's care Stephanie mentioned they have only 1 document at home (sounds like advanced directives) they could find that is, unfortunately, incomplete Stephanie states it mentions he would want CPR but he left all the other sections blank we discussed the perc nephrostomy tubes and whether to pursue these it sounds as if Stephanie and his still want to pursue this they both understand it will only help his obstruction and his renal failure the bladder cancer (presumed) will be the challenging issue (and he may not be a very good candidate for Rx) Review of Systems Review of Systems: CV - denies chest pain gen - is very tired pulm - denies dyspnea GI - no abd pain/nausea/emesis Physical Exam Physical Exam: gen - very thin, resting in bed with eyes closed, mild "quiet" tachypnea noted mouth - MMM neck - no JVD heart - RRR, s1 s2, no murmur lungs - CTA b/l but decreased BS bases b/l; no obvious rales abd - soft, NT, mild distension resolved, BS+, no HSM, no masses ext - 1+ edema b/l, pulses 2+ b/l psych - oriented to person, place only - rucker with lightly-colored pink-modestly red urine - improved from yesterday's exams Results & Data Results & Data Vital Signs (Past 12 Hours) Vital Signs Temp Pulse Resp BP Pulse Ox O2 Del Method O2 Flow Rate 05/09/23 15:10 36.3 C L 73 16 132/52 L 94 Room Air 05/09/23 07:50 36.9 C 92 H 16 166/79 H 99 Nasal Cannula 2 05/09/23 07:40 Room Air Laboratory Results Laboratory Results - last 24 hr 05/08/23 05/09/23 15:07 06:24 WBC 11.27 H RBC 3.30 L Hgb 10.0 L Hct 29.8 L MCV 90.3 MCH 30.3 MCHC 33.6 RDW Std Deviation 52.4 H RDW Coeff of Marcial 15.8 H Plt Count 228 MPV 9.6 Sodium 138 Potassium 4.6 Chloride 108 H Carbon Dioxide 23 Anion Gap 7 BUN 71 H Creatinine 3.93 H D Est Cr Clr Drug Dosing 10.5 Est GFR ( Amer) 14.9 Est GFR (Non-Af Amer) 12.9 BUN/Creatinine Ratio 18.1 Glucose 101 H Calcium 8.0 L SARS-CoV-2 RNA (RT-PCR) Negative PG Care Time/CCT Total # of Minutes Spent Total Time Spent with Patient: Total time spent is greater than 50% in coordination of care (as documented) at patient's floor/unit and/or counseling patient: Coding Level of Care Code 41743 SUB INP/OBS CARE 2/35MIN Diagnoses Bilateral ureteral obstruction N13.5 Bladder neoplasm D49.4 GYPSY (acute kidney injury) N17.9 Constipation by delayed colonic transit K59.01 Bilateral hydronephrosis N13.30 BPH loc w urin obs/LUTS N40.1 Hematuria R31.9 Myositis of both thighs M60.9 Bullous pemphigoid L12.0 PAD (peripheral artery disease) I73.9 Memory loss R41.3 HTN (hypertension) I10
--- NOTE | 2023-05-09 21:35 | Communication Note ---
Date of Service: May 09, 2023 Called to bedside by nursing due to new onset of shortness of breath. Patient is requiring 2 L of oxygen and has not needed much oxygen during his stay. Examining bedside patient seems in mild discomfort and is having some shortness of breath. Denies any chest pain. Denies any other issues or concerns. -Chest x-ray ordered and showed no significant change from prior x-ray on 05/04. -EKG showed normal sinus rhythm. -ABG showed a normal pH, normal bicarb, slightly lowered CO2 -Troponin negative. -CBC showed no significant from this a.m., though did show a slightly low hemoglobin of 8.6. Recommend to recheck in the a.m. -BMP showed worsening creatinine of 4.36. Initially given a bolus of 500 cc LR. -BNP negative -Low Wells score, on SCDs, ordered D-dimer which was elevated 4850. CT angio ordered to rule out PE. -CTA showed no pulmonary embolism. -Did show some interseptal thickening concerning for pulmonary edema as well as a large left and trace right pleural effusion -Will give 20mg IV lasix and consult pulmonary for possible thoracentesis
[2023-05-09 21:42] LABS: Base Excess ABG -3.3 mEq/L (-9-1.8); HCO3 ABG 21 mmol/L (19-24); Oxygen Saturation ABG 99.2 % (90-95); PCO2 ABG 32 mmHg (35-46); PO2 ABG 135 mmHg (80-95); pH ABG 7.42 (7.35-7.45)
[2023-05-09 21:49] LABS: Allen Test Pos (Pos)
[2023-05-09 22:00] LABS: Calcium 7.8 mg/dl (8.6-10.3); Potassium 4.8 mmol/L (3.5-5.1)
[2023-05-09 22:05] LABS: BUN Creatinine Ratio 17.4 (10-20); Creatinine Clr Calc Pharmacy 9.5 ml/min; Est GFR (African American) 13.2 ml/min; Est GFR (Non-African American) 11.4 ml/min
[2023-05-09 22:18] LABS: Troponin I High Sensitivity 8.5 pg/ml (0-20)
[2023-05-09] MEDS: LACTATED RINGER'S 500 ML IV ONE (22:23)
[2023-05-09 23:10] LABS: Basophils # (auto) 0.01 K/uL (0.00-0.20); Basophils % (auto) 0.1 %; Eosinophils # (auto) 0.02 K/uL (0.00-0.50); Eosinophils % (auto) 0.2 %; Hematocrit (blood only) 26.7 % (42.0-52.0); Hemoglobin 8.6 g/dl (14.0-18.0); Immature Granulocytes # (auto) 0.06 K/uL (0.01-0.20); Immature Granulocytes % (auto) 0.5 %; Lymphocytes # (auto) 0.53 K/uL (1.20-3.40); Lymphocytes % (auto) 4.8 %; Mean Corpuscular Hemoglobin 29.1 pg (25.0-34.0); Mean Corpuscular Hgb Conc 32.2 g/dL (32.0-36.0); Mean Corpuscular Volume 90.2 fL (80.0-100.0); Mean Platelet Volume 9.2 fL (9.4-12.4); Monocytes # (auto) 0.71 K/uL (0.11-0.59); Monocytes % (auto) 6.4 %; Neutrophils # (auto) 9.73 K/uL (1.40-6.50); Platelet Count 203 K/uL (130-400); RDW Coefficient of Variation 15.9 % (11.5-14.5); RDW Standard Deviation 52.6 fL (36.4-46.3); Red Blood Count 2.96 M/uL (4.70-6.10); White Blood Count 11.06 K/ul (4.8-10.8)
[2023-05-10 00:02] LABS: D Dimer 4850 ug/L FEU (0-500)
[2023-05-10] MEDS: OPTIRAY 320 125ml IV ONE (01:23)
--- NOTE | 2023-05-10 01:49 | CT Scan Report ---
Exam(s): CTA CHEST EXAM: CT Angiography Chest With Intravenous Contrast CLINICAL HISTORY: PE. TECHNIQUE: Axial computed tomographic angiography images of the chest with intravenous contrast. CTDI is 15.64 mGy and DLP is 604.99 mGy-cm. Automated exposure control was utilized for the study. A dose lowering technique was utilized adhering to the principles of ALARA. MIP reconstructed images were created and reviewed. COMPARISON: CTA chest 12/12/[address] abdomen and pelvis 04/29/2023 FINDINGS: Pulmonary arteries: Unremarkable. No pulmonary embolus. Aorta: Minimal atherosclerosis. No thoracic aortic aneurysm. Lungs: Bibasilar atelectasis. No consolidation. Interseptal thickening is concerning for pulmonary edema. Pleural space: Large left and trace right pleural effusions. No pneumothorax. Heart: Unremarkable. No cardiomegaly. No significant pericardial effusion. No evidence of RV dysfunction. Bones/joints: There are degenerative changes of the spine. No fracture. Soft tissues: Mild nonspecific body wall edema. Lymph nodes: Unremarkable. No enlarged lymph nodes. Kidneys and ureters: The left kidney is partially visualized. Redemonstrated hydronephrosis and significant perinephric fluid. IMPRESSION: 1. No pulmonary embolus. 2. Interseptal thickening is concerning for pulmonary edema. 3. Large left and trace right pleural effusions. 4. The left kidney is partially visualized. Redemonstrated hydronephrosis and significant perinephric fluid. This is not significant change since the prior CT abdomen and pelvis. Electronically signed by: Nela Lewis MD 05/10/23 01:48 AM
[2023-05-10] MEDS: FUROSEMIDE INJ 20 MG/2 ML VIAL IV ONE (04:36)
[2023-05-10] MEDS: ACETAMINOPHEN 1,000 MG/100 ML VIAL IV STA (05:47)
--- NOTE | 2023-05-10 08:07 | Pulmonary Consultation ---
Date of Consultation May 10, 2023 Assessment & Plan (1) Bilateral ureteral obstruction: (2) Pleural effusion: (3) Abnormal chest CT: Plan CT chest 05/10/2023 personally reviewed: Centrilobular emphysema appreciated bilaterally especially in the upper lobes Large left-sided pleural effusion with compressive atelectasis of the left lower lobe, minimal right-sided pleural effusion No mediastinal lymphadenopathy Pleural effusion is worse compared to CT abdominal pelvis done 04/29/2023 -- Left-sided pleural effusion Etiology seems to be most likely coming from fluid overload Patient also has bilateral hydronephrosis as well as new diagnosis bladder cancer BNP 45 --COPD with emphysema -- CKD Plan: Patient is positive for liters since coming to the hospital. He does have large left-sided pleural effusion but is not any respiratory distress. I discussed with the patient's and grand daughter [phone] regarding thoracentesis versus diuresis. It is unlikely that it will resolve totally with diuresis especially given the CKD Last dose of Plavix was 05/08/2023 Dr Sousa was able to have indepth discussion with granddaughter as well as patient's and they have decided to keep the patient comfortable. Which is appropriate given the multiple comorbidities that the patient has along with underlying dementia. No aggressive intervention from pulmonary side. All questions and queries of the patient's and family were answered in depth. No further recommendation from pulmonary perspective, will sign off Please call directly with any questions Please note the above document was generated using voice recognition software. It may contain grammatical, syntax or spelling errors.Any formal questions or concerns about the content, text or information contained within the body of this dictation should be directly addressed to the provider for clarification. 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 He was on 1 L oxygen and saturating 97-98% Patient's as well as granddaughter and grandchildren were in the room at the time of examination. His respiratory rate was in the teens. History was obtained from the previous chart as well as granddaughter. During the hospital course patient underwent cystoscopy with bladder mass. He was getting bladder irrigation continuous. He also got IV fluids while he was having all the procedures done. He has bilateral hydronephrosis most likely from the bladder mass. Case was discussed with Dr. Sousa as well Allergies Allergy/AdvReac Type Severity Reaction Status Date / Time pollen extracts Allergy Mild Congestion Verified 04/29/23 20:00 Home Medications Medication Instructions Recorded Confirmed Type acetaminophen 325 mg capsule 650 mg PO Q4H PRN Breakthrough Pain 12/17/22 04/29/23 History albuterol sulfate 90 mcg/actuation 2 inh inhalation Q6H PRN sob 12/17/22 04/29/23 History breath activated powder inhaler docusate sodium 100 mg capsule 100 mg PO DAILY PRN constipation 12/17/22 04/29/23 History (Colace) doxycycline hyclate 100 mg capsule 100 mg PO BID 12/17/22 04/29/23 History multivitamin 1 tab PO DAILY 12/17/22 04/29/23 History polyethylene glycol 3350 17 17 g PO DAILY 12/17/22 04/29/23 History gram/dose oral powder (Miralax) dutasteride 0.5 mg capsule 0.5 mg PO DAILY #60 caps 01/14/23 04/29/23 Rx (Avodart) tamsulosin 0.4 mg capsule (Flomax) 0.4 mg PO DAILY #60 caps 01/14/23 04/29/23 Rx clopidogrel 75 mg tablet (Plavix) 75 mg PO DAILY #30 tabs 01/28/23 04/29/23 Rx prednisone 20 mg tablet 10 mg PO DAILY 04/29/23 04/29/23 History prednisone 5 mg tablet 5 mg PO DAILY 04/29/23 04/29/23 History Patient History Medical History Renal lesion BPH (benign prostatic hyperplasia) 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 Rosacea Osteopenia Hyperlipidemia Carotid artery plaque Venous insufficiency (chronic) (peripheral) Nipple anomaly Memory changes Malignant melanoma of skin Left inguinal hernia Impacted cerumen Encounter for screening for malignant neoplasm of prostate Bilateral inguinal hernia Bilateral impacted cerumen Carotid artery plaque Sensorineural hearing loss (SNHL) of both ears Melanoma Hx of melanoma of skin LEG Surgical History Hx of biopsy (12/10/22) Left Thigh Muscle Biopsy and Culture(Left) - Young Villalta DO, FACS History of cataract extraction with lens replacement RIGHT Was given 2mg of versed without apparent complications Hx of hernia repair History of colostomy Family History Mother Colorectal cancer Denies family history of Ovarian cancer Prostate cancer Myocardial infarction Breast cancer Lung cancer Stroke Social History Smoking Status: Never smoker Tobacco Type: Cigarettes Cigarettes Per Day: HX OF PIPE USE, QUIT IN 2000; Second Hand Exposure: No; Do You Dip or Chew Tobacco: No; Hx Alcohol Use: No Hx Substance Use: No Preferred Language: Moldovan Communication Ability: Effective Visual Impairment: No Limitations Hearing Ability: Normal News Producer Required: No Beliefs That Will Affect Care: None marital status: Current Living Situation: Spouse Current Living Situation Comment: lives in split level home with elderly current occupational status: retired Feels Safe at Home: Yes Childhood Exposure to Second-Hand Smoke: No Dental Care, Regularly: Yes Physical Activity Frequency: Does not Exercise Seatbelt Use: always Sunscreen Use: No Assistive Devices: Cane and Walker Review of Systems 2 Review of Systems: All systems reviewed & are unremarkable except as noted in HPI & below Physical Exam 2 Physical Exam: Constitutional: No acute distress HEENT:PERRLA Respiratory system: Decreased air entry bilaterally, more decreased on the left side, no wheeze, rhonchi, positive crackles bilaterally CVS: S1-S2 positive, no murmurs or gallops Abdomen: Soft, nontender, nondistended, positive bowel sounds x4 Extremities: +2 pulses bilaterally radialis/ dorsalis pedis, no cyanosis, +2 pitting edema bilateral lower extremity Neuro: Resting comfortably Psych: Unable to assess G/U: Positive López Skin: no rashes, warm and dry Lymphatic: no cervical or axillary lymphadenopathy Results & Data Results & Data Vital Signs (Past 12 Hours) Vital Signs Temp Pulse Pulse Resp BP BP Pulse Ox 05/10/23 07:55 36.6 C 88 16 144/74 H 98 05/10/23 04:35 81 20 155/74 H 96 02/18/24 20:16 36.7 C 77 20 148/66 H 97 05/09/23 20:05 O2 Del Method O2 Flow Rate 05/10/23 07:55 Nasal Cannula 1 05/10/23 04:35 Nasal Cannula 1 05/09/23 20:16 Room Air 05/09/23 20:05 Room Air Laboratory Results 05/09/23 22:51 05/09/23 21:16 PG Care Time/CCT Total # of Minutes Spent Total Time Spent with Patient: Total time spent is greater than 50% in coordination of care (as documented) at patient's floor/unit and/or counseling patient: Coding Level of Care Code 23502 INT INP/OBS CARE 3/75MIN Diagnoses Bilateral ureteral obstruction N13.5 Pleural effusion J90 Abnormal chest CT R93.89
--- NOTE | 2023-05-10 08:14 | XRay Report ---
XR chest 1V portable HISTORY: Shortness of breath. COMPARISON: Chest 05/07/2023. FINDINGS: No pneumothorax. There is a moderate left pleural effusion which has likely increased in si ze with left basilar densities. The right lung is clear. No evidence for pulmonary edema. The heart i s normal in size. No acute fractures. IMPRESSION: 1. Moderate left pleural effusion which has likely increased in size with left basilar densities. Thi s could represent atelectasis or a pneumonia. 2. No evidence for pulmonary edema. ACT 112: Negative or not required by law. Electronically signed by: Greg Carr M.D. 05/10/2023 8:13 AM
[2023-05-10 08:29] LABS: Hematocrit (blood only) 29.9 % (42.0-52.0); Hemoglobin 10.1 g/dl (14.0-18.0); Mean Corpuscular Hemoglobin 30.2 pg (25.0-34.0); Mean Corpuscular Hgb Conc 33.8 g/dL (32.0-36.0); Mean Corpuscular Volume 89.5 fL (80.0-100.0); Mean Platelet Volume 9.5 fL (9.4-12.4); Platelet Count 245 K/uL (130-400); RDW Coefficient of Variation 15.9 % (11.5-14.5); Red Blood Count 3.34 M/uL (4.70-6.10); White Blood Count 12.14 K/ul (4.8-10.8)
--- NOTE | 2023-05-10 08:47 | Nephrology Progress Note ---
Date of Service May 10, 2023 Assessment & Plan (1) GYPSY (acute kidney injury): Plan: * Non-oliguric. GYPSY due to bladder outlet obstruction with severe bilateral hydronephrosis and hydroureter. Creatinine continues to progressively rise (Cr 4.57 today). * Now on oxygen at 1L/min. Electrolyte balance is acceptable. 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 Patient has extensive bladder tumor that may extend through full thickness through wall of bladder * Histology is pending * Patient and family are trying to decide whether to transfer to tertiary care center for ongoing care or consult with Palliative Care Admission and Anticipated Discharge Date Admission Date: April 30, 2023 Subjective Mr. Obrien was evaluated in his hospital room this morning. He continues to have significant discomfort from his 3 way López catheter. Review of Systems Review of Systems: unobtainable due to patient's discomfort Physical Exam Constitutional: + in distress Eyes: PERRL, conjunctivae normal, anicteric sclerae ENMT: external ear and nose normal, oropharynx normal Neck: trachea midline, no thyromegaly Respiratory: normal respiratory effort, lungs clear to auscultation Cardiovascular: RRR, no murmur, no edema Gastrointestinal (Abdomen): normal bowel sounds, soft, nontender, no hepatosplenomegaly Skin: no rashes, warm and dry Results & Data Vital Signs (Past 12 Hours) Vital Signs Temp Pulse Pulse Resp BP BP Pulse Ox 05/10/23 07:55 36.6 C 88 16 144/74 H 98 05/10/23 04:35 81 20 155/74 H 96 O2 Del Method O2 Flow Rate 05/10/23 07:55 Nasal Cannula 1 05/10/23 04:35 Nasal Cannula 1 Laboratory Results Laboratory Results - last 24 hr 05/09/23 05/09/23 05/10/23 21:16 22:51 07:50 WBC Cancelled 11.06 H 12.14 H RBC Cancelled 2.96 L 3.34 L Hgb Cancelled 8.6 L 10.1 L Hct Cancelled 26.7 L 29.9 L MCV Cancelled 90.2 89.5 MCH Cancelled 29.1 30.2 MCHC Cancelled 32.2 33.8 RDW Std Deviation Cancelled 52.6 H 52.0 H RDW Coeff of Marcial Cancelled 15.9 H 15.9 H Plt Count Cancelled 203 245 MPV Cancelled 9.2 L 9.5 Immature Gran % (Auto) Cancelled 0.5 Neut % (Auto) Cancelled 88.0 Lymph % (Auto) Cancelled 4.8 Jasper % (Auto) Cancelled 6.4 Eos % (Auto) Cancelled 0.2 Baso % (Auto) Cancelled 0.1 Neut # (Auto) Cancelled 9.73 H Lymph # (Auto) Cancelled 0.53 L Jasper # (Auto) Cancelled 0.71 H Eos # (Auto) Cancelled 0.02 Baso # (Auto) Cancelled 0.01 Immature Gran # (Auto) Cancelled 0.06 Absolute Nucleated RBC Cancelled Nucleated RBC % (auto) Cancelled Neutrophils % (Manual) Cancelled Band Neutrophils % Cancelled Lymphocytes % (Manual) Cancelled Prolymphocyte % Cancelled Reactive Lymphs % (Man) Cancelled Monocytes % (Manual) Cancelled Eosinophils % (Manual) Cancelled Basophils % (Manual) Cancelled Metamyelocytes % (Man) Cancelled Myelocytes % (Man) Cancelled Promyelocytes % (Man) Cancelled Blast Cells % (Manual) Cancelled Plasma Cell % (Manual) Cancelled Other Cells % Cancelled Nucleated RBC % Cancelled Neutrophils # (Manual) Cancelled Band Neutrophils # Cancelled Total Absolute Neuts Cancelled Lymphocytes # (Manual) Cancelled Prolymphocyte # Cancelled Reactive Lymphs # Cancelled Total Abs Lymphocytes Cancelled Monocytes # (Manual) Cancelled Eosinophils # (Manual) Cancelled Basophils # (Manual) Cancelled Metamyelocytes # (Man) Cancelled Myelocytes # (Manual) Cancelled Promyelocytes # (Man) Cancelled Blast Cells # (Man) Cancelled Plasma Cell # (Manual) Cancelled Other Cells # Cancelled Nucleated RBCs # (Man) Cancelled Hypersegmented Neuts Cancelled Hyposegmented Neuts Cancelled Hypogranular Neuts Cancelled Large Granular Lymphs Cancelled # Lrg Granular Lymphs Cancelled Hairy Cells Cancelled Smudge Cells Cancelled Toxic Granulation Cancelled Toxic Vacuolation Cancelled Dohle Bodies Cancelled Rashmi Rods Cancelled Platelet Estimate Cancelled Hypogranular Platelets Cancelled Giant Platelets Cancelled Platelet Satelliting Cancelled RBC Morphology Cancelled Polychromasia Cancelled Hypochromasia Cancelled Poikilocytosis Cancelled Basophilic Stippling Cancelled Anisocytosis Cancelled Microcytosis Cancelled Macrocytosis Cancelled Spherocytes Cancelled Pappenheimer Bodies Cancelled Sickle Cells Cancelled Target Cells Cancelled Tear Drop Cells Cancelled Ovalocytes Cancelled Stomatocytes Cancelled Lindsey-Jud Bodies Cancelled Echinocytes Cancelled Acanthocytes (Spur) Cancelled Rouleaux Cancelled RBC Agglutinates Cancelled Schistocytes Cancelled Sezary Cell Cancelled D-Dimer Cancelled 4850 H* ABG pH 7.42 ABG pCO2 32 L ABG pO2 135 H ABG HCO3 21 ABG O2 Saturation 99.2 H ABG Base Excess -3.3 Janes Test Pos Oxygen Given 2 L Sodium 137 137 Potassium 4.8 4.5 Chloride 108 H 105 Carbon Dioxide 21 23 Anion Gap 8 9 BUN 76 H 78 H Creatinine 4.36 H D 4.57 H* Est Cr Clr Drug Dosing 9.5 9.0 Est GFR ( Amer) 13.2 12.4 Est GFR (Non-Af Amer) 11.4 10.7 BUN/Creatinine Ratio 17.4 17.1 Glucose 139 H 89 Calcium 7.8 L 8.1 L Troponin I High Sens 8.5 B-Natriuretic Peptide 41 45 Blood Parasites ID Cancelled PG Care Time/CCT Total # of Minutes Spent Total Time Spent with Patient: Total time spent is greater than 50% in coordination of care (as documented) at patient's floor/unit and/or counseling patient: Coding Level of Care Code 27030 SUB INP/OBS CARE 3/50MIN Diagnoses GYPSY (acute kidney injury) N17.9 Bilateral hydronephrosis N13.30
[2023-05-10 09:03] LABS: BUN Creatinine Ratio 17.1 (10-20); Calcium 8.1 mg/dl (8.6-10.3); Est GFR (African American) 12.4 ml/min; Est GFR (Non-African American) 10.7 ml/min; Potassium 4.5 mmol/L (3.5-5.1)
--- NOTE | 2023-05-10 09:18 | Hospitalist Progress Note ---
Date of Service May 10, 2023 Assessment & Plan (1) Comfort measures only status: Plan: In light of worsening GYPSY, large left-sided pleural effusion with development of acute hypoxic respiratory failure overnight, large bladder tumor likely to be bladder cancer (and potentially high-grade), failure to thrive, advanced dementia, need for percutaneous nephrostomy tubes (which would require transfer), and need for thoracentesis -- multiple discussions had today with the pt's and his grand-daughter. Dr Venegas from palliative care was consulted. After multiple discussions pt's & grand-daughter opted to transition to comfort care measures only. Pt's reports pt would not want aggressive measures. Thus, transfer to tertiary care for nephrostomy tubes canceled. Comfort care orders placed Pt made DNR/DNI. Call Centre Supervisor consult. Appreciate Dr Venegas's assistance. All unnecessary meds stopped. (2) GYPSY (acute kidney injury): Plan: Cr on admission 2.8 Mostly due to ureteral obstruction b/l from large bladder tumor ATN may have played a role as well Cr has continued to worsen over the last 3-4 days He would need b/l perc nephrostomy tubes in order to survive and improve his GYPSY Intervention to be deferred - transitioning to comfort care measures (3) Pleural effusion: Plan: large, left no Rx see #1 (4) Acute hypoxic respiratory failure: Plan: 2nd to volume overload, large L pleural effusion, etc Cont NC O2 and narcotics for comfort (5) Bilateral ureteral obstruction: Plan: as seen on cystoscopy 05/08/[address] Nichols the obstruction is due to the large bladder tumor that was present on the posterior wall of the bladder despite resection of as much of the tumor as possible the UOs were not identified due to this scenario and his persistent/worsening GYPSY would have needed b/l percutaneous nephrostomy tubes contacted [facility] 05/08/23 for transfer to [facility] for such they recommended transfer to [facility] to have these done by IR there this request was 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 (6) Bladder neoplasm: Plan: large bladder tumor seen on cystoscopy 05/08/23 causing b/l ureteral obstruction s/p resection of the tumor highly concerning for bladder cancer - possibly high-grade 3-way rucker now in place with CBI cont CBI with the hopes of preventing clot formation which causes pain & bladder spasm (7) Constipation by delayed colonic transit: (8) Bilateral hydronephrosis: Plan: as above (9) BPH loc w urin obs/LUTS: Plan: continue Rucker stop alpha ramu, etc (10) Hematuria: Plan: 2nd to large bladder tumor s/p resection 05/08 during cystoscopy cont CBI via 3-way rucker no further CBCs (11) Myositis of both thighs: Plan: Bullous pemphigoid/myositis of thighs- previously on chronic prednisone stop all Rx (12) Bullous pemphigoid: (13) PAD (peripheral artery disease): (14) Memory loss: (15) HTN (hypertension): Plan: stop all meds Plan appreciate assistance from urology, nephrology, pulmonary appreciate assistance from palliative care transitioning to comfort care pathway very complex care coordination -- total time today 60 min Admission and Anticipated Discharge Date Admission Date: April 30, 2023 Subjective events of last 24 hours noted overnight developed O2 requirement had mild respiratory distress with tachypnea CT chest showed a large L pleural effusion during my early AM visit (about 0800) he was in bed with eyes closed he did open his eyes very briefly when I called his name when asked how he was he said "I feel terrible" and quickly went back to sleep urine in rucker was light pink shortly after my visit I called & spoke with his grand-daughter Kathy explained the acute worsening overnight including the O2 requirement and discovery of large left pleural effusion further explained that his creatinine continued to get worse and that he would need the left pleural effusion tapped as it would likely NOT improve with diuretics discussed that in order to survive he would still need transfer to tertiary care for b/l perc nephrostomy tubes in light of the large bladder tumor seen on cysto on Wednesday and the concerns it is likely a high-grade bladder ca I explained that being aggressive with his care may not lead to improvement in his overall quality of life Kathy reported that she had spoken extensively with her grandmother (pt's ) and they, too, were also concerned that patient likely wouldn't want this aggressive care for many months he was sleeping heavily on many days, rarely leaving the house, not wanting to go to doctor visits, etc we discussed that even if we could get him thru the thoracentesis and get him transferred for perc nephro tubes we would still be left with the large bladder tumor several hours later Dr Venegas met with the pt's at bedside after further discussion it was decided to stop routine care and proceed with a comfort care pathway Review of Systems Review of Systems: Unobtainable due to cognitive status Physical Exam Physical Exam: gen - looks much worse today; very sleepy; only briefly woke up; tachypneic, subtle retractions neck - no JVD heart - RRR, s1 s2, no murmur lungs - severely decreased BS on left, tachypnea, mild retractions abd - soft, NT, BS+, no HSM, no masses ext - 1-2+ edema b/l, pulses 2+ b/l psych - lethargic - rucker with lightly-colored pink urine Results & Data Results & Data Vital Signs (Past 12 Hours) Vital Signs Temp Pulse Pulse Resp BP BP Pulse Ox 05/10/23 07:55 36.6 C 88 16 144/74 H 98 05/10/23 04:35 81 20 155/74 H 96 O2 Del Method O2 Flow Rate 05/10/23 07:55 Nasal Cannula 1 05/10/23 04:35 Nasal Cannula 1 Laboratory Results Laboratory Results - last 24 hr 05/09/23 05/09/23 05/10/23 21:16 22:51 07:50 WBC Cancelled 11.06 H 12.14 H RBC Cancelled 2.96 L 3.34 L Hgb Cancelled 8.6 L 10.1 L Hct Cancelled 26.7 L 29.9 L MCV Cancelled 90.2 89.5 MCH Cancelled 29.1 30.2 MCHC Cancelled 32.2 33.8 RDW Std Deviation Cancelled 52.6 H 52.0 H RDW Coeff of Marcial Cancelled 15.9 H 15.9 H Plt Count Cancelled 203 245 MPV Cancelled 9.2 L 9.5 Immature Gran % (Auto) Cancelled 0.5 Neut % (Auto) Cancelled 88.0 Lymph % (Auto) Cancelled 4.8 Curry % (Auto) Cancelled 6.4 Eos % (Auto) Cancelled 0.2 Baso % (Auto) Cancelled 0.1 Neut # (Auto) Cancelled 9.73 H Lymph # (Auto) Cancelled 0.53 L Curry # (Auto) Cancelled 0.71 H Eos # (Auto) Cancelled 0.02 Baso # (Auto) Cancelled 0.01 Immature Gran # (Auto) Cancelled 0.06 Absolute Nucleated RBC Cancelled Nucleated RBC % (auto) Cancelled Neutrophils % (Manual) Cancelled Band Neutrophils % Cancelled Lymphocytes % (Manual) Cancelled Prolymphocyte % Cancelled Reactive Lymphs % (Man) Cancelled Monocytes % (Manual) Cancelled Eosinophils % (Manual) Cancelled Basophils % (Manual) Cancelled Metamyelocytes % (Man) Cancelled Myelocytes % (Man) Cancelled Promyelocytes % (Man) Cancelled Blast Cells % (Manual) Cancelled Plasma Cell % (Manual) Cancelled Other Cells % Cancelled Nucleated RBC % Cancelled Neutrophils # (Manual) Cancelled Band Neutrophils # Cancelled Total Absolute Neuts Cancelled Lymphocytes # (Manual) Cancelled Prolymphocyte # Cancelled Reactive Lymphs # Cancelled Total Abs Lymphocytes Cancelled Monocytes # (Manual) Cancelled Eosinophils # (Manual) Cancelled Basophils # (Manual) Cancelled Metamyelocytes # (Man) Cancelled Myelocytes # (Manual) Cancelled Promyelocytes # (Man) Cancelled Blast Cells # (Man) Cancelled Plasma Cell # (Manual) Cancelled Other Cells # Cancelled Nucleated RBCs # (Man) Cancelled Hypersegmented Neuts Cancelled Hyposegmented Neuts Cancelled Hypogranular Neuts Cancelled Large Granular Lymphs Cancelled # Lrg Granular Lymphs Cancelled Hairy Cells Cancelled Smudge Cells Cancelled Toxic Granulation Cancelled Toxic Vacuolation Cancelled Dohle Bodies Cancelled Rashmi Rods Cancelled Platelet Estimate Cancelled Hypogranular Platelets Cancelled Giant Platelets Cancelled Platelet Satelliting Cancelled RBC Morphology Cancelled Polychromasia Cancelled Hypochromasia Cancelled Poikilocytosis Cancelled Basophilic Stippling Cancelled Anisocytosis Cancelled Microcytosis Cancelled Macrocytosis Cancelled Spherocytes Cancelled Pappenheimer Bodies Cancelled Sickle Cells Cancelled Target Cells Cancelled Tear Drop Cells Cancelled Ovalocytes Cancelled Stomatocytes Cancelled Lindsey-Peerless Bodies Cancelled Echinocytes Cancelled Acanthocytes (Spur) Cancelled Rouleaux Cancelled RBC Agglutinates Cancelled Schistocytes Cancelled Sezary Cell Cancelled D-Dimer Cancelled 4850 H* ABG pH 7.42 ABG pCO2 32 L ABG pO2 135 H ABG HCO3 21 ABG O2 Saturation 99.2 H ABG Base Excess -3.3 Janes Test Pos Oxygen Given 2 L Sodium 137 137 Potassium 4.8 4.5 Chloride 108 H 105 Carbon Dioxide 21 23 Anion Gap 8 9 BUN 76 H 78 H Creatinine 4.36 H D 4.57 H* Est Cr Clr Drug Dosing 9.5 9.0 Est GFR ( Amer) 13.2 12.4 Est GFR (Non-Af Amer) 11.4 10.7 BUN/Creatinine Ratio 17.4 17.1 Glucose 139 H 89 Calcium 7.8 L 8.1 L Troponin I High Sens 8.5 B-Natriuretic Peptide 41 45 Blood Parasites ID Cancelled PG Care Time/CCT Total # of Minutes Spent Total Time Spent with Patient: Total time spent is greater than 50% in coordination of care (as documented) at patient's floor/unit and/or counseling patient: Coding Level of Care Code 23212 SUB INP/OBS CARE 3/50MIN Diagnoses Comfort measures only status Z51.5 GYPSY (acute kidney injury) N17.9 Pleural effusion J90 Acute hypoxic respiratory failure J96.01 Bilateral ureteral obstruction N13.5 Bladder neoplasm D49.4 Constipation by delayed colonic transit K59.01 Bilateral hydronephrosis N13.30 BPH loc w urin obs/LUTS N40.1 Hematuria R31.9 Myositis of both thighs M60.9 Bullous pemphigoid L12.0 PAD (peripheral artery disease) I73.9 Memory loss R41.3 HTN (hypertension) I10
--- NOTE | 2023-05-10 09:54 | Palliative Care Consultation ---
Date of Consultation May 10, 2023 Assessment & Plan (1) Dyspnea and respiratory abnormalities: (2) Weakness generalized: (3) Discussion about advance care planning held with family member: A face to face ACP was held with pt at bedside for 25min With her consent and voluntary participation we discussed clinical events to date She tells me she believes he is nearing his end of life and that she has been discussing this with her granddaughter Stephanie who also agrees. She does not want escalating or agrgessive care nor does she want a transfer to higher level. She states pt would not want those things for himself and would be telling everyone to just allow him to depart from this life peacefully. We discussed DIRECTOR OF PLACEMENT and she agreed. We discussed dispo planning and hospice - We discussed the goals of hospice as a patient service and the goals of care; we discussed EOL trajectories and transitions ekaterina the emotional impact of realizing mortality as a concrete reality from prior abstract considerations. Pt was reassured that no matter where they are along this trajectory, they are not alone - their medical team will remain by their side through their journey. Discussed the pros/cons of accepting help when especially weakened and distressed by pain-which would also help provide relief/decrease caregiver burden/strain. She does not want home hospice but she would prefer [facility] for SNF comfort placement and this has been shared with primary team. DIRECTOR OF PLACEMENT orders written (4) Palliative care by specialist: Met with /family. Provided overview of Palliative Medicine, a subspecialty that provides specialized medical care for people living with a serious illness by offering a focus on quality of life. Palliative Medicine is often conflated with hospice: I advised patient/family that Palliative and hospice can be partners but we are not the same. It is important to understand the difference so that we may be informed, and not afraid. Palliative Medicine works to improve QOL through reduction of symptom burden/more control over their illness, for both the patient and family. Palliative medicine clinicians are board certified, specially-trained and another member of the patient's medical care team. We often provide an extra layer of support because our care is based on the needs of the patient, not the prognosis; as such, it's appropriate at any age/advancing stage of a serious illness and can be provided along with curative treatment. Palliative Medicine clinicians are also trained in advanced communication methodologies, to facilitate complex discussions about advanced illness planning, which are needed to help assure that the treatment choices match the patient's goals, aka delivering Goal Concordant care. Finally, we discussed that hospice is a visiting nurse service that focuses on care delivered at the very end of life for patients with terminal illness, with life expectancy less than 6 month. Plan DIRECTOR OF PLACEMENT Orders written ACP meeting as noted above Updated primary team Thank you for allowing us to participate in the ongoing care of this patient. Please don't hesitate to call or page with any additional concerns. Dr. Niru Venegas DNP Director, Palliative Care History of Present Illness Reason for Consultation: bladder ca, obstruction, dementia, FTT Attending Physician: Carlos Sousa MD History of Present Illness Bertrand is an 88yo male with bladder cancer, large bladder tumor and obstruction with FTT and declining PS. There was a large bladder tumor seen on cystoscopy 05/08/23 causing b/l ureteral obstruction and he is s/p resection of the tumor which is highly suspicious for cancer. Allergies Allergy/AdvReac Type Severity Reaction Status Date / Time pollen extracts Allergy Mild Congestion Verified 04/29/23 20:00 Home Medications Medication Instructions Recorded Confirmed Type acetaminophen 325 mg capsule 650 mg PO Q4H PRN Breakthrough Pain 12/17/22 04/29/23 History albuterol sulfate 90 mcg/actuation 2 inh inhalation Q6H PRN sob 12/17/22 04/29/23 History breath activated powder inhaler docusate sodium 100 mg capsule 100 mg PO DAILY PRN constipation 12/17/22 04/29/23 History (Colace) doxycycline hyclate 100 mg capsule 100 mg PO BID 12/17/22 04/29/23 History multivitamin 1 tab PO DAILY 12/17/22 04/29/23 History polyethylene glycol 3350 17 17 g PO DAILY 12/17/22 04/29/23 History gram/dose oral powder (Miralax) dutasteride 0.5 mg capsule 0.5 mg PO DAILY #60 caps 01/14/23 04/29/23 Rx (Avodart) tamsulosin 0.4 mg capsule (Flomax) 0.4 mg PO DAILY #60 caps 01/14/23 04/29/23 Rx clopidogrel 75 mg tablet (Plavix) 75 mg PO DAILY #30 tabs 01/28/23 04/29/23 Rx prednisone 20 mg tablet 10 mg PO DAILY 04/29/23 04/29/23 History prednisone 5 mg tablet 5 mg PO DAILY 04/29/23 04/29/23 History Patient History Medical History (Updated 05/10/23 @ 18:22 by Niru Venegas DNP) Palliative care by specialist Discussion about advance care planning held with family member Weakness generalized Dyspnea and respiratory abnormalities Renal lesion BPH (benign prostatic hyperplasia) 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 Rosacea Osteopenia Hyperlipidemia Carotid artery plaque Venous insufficiency (chronic) (peripheral) Nipple anomaly Memory changes Malignant melanoma of skin Left inguinal hernia Impacted cerumen Encounter for screening for malignant neoplasm of prostate Bilateral inguinal hernia Bilateral impacted cerumen Carotid artery plaque Sensorineural hearing loss (SNHL) of both ears Melanoma Hx of melanoma of skin LEG Surgical History Hx of biopsy (12/10/22) Left Thigh Muscle Biopsy and Culture(Left) - Young Villalta DO, FACS History of cataract extraction with lens replacement RIGHT Was given 2mg of versed without apparent complications Hx of hernia repair History of colostomy Family History Mother Colorectal cancer Denies family history of Ovarian cancer Prostate cancer Myocardial infarction Breast cancer Lung cancer Stroke Social History Smoking Status: Never smoker Tobacco Type: Cigarettes Cigarettes Per Day: HX OF PIPE USE, QUIT IN 2000; Second Hand Exposure: No; Do You Dip or Chew Tobacco: No; Hx Alcohol Use: No Hx Substance Use: No Preferred Language: Kinyarwanda Communication Ability: Effective Visual Impairment: No Limitations Hearing Ability: Normal Road Contractor Required: No Beliefs That Will Affect Care: Adventism marital status: Current Living Situation: Spouse Current Living Situation Comment: lives in split level home with elderly current occupational status: retired Feels Safe at Home: Yes Childhood Exposure to Second-Hand Smoke: No Dental Care, Regularly: Yes Physical Activity Frequency: Does not Exercise Seatbelt Use: always Sunscreen Use: No Assistive Devices: Cane and Walker Review of Systems Review of Systems: Unobtainable due to cognitive status Physical Exam Constitutional: + acute distress, + ill appearing, + cac hectic and + frail appearing Eyes: PERRL ENMT: Mouth: + dry oral mucous membranes and + poor dentition Neck: trachea midline Thyroid: normal thyroid Respiratory: + labored breathing (mild), + uses acces moe muscles and symmetric chest movement Auscultation: + diminished lung sounds Cardiovascular: Rate/Rhythm: + tachycardic Gastrointestinal (Abdomen): Inspection/Auscultation: + scaphoid and + hypoactive bowel sounds Musculoskeletal: generalized weakness Skin: + turgor decreased, + skin tightening an d + pallor Neurologic: lethargy Results & Data Vital Signs (Past 12 Hours) Vital Signs Temp Pulse Pulse Resp BP BP Pulse Ox 05/10/23 09:29 95 H 153/74 H 98 05/10/23 07:55 36.6 C 88 16 144/74 H 98 05/10/23 04:35 81 20 155/74 H 96 O2 Del Method O2 Flow Rate 05/10/23 09:29 Room Air, Oxymask 1 05/10/23 07:55 Nasal Cannula 1 05/10/23 04:35 Nasal Cannula 1 Laboratory Results data reviewed Diagnostic Findings data reviewed PG Care Time/CCT Total # of Minutes Spent Total Time Spent with Patient: Time spent is greater than 50% in coordination of care (as documented) at patient's floor/unit and/or counseling patient: I spent 90 minutes overall addressing this case: 15 min in medical data review/discussion with referring provider(s) and/or preparation for the visit 20 min in direct interaction with the patient/exam 25 min in Advance Care Planning/Goals of Care discussions as detailed above in note (must be >16min) 15 min in subsequent review and synthesis of assessment and plan 15 min communicating with other providers regarding the patient's case: Advanced Care Planning 22084 Advanced Care Planning 30 [place] [address] IN/OBS CONSULT LVL 3,45M Patient Type New History Comprehensive Exam Comprehensive Medical Decision Making High Complexity Diagnoses Dyspnea and respiratory abnormalities R06.00; R06.89 Weakness generalized R53.1 Discussion about advance care planning held with family member Z71.0 Palliative care by specialist Z51.5 Additional Codes Advanced Care Planning - 32841 Advanced Care Planning 30 Min: 56152 Advanced Care Planning 30 Min ([id number])
--- NOTE | 2023-05-10 10:54 | Electrocardiogram Report ---
Test Reason : Blood Pressure : / mmHG Vent. Rate : 069 BPM Atrial Rate : 069 BPM P-R Int : 150 ms QRS Dur : 084 ms QT Int : 414 ms P-R-T Axes : 073 014 054 degrees QTc Int : 443 ms Normal sinus rhythm Normal ECG When compared with ECG of 29-APR-2023 15:54, Vent. rate has decreased BY 36 BPM Confirmed by Bronson Lozada ([id number]) on 05/10/2023 10:54:03 AM Referred By: Akil Ordoñez Confirmed By:Ángel Lozada
[2023-05-10] MEDS ORDERED: ATROPINE SULFATE 1% OP SOLN 5 ML BTL SL PRN (12:53)
[2023-05-10] MEDS: MoRPHine SULFATE 2 MG/ML CARP IV STA (13:10)
--- NOTE | 2023-05-10 13:51 | Urology Progress Note ---
Date of Service May 10, 2023 Assessment & Plan (1) Bladder neoplasm: (2) Bilateral ureteral obstruction: (3) Acute kidney injury: Plan S/p cystoscopy, transurethral resection of bladder tumor, unsuccessful attempted stent placement on 05/08/2023 The obstruction is most likely due to the large bladder tumor that was present on the posterior wall of the bladder Despite resection of as much of the tumor as possible the UOs were not identified Unable to place bilateral ureteral stents on 05/08. Creatinine elevated again today up to 4.57. The tentative plan is for transfer for nephrostomy tubes as this would hopefully help relieve any obstructive portion of the GYPSY. Palliative care consult pending. López currently draining pink urine on slow CBI. Continue to monitor. Urology will follow along. Admission and Anticipated Discharge Date Admission Date: April 30, 2023 Subjective S/p cystoscopy, transurethral resection of bladder tumor, unsuccessful attempted stent placement on 05/08/2023 Patient denies any significant pain at this time Remains on slow CBI- urine is light pink No fevers Review of Systems Constitutional: as per Subjective / HPI Genitourinary: + as per Subjective / HPI Physical Exam Constitutional: no acute distress Respiratory: no respiratory distress and no labored breathing Gastrointestinal (Abdomen): Percussion/Palpation: abdomen soft; abdomen nontender Neurologic: awake Genitourinary: López draining light pink urine with CBI on slow Results & Data Vital Signs (Past 12 Hours) Vital Signs Temp Pulse Pulse Resp BP BP Pulse Ox 05/10/23 09:29 95 H 153/74 H 98 05/10/23 08:15 05/10/23 07:55 36.6 C 88 16 144/74 H 98 05/10/23 04:35 81 20 155/74 H 96 O2 Del Method O2 Flow Rate 05/10/23 09:29 Room Air, Oxymask 1 05/10/23 08:15 Nasal Cannula 1 05/10/23 07:55 Nasal Cannula 1 05/10/23 04:35 Nasal Cannula 1 PG Care Time/CCT Total # of Minutes Spent Total Time Spent with Patient: Total time spent is greater than 50% in coordination of care (as documented) at patient's floor/unit and/or counseling patient: Coding Level of Care Code 12136 SUB INP/OBS CARE 2MIN Diagnoses Bladder neoplasm D49.4 Bilateral ureteral obstruction N13.5 Acute kidney injury N17.9
[2023-05-10] MEDS: HYDROmorphone INJ 0.5 MG/0.5 ML SYR IV PRN (15:21)
[2023-05-10] MEDS: LORazepam 0.5 MG TAB PO PRN (17:06)
[2023-05-11] MEDS: LORazepam 0.5 MG in SYRINGE 0.25 ML IV PRN (07:06)
--- NOTE | 2023-05-11 15:45 | Urology Progress Note ---
Date of Service May 11, 2023 Assessment & Plan (1) Bladder neoplasm: (2) Bilateral ureteral obstruction: (3) Acute kidney injury: Plan S/p cystoscopy, transurethral resection of bladder tumor, unsuccessful attempted stent placement on 05/08/2023 The obstruction is most likely due to the large bladder tumor that was present on the posterior wall of the bladder Despite resection of as much of the tumor as possible the UOs were not identified Unable to place bilateral ureteral stents on 05/08. Creatinine remained elevated and tentative plan was for transfer for nephrostomy tubes. Palliative care consulted yesterday. Patient transitioned to comfort measures López catheter and CBI per patient/family wishes. Urology will sign-off. Please call with any further questions or concerns. Admission and Anticipated Discharge Date Admission Date: April 30, 2023 Results & Data Vital Signs (Past 12 Hours) Vital Signs Pulse Resp BP Pulse Ox O2 Del Method O2 Flow Rate 05/11/23 14:27 94 H 16 155/69 H 99 Nasal Cannula 3 05/11/23 07:51 Room Air PG Care Time/CCT Total # of Minutes Spent Total Time Spent with Patient: Total time spent is greater than 50% in coordination of care (as documented) at patient's floor/unit and/or counseling patient: Coding Level of Care Code None Diagnoses Bladder neoplasm D49.4 Bilateral ureteral obstruction N13.5 Acute kidney injury N17.9
[2023-05-11] MEDS: fentaNYL 12 MCG/HR TDSY TD SCH (16:33)
[2023-05-11] MEDS: CHECK fentaNYL PATCH PLACEMENT SCH (16:34)
--- NOTE | 2023-05-11 19:21 | Hospitalist Progress Note ---
Date of Service May 11, 2023 Assessment & Plan (1) Comfort measures only status: Plan: Mr. Obrien was admitted with GYPSY and found to have bilateral hydronephrosis and hydroureter thought related to bladder outlet obstruction. Urologist consulted, rucker catheter was placed, initially GYPSY did improve somewhat with IV fluids and bladder drainage. He had difficulty with severe obstipation which eventually resolved. He then developed worsening GYPSY and underwent cystoscopy. He was found to have large bladder tumor completely obstructing his ureters, unable to be stented, and which would require bilateral percutaneous nephrostomies to address. In light of worsening GYPSY, large left-sided pleural effusion with development of acute hypoxic respiratory failure, large bladder tumor likely to be bladder cancer (and potentially high-grade), failure to thrive, advanced dementia, need for percutaneous nephrostomy tubes (which would require transfer), and need for thoracentesis, his family opted for comfort measures 05/10. Palliative care consulted. -last 24h has required 1.5 mg IV hydromorphone for comfort, is not taking po consistently, is very uncomfortable when IV doses wear off -equivalent dosing is 15 mcg by fentanyl patch so ordered 12 mcg patch -updated and granddaughter at bedside 05/11 -tentatively planning [facility] for discharge (2) GYPSY (acute kidney injury): Plan: Cr on admission 2.8 Mostly due to ureteral obstruction b/l from large bladder tumor ATN may have played a role as well see above (3) Pleural effusion: Plan: large, left (4) Acute hypoxic respiratory failure: Plan: 2nd to volume overload, large L pleural effusion, etc Cont NC O2 and narcotics for comfort (5) Bilateral ureteral obstruction: Plan: as seen on cystoscopy 05/08/[address] Nichols the obstruction is due to the large bladder tumor that was present on the posterior wall of the bladder despite resection of as much of the tumor as possible the UOs were not identified due to this scenario and his persistent/worsening GYPSY would have needed b/l percutaneous nephrostomy tubes transfer to [facility] was arranged, but ultimately transitioned to comfort care (6) Bladder neoplasm: Plan: large bladder tumor seen on cystoscopy 05/08/23 causing b/l ureteral obstruction s/p resection of the tumor highly concerning for bladder cancer - possibly high-grade continue rucker irrigation PRN to prevent clotting. No hematuria today. 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 stop all Rx (12) Bullous pemphigoid: (13) PAD (peripheral artery disease): (14) Memory loss: (15) HTN (hypertension): Plan: stop all meds Admission and Anticipated Discharge Date Admission Date: April 30, 2023 Subjective resting/sleeping when I rounded, and granddaughter at bedside report he gets very uncomfortable when IV hydromorphone wears off though current dose is effective for comfort Physical Exam Physical Exam: PHYSICAL EXAMINATION Last 24h vital signs reviewed, see documentation in flowsheet General: sleeping or sedated, did not rouse to exam HEENT: dry mucus membranes Lungs: Clear to auscultation anteriorly, nonlabored Heart: Regular rate and rhythm, no murmurs. No JVD Abdomen: Soft, nondistended Extremities: Warm, dry, well-perfused. No extremity edema. : yellow urine with sediment in rucker Neuro: sleeping or sedated, did not rouse to exam Psych: unable to assess Results & Data Results & Data Vital Signs (Past 12 Hours) Vital Signs Pulse Resp BP Pulse Ox O2 Del Method O2 Flow Rate 05/11/23 14:27 94 H 16 155/69 H 99 Nasal Cannula 3 05/11/23 07:51 Room Air PG Care Time/CCT Total # of Minutes Spent Total Time Spent with Patient: Total time spent is greater than 50% in coordination of care (as documented) at patient's floor/unit and/or counseling patient: Coding Level of Care Code 76705 SUB INP/OBS CARE 2/35MIN Diagnoses Comfort measures only status Z51.5 GYPSY (acute kidney injury) N17.9 Pleural effusion J90 Acute hypoxic respiratory failure J96.01 Bilateral ureteral obstruction N13.5 Bladder neoplasm D49.4 Constipation by delayed colonic transit K59.01 Bilateral hydronephrosis N13.30 BPH loc w urin obs/LUTS N40.1 Hematuria R31.9 Myositis of both thighs M60.9 Bullous pemphigoid L12.0 PAD (peripheral artery disease) I73.9 Memory loss R41.3 HTN (hypertension) I10
[2023-05-12] MEDS: HYDROmorphone/NSS 100 MG/100 ML BAG IV SCH (16:35)
--- NOTE | 2023-05-12 17:20 | Hospitalist Progress Note ---
Date of Service May 12, 2023 Assessment & Plan (1) Comfort measures only status: Plan: Mr. Obrien was admitted with GYPSY and found to have bilateral hydronephrosis and hydroureter thought related to bladder outlet obstruction. Urologist consulted, rucker catheter was placed, initially GYPSY did improve somewhat with IV fluids and bladder drainage. He had difficulty with severe obstipation which eventually resolved. He then developed worsening GYPSY and underwent cystoscopy. He was found to have large bladder tumor completely obstructing his ureters, unable to be stented, and which would require bilateral percutaneous nephrostomies to address. In light of worsening GYPSY, large left-sided pleural effusion with development of acute hypoxic respiratory failure, large bladder tumor likely to be bladder cancer (and potentially high-grade), failure to thrive, advanced dementia, need for percutaneous nephrostomy tubes (which would require transfer), and need for thoracentesis, his family opted for comfort measures 05/10. Palliative care consulted. is very uncomfortable when IV push doses wear off, addition of fentanyl patch didn't seem to help: -changed to hydromorphone IV drip - to help -updated and granddaughter at bedside 05/11, 05/12 (2) GYPSY (acute kidney injury): Plan: Cr on admission 2.8 Mostly due to ureteral obstruction b/l from large bladder tumor ATN may have played a role as well see above (3) Pleural effusion: Plan: large, left (4) Acute hypoxic respiratory failure: Plan: 2nd to volume overload, large L pleural effusion, etc Cont NC O2 and narcotics for comfort (5) Bilateral ureteral obstruction: Plan: as seen on cystoscopy 05/08/[address] Nichols the obstruction is due to the large bladder tumor that was present on the posterior wall of the bladder despite resection of as much of the tumor as possible the UOs were not identified due to this scenario and his persistent/worsening GYPSY would have needed b/l percutaneous nephrostomy tubes transfer to [facility] was arranged, but ultimately transitioned to comfort care (6) Bladder neoplasm: Plan: large bladder tumor seen on cystoscopy 05/08/23 causing b/l ureteral obstruction s/p resection of the tumor highly concerning for bladder cancer - possibly high-grade continue rucker irrigation PRN to prevent clotting. No hematuria today. 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 stop all Rx (12) Bullous pemphigoid: (13) PAD (peripheral artery disease): (14) Memory loss: (15) HTN (hypertension): Plan: stop all meds Admission and Anticipated Discharge Date Admission Date: April 30, 2023 Subjective not awake when I rounded but discussed with nursing and family at bedside and he's been frequently crying out / moaning in apparent pain because hydromorphone IV doses wearing off Physical Exam Physical Exam: PHYSICAL EXAMINATION Last 24h vital signs reviewed, see documentation in flowsheet exam unchanged 05/12: General: sleeping or sedated, did not rouse to exam HEENT: dry mucus membranes Lungs: Clear to auscultation anteriorly, nonlabored Heart: Regular rate and rhythm, no murmurs. No JVD Abdomen: Soft, nondistended Extremities: Warm, dry, well-perfused. No extremity edema. : yellow urine with sediment in rucker, no clots Neuro: sleeping or sedated, did not rouse to exam Psych: unable to assess Results & Data Results & Data Vital Signs (Past 12 Hours) Vital Signs O2 Del Method O2 Flow Rate 05/12/23 08:00 Nasal Cannula 3 PG Care Time/CCT Total # of Minutes Spent Total Time Spent with Patient: Total time spent is greater than 50% in coordination of care (as documented) at patient's floor/unit and/or counseling patient: Coding Level of Care Code 30039 SUB INP/OBS CARE 235MIN Diagnoses Comfort measures only status Z51.5 GYPSY (acute kidney injury) N17.9 Pleural effusion J90 Acute hypoxic respiratory failure J96.01 Bilateral ureteral obstruction N13.5 Bladder neoplasm D49.4 Constipation by delayed colonic transit K59.01 Bilateral hydronephrosis N13.30 BPH loc w urin obs/LUTS N40.1 Hematuria R31.9 Myositis of both thighs M60.9 Bullous pemphigoid L12.0 PAD (peripheral artery disease) I73.9 Memory loss R41.3 HTN (hypertension) I10
[2023-05-13] MEDS: HYDROmorphone BOLUS from BAG IV PRN (09:32)
--- NOTE | 2023-05-13 17:14 | Hospitalist Progress Note ---
Date of Service May 13, 2023 Assessment & Plan (1) Comfort measures only status: Plan: Mr. Obrien was admitted with GYPSY and found to have bilateral hydronephrosis and hydroureter thought related to bladder outlet obstruction. Urologist consulted, rucker catheter was placed, initially GYPSY did improve somewhat with IV fluids and bladder drainage. He had difficulty with severe obstipation which eventually resolved. He then developed worsening GYPSY and underwent cystoscopy. He was found to have large bladder tumor completely obstructing his ureters, unable to be stented, and which would require bilateral percutaneous nephrostomies to address. In light of worsening GYPSY, large left-sided pleural effusion with development of acute hypoxic respiratory failure, large bladder tumor likely to be bladder cancer (and potentially high-grade), failure to thrive, advanced dementia, need for percutaneous nephrostomy tubes (which would require transfer), and need for thoracentesis, his family opted for comfort measures 05/10. Palliative care consulted. is very uncomfortable when IV push doses wear off, addition of fentanyl patch didn't seem to help: -changed to hydromorphone IV drip evening of 05/12, has been more comfortable with this change -updated and granddaughter at bedside 05/11, 05/12, 05/13 (2) GYPSY (acute kidney injury): Plan: Cr on admission 2.8 Mostly due to ureteral obstruction b/l from large bladder tumor ATN may have played a role as well see above (3) Pleural effusion: Plan: large, left (4) Acute hypoxic respiratory failure: Plan: 2nd to volume overload, large L pleural effusion, etc Cont NC O2 and narcotics for comfort (5) Bilateral ureteral obstruction: Plan: as seen on cystoscopy 05/08/[address] Nichols the obstruction is due to the large bladder tumor that was present on the posterior wall of the bladder despite resection of as much of the tumor as possible the UOs were not identified due to this scenario and his persistent/worsening GYPSY would have needed b/l percutaneous nephrostomy tubes transfer to [facility] was arranged, but ultimately transitioned to comfort care (6) Bladder neoplasm: Plan: large bladder tumor seen on cystoscopy 05/08/23 causing b/l ureteral obstruction s/p resection of the tumor pathology reviewed - confirms high grade urothelial carcinoma - I discussed this with his family 05/13 continue rucker irrigation PRN to prevent clotting. No hematuria today. 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 He has not been awake or alert, had some increased distress today resolved after IVP dose hydromorphone Physical Exam Physical Exam: PHYSICAL EXAMINATION Last 24h vital signs reviewed, see documentation in flowsheet exam unchanged 05/13: General: sleeping or sedated, did not rouse to exam, appears comfortable HEENT: dry mucus membranes Lungs: Clear to auscultation anteriorly, nonlabored Heart: Regular rate and rhythm, no murmurs. No JVD Abdomen: Soft, nondistended Extremities: Warm, dry, well-perfused. No extremity edema. : light yellow urine with sediment in rucker, no clots, CBI running Neuro: sleeping or sedated, did not rouse to exam Psych: unable to assess Results & Data Results & Data Vital Signs (Past 12 Hours) Vital Signs O2 Del Method O2 Flow Rate 05/13/23 09:15 Nasal Cannula 3 PG Care Time/CCT Total # of Minutes Spent Total Time Spent with Patient: Total time spent is greater than 50% in coordination of care (as documented) at patient's floor/unit and/or counseling patient: Coding Level of Care Code 68218 SUB INP/OBS CARE 35MIN Diagnoses Comfort measures only status Z51.5 GYPSY (acute kidney injury) N17.9 Pleural effusion J90 Acute hypoxic respiratory failure J96.01 Bilateral ureteral obstruction N13.5 Bladder neoplasm D49.4 Constipation by delayed colonic transit K59.01 Bilateral hydronephrosis N13.30 BPH loc w urin obs/LUTS N40.1 Hematuria R31.9 Myositis of both thighs M60.9 Bullous pemphigoid L12.0 PAD (peripheral artery disease) I73.9 Memory loss R41.3 HTN (hypertension) I10
--- NOTE | 2023-05-14 18:48 | Hospitalist Progress Note ---
Date of Service May 14, 2023 Assessment & Plan (1) Comfort measures only status: Plan: Mr. Obrien was admitted with GYPSY and found to have bilateral hydronephrosis and hydroureter thought related to bladder outlet obstruction. Urologist consulted, rucker catheter was placed, initially GYPSY did improve somewhat with IV fluids and bladder drainage. He had difficulty with severe obstipation which eventually resolved. He then developed worsening GYPSY and underwent cystoscopy. He was found to have large bladder tumor completely obstructing his ureters, unable to be stented, and which would require bilateral percutaneous nephrostomies to address. In light of worsening GYPSY, large left-sided pleural effusion with development of acute hypoxic respiratory failure, large bladder tumor likely to be bladder cancer (and potentially high-grade), failure to thrive, advanced dementia, need for percutaneous nephrostomy tubes (which would require transfer), and need for thoracentesis, his family opted for comfort measures 05/10. Palliative care consulted. is very uncomfortable when IV push doses wear off, addition of fentanyl patch didn't seem to help: -changed to hydromorphone IV drip evening of 05/12, has been more comfortable with this change -updated and granddaughter at bedside 05/11, 05/12, 05/13 -05/14 no changes, continue hydromorphone drip, family declined inpatient hospice referral, same plan of care (2) GYPSY (acute kidney injury): Plan: Cr on admission 2.8 Mostly due to ureteral obstruction b/l from large bladder tumor ATN may have played a role as well see above (3) Pleural effusion: Plan: large, left (4) Acute hypoxic respiratory failure: Plan: 2nd to volume overload, large L pleural effusion, etc Cont NC O2 and narcotics for comfort (5) Bilateral ureteral obstruction: Plan: as seen on cystoscopy 05/08/[address] Nichols the obstruction is due to the large bladder tumor that was present on the posterior wall of the bladder despite resection of as much of the tumor as possible the UOs were not identified due to this scenario and his persistent/worsening GYPSY would have needed b/l percutaneous nephrostomy tubes transfer to [facility] was arranged, but ultimately transitioned to comfort care (6) Bladder neoplasm: Plan: large bladder tumor seen on cystoscopy 05/08/23 causing b/l ureteral obstruction s/p resection of the tumor pathology reviewed - confirms high grade urothelial carcinoma - I discussed this with his family 05/13 continue rucker irrigation PRN to prevent clotting. No hematuria today. 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 No JVD Abdomen: Soft, nondistended Extremities: Warm, dry, well-perfused. No extremity edema. : light yellow urine with sediment in rucker, no clots, CBI running Neuro: poorly responsive, did not rouse to exam Psych: unable to assess Results & Data Results & Data Vital Signs (Past 12 Hours) Vital Signs Resp O2 Del Method 05/14/23 08:16 Nasal Cannula 05/14/23 08:15 24 PG Care Time/CCT Total # of Minutes Spent Total Time Spent with Patient: Total time spent is greater than 50% in coordination of care (as documented) at patient's floor/unit and/or counseling patient: Coding Level of Care Code 51818 SUB INP/OBS CARE 04/15MIN Diagnoses Comfort measures only status Z51.5 GYPSY (acute kidney injury) N17.9 Pleural effusion J90 Acute hypoxic respiratory failure J96.01 Bilateral ureteral obstruction N13.5 Bladder neoplasm D49.4 Constipation by delayed colonic transit K59.01 Bilateral hydronephrosis N13.30 BPH loc w urin obs/LUTS N40.1 Hematuria R31.9 Myositis of both thighs M60.9 Bullous pemphigoid L12.0 PAD (peripheral artery disease) I73.9 Memory loss R41.3 HTN (hypertension) I10
--- NOTE | 2023-05-15 17:14 | Hospitalist Progress Note ---
Date of Service May 15, 2023 Assessment & Plan (1) Comfort measures only status: Plan: Mr. Obrien was admitted with GYPSY and found to have bilateral hydronephrosis and hydroureter thought related to bladder outlet obstruction. Urologist consulted, rucker catheter was placed, initially GYPSY did improve somewhat with IV fluids and bladder drainage. He had difficulty with severe obstipation which eventually resolved. He then developed worsening GYPSY and underwent cystoscopy. He was found to have large bladder tumor completely obstructing his ureters, unable to be stented, and which would require bilateral percutaneous nephrostomies to address. In light of worsening GYPSY, large left-sided pleural effusion with development of acute hypoxic respiratory failure, large bladder tumor likely to be bladder cancer (and potentially high-grade), failure to thrive, advanced dementia, need for percutaneous nephrostomy tubes (which would require transfer), and need for thoracentesis, his family opted for comfort measures 05/10. Palliative care consulted. is very uncomfortable when IV push doses wear off, addition of fentanyl patch didn't seem to help: -changed to hydromorphone IV drip evening of 05/12, has been more comfortable with this change -updated at bedside 05/15 -05/15 no changes, continue hydromorphone drip, comfort measures (2) GYPSY (acute kidney injury): Plan: Cr on admission 2.8 Mostly due to ureteral obstruction b/l from large bladder tumor ATN may have played a role as well see above (3) Pleural effusion: Plan: large, left (4) Acute hypoxic respiratory failure: Plan: 2nd to volume overload, large L pleural effusion, etc Cont NC O2 and opioids for comfort (5) Bilateral ureteral obstruction: Plan: as seen on cystoscopy 05/08/[address] Nichols the obstruction is due to the large bladder tumor that was present on the posterior wall of the bladder despite resection of as much of the tumor as possible the UOs were not identified due to this scenario and his persistent/worsening GYPSY would have needed b/l percutaneous nephrostomy tubes transfer to [facility] was arranged, but ultimately transitioned to comfort care (6) Bladder neoplasm: Plan: large bladder tumor seen on cystoscopy 05/08/23 causing b/l ureteral obstruction s/p resection of the tumor pathology reviewed - confirms high grade urothelial carcinoma - I discussed this with his family 05/13 continue rucker irrigation PRN to prevent clotting. No hematuria today. 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 long period of restlessness this am. sleeping or sedated currently. not eating/drinking. Physical Exam Physical Exam: PHYSICAL EXAMINATION Last 24h vital signs reviewed, see documentation in flowsheet exam unchanged 05/15: General: did not rouse to exam, appears comfortable HEENT: dry mucus membranes Lungs: Clear to auscultation anteriorly, nonlabored Heart: Regular rate and rhythm, no murmurs. No JVD Abdomen: Soft, nondistended Extremities: Warm, dry, well-perfused. No extremity edema. : dark brown/cola colored urine with minimal sediment in rucker, no clots, CBI running Neuro: poorly responsive, did not rouse to exam Psych: unable to assess Results & Data Results & Data Vital Signs (Past 12 Hours) Vital Signs O2 Del Method O2 Flow Rate 05/15/23 07:40 Nasal Cannula 2 PG Care Time/CCT Total # of Minutes Spent Total Time Spent with Patient: Total time spent is greater than 50% in coordination of care (as documented) at patient's floor/unit and/or counseling patient: Coding Level of Care Code 36795 SUB INP/OBS CARE 04/15MIN Diagnoses Comfort measures only status Z51.5 GYPSY (acute kidney injury) N17.9 Pleural effusion J90 Acute hypoxic respiratory failure J96.01 Bilateral ureteral obstruction N13.5 Bladder neoplasm D49.4 Constipation by delayed colonic transit K59.01 Bilateral hydronephrosis N13.30 BPH loc w urin obs/LUTS N40.1 Hematuria R31.9 Myositis of both thighs M60.9 Bullous pemphigoid L12.0 PAD (peripheral artery disease) I73.9 Memory loss R41.3 HTN (hypertension) I10
[2023-05-16] MEDS: HYDROmorphone INJ 0.5 MG/0.5 ML SYR IV PRN (04:40)
--- NOTE | 2023-05-16 15:34 | Hospitalist Progress Note ---
Date of Service May 16, 2023 Assessment & Plan (1) Comfort measures only status: Plan: Mr. Obrien was admitted with GYPSY and found to have bilateral hydronephrosis and hydroureter thought related to bladder outlet obstruction. Urologist consulted, rucker catheter was placed, initially GYPSY did improve somewhat with IV fluids and bladder drainage. He had difficulty with severe obstipation which eventually resolved. He then developed worsening GYPSY and underwent cystoscopy. He was found to have large bladder tumor completely obstructing his ureters, unable to be stented, and which would require bilateral percutaneous nephrostomies to address. In light of worsening GYPSY, large left-sided pleural effusion with development of acute hypoxic respiratory failure, large bladder tumor likely to be bladder cancer (and potentially high-grade), failure to thrive, advanced dementia, need for percutaneous nephrostomy tubes (which would require transfer), and need for thoracentesis, his family opted for comfort measures 05/10. Palliative care consulted. is very uncomfortable when IV push doses wear off, addition of fentanyl patch didn't seem to help: -changed to hydromorphone IV drip evening of 05/12, has been more comfortable with this change -updated at bedside 05/16 -05/16 no changes to current management, continue hydromorphone drip remains at 0.4/h with prn boluses, comfort measures (2) GYPSY (acute kidney injury): Plan: Cr on admission 2.8 Mostly due to ureteral obstruction b/l from large bladder tumor ATN may have played a role as well see above (3) Pleural effusion: Plan: large, left (4) Acute hypoxic respiratory failure: Plan: 2nd to volume overload, large L pleural effusion, etc Cont NC O2 and opioids for comfort (5) Bilateral ureteral obstruction: Plan: as seen on cystoscopy 05/08/[address] Nichols the obstruction is due to the large bladder tumor that was present on the posterior wall of the bladder despite resection of as much of the tumor as possible the UOs were not identified due to this scenario and his persistent/worsening GYPSY would have needed b/l percutaneous nephrostomy tubes transfer to [facility] was arranged, but ultimately transitioned to comfort care (6) Bladder neoplasm: Plan: large bladder tumor seen on cystoscopy 05/08/23 causing b/l ureteral obstruction s/p resection of the tumor pathology reviewed - confirms high grade urothelial carcinoma - I discussed this with his family 05/13 continue rucker irrigation to prevent clotting. No hematuria today. 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 at bedside reports breathing pattern has changed. Occasionally has been awake last 48h. No further restless episodes since yesterday am. Physical Exam Physical Exam: PHYSICAL EXAMINATION Last 24h vital signs reviewed, see documentation in flowsheet exam unchanged 05/16: General: did not rouse to exam, appears comfortable HEENT: dry mucus membranes Lungs: Clear to auscultation anteriorly, nonlabored, abdominal breathing pattern but regular and deep Heart: Regular rate and rhythm, no murmurs. No JVD Abdomen: Soft, nondistended Extremities: Warm, dry, well-perfused. No extremity edema. : dark brown/cola colored urine with minimal sediment in rucker, no clots, CBI running Neuro: poorly responsive, did not rouse to exam Psych: unable to assess Results & Data Results & Data Vital Signs (Past 12 Hours) Vital Signs O2 Del Method O2 Flow Rate 05/16/23 07:20 Nasal Cannula 2 PG Care Time/CCT Total # of Minutes Spent Total Time Spent with Patient: Total time spent is greater than 50% in coordination of care (as documented) at patient's floor/unit and/or counseling patient: Coding Level of Care Code 35012 SUB INP/OBS CARE 04/15MIN Diagnoses Comfort measures only status Z51.5 GYPSY (acute kidney injury) N17.9 Pleural effusion J90 Acute hypoxic respiratory failure J96.01 Bilateral ureteral obstruction N13.5 Bladder neoplasm D49.4 Constipation by delayed colonic transit K59.01 Bilateral hydronephrosis N13.30 BPH loc w urin obs/LUTS N40.1 Hematuria R31.9 Myositis of both thighs M60.9 Bullous pemphigoid L12.0 PAD (peripheral artery disease) I73.9 Memory loss R41.3 HTN (hypertension) I10
[2023-05-16] MEDS ORDERED: HYDROmorphone BOLUS from BAG IV PRN (16:20)
[2023-05-16] MEDS ORDERED: HYDROmorphone/NSS 100 MG/100 ML BAG IV SCH (16:30)
[2023-05-16] MEDS: GLYCOPYRROLATE 0.2 MG/ML VIAL IV PRN (20:30)
[2023-05-16] MEDS: HYOSCYAMINE SULFATE 0.125 MG TAB SL PRN (21:49)
--- NOTE | 2023-05-16 23:15 | Death Pronouncement Note ---
Date of Service May 16, 2023 Pronouncement Note Admission Date Admission Date: April 30, 2023 Contributing Factors (1) Comfort measures only status: (2) GYPSY (acute kidney injury): (3) Pleural effusion: (4) Acute hypoxic respiratory failure: (5) Bilateral ureteral obstruction: (6) Bladder neoplasm: (7) Constipation by delayed colonic transit: (8) Bilateral hydronephrosis: (9) BPH loc w urin obs/LUTS: (10) Hematuria: (11) Myositis of both thighs: (12) Bullous pemphigoid: (13) PAD (peripheral artery disease): (14) Memory loss: (15) HTN (hypertension): Summary Additional details: I was called to pronounce the of Mahad Obrien ( 1935) by Yuni García on 05/16/2023. Upon entering the room, patient was found to be in a terminal state. They were unresponsive to, and did not withdrawal from, verbal or tactile stimuli. They were unresponsive to corneal, pupillary, and oculocephalic reflexes. On cardiopulmonary exam, they were found to be without detectable carotid pulses, and without spontaneous heart tones or respirations. Time of was pronounced by me on 05/16/2023 at 23:11. Attending physician was notified was notified. was present in the room. Signed: Blanca Perez DO Additional Data Attending physician: Morelia Carey MD
--- NOTE | 2023-05-17 07:21 | Discharge Summary ---
Date of Service May 16, 2023 Admission HPI Per Admitting Provider The patient is a 88-year-old male with a past medical history including bullous pemphigoid, hyperlipidemia, BPH, COPD, thigh myositis, pyelonephritis, and popliteal artery aneurysm. The patient presents to the emergency department after having symptoms of abdominal pain and hematuria for the past month, worsening over the past week, and advised to come to the ED by his outpatient physician. Symptoms also include generalized weakness, fatigue and worsening memory issues Principal Diagnosis acute kidney injury due to bilateral ureteral obstruction from high grade urothelial carcinoma Discharge Exam see progress note 05/16/23 Discharge Data Allergies Allergy/AdvReac Type Severity Reaction Status Date / Time pollen extracts Allergy Mild Congestion Verified 04/29/23 20:00 Consultations 04/30/23 00:24 ED Decision to Admit Stat 04/30/23 02:51 Consult Urology Routine 05/06/23 10:37 Consult Nephrology Routine 05/10/23 04:04 Consult Pulmonology Routine 05/10/23 07:30 Consult Palliative Care Routine Procedures Performed Operation Date: 05/08/23 07:30 Actual Procedures p Cystoscopy, Transuretheral Resection of Bladder Tumor(Not Applicable) - Zheng Nichols MD Ordered Studies 04/29/23 18:22 CT abd pelvis wo con Stat 05/06/23 07:53 US renal/blad retro comp Routine 05/10/23 00:21 CT for pulmonary embolism PE [CT angio chest PE protocol] Stat Hospital Course (1) Comfort measures only status: Mr. Obrien was admitted with GYPSY and found to have bilateral hydronephrosis and hydroureter thought related to bladder outlet obstruction. Urologist consulted, rucker catheter was placed, initially GYPSY did improve somewhat with IV fluids and bladder drainage. He had difficulty with severe obstipation which eventually resolved. He then developed worsening GYPSY and underwent cystoscopy. He was found to have large bladder tumor completely obstructing his ureters, unable to be stented, and which would require bilateral percutaneous nephrostomies to address. In light of worsening GYPSY, large left-sided pleural effusion with development of acute hypoxic respiratory failure, large bladder tumor likely to be bladder cancer (and potentially high-grade), failure to thrive, advanced dementia, need for percutaneous nephrostomy tubes (which would require transfer), and need for thoracentesis, his family opted for comfort measures 05/10. Palliative care consulted. Comfort measures provided, required hydromorphone drip for symptom control, Mr. Obrien evening of 05/16/23. (2) GYPSY (acute kidney injury): Cr on admission 2.8 Mostly due to ureteral obstruction b/l from large bladder tumor ATN may have played a role as well see above (3) Pleural effusion: large, left (4) Acute hypoxic respiratory failure: 2nd to volume overload, large L pleural effusion, etc Pulmonary consulted and thoracentesis was planned, but ultimately transitioned to comfort care. (5) Bilateral ureteral obstruction: as seen on cystoscopy 05/08/[address] Nichols the obstruction is due to the large bladder tumor that was present on the poste rior wall of the bladder despite resection of as much of the tumor as possible the UOs were not identified due to this scenario and his persistent/worsening GYPSY would have needed b/l percutaneous nephrostomy tubes transfer to [facility] was arranged, but ultimately transitioned to comfort care (6) Bladder neoplasm: large bladder tumor seen on cystoscopy 05/08/23 causing bilateral ureteral obstruction s/p resection of the tumor pathology reviewed - confirms high grade urothelial carcinoma - I discussed this with his family 05/13 continued rucker irrigation to prevent clotting with blood/debris (7) Constipation by delayed colonic transit: (8) Bilateral hydronephrosis: as above (9) BPH loc w urin obs/LUTS: (10) Hematuria: (11) Myositis of both thighs: Bullous pemphigoid/myositis of thighs- previously on chronic prednisone (12) Bullous pemphigoid: (13) PAD (peripheral artery disease): (14) Memory loss: (15) HTN (hypertension): Total Time Total Time Spent Total Time Spent (In Minutes): 25 minutes Discharge Plan Discharge Items Patient Disposition: Other Date/Time: 05/16/23 23:11 Coding Level of Care Code 88350 IN/OBS DISCH 30 MIN/LESS Diagnoses Comfort measures only status Z51.5 GYPSY (acute kidney injury) N17.9 Pleural effusion J90 Acute hypoxic respiratory failure J96.01 Bilateral ureteral obstruction N13.5 Bladder neoplasm D49.4 Constipation by delayed colonic transit K59.01 Bilateral hydronephrosis N13.30 BPH loc w urin obs/LUTS N40.1 Hematuria R31.9 Myositis of both thighs M60.9 Bullous pemphigoid L12.0 PAD (peripheral artery disease) I73.9 Memory loss R41.3 HTN (hypertension) I10
== END 2023-05-16 23:58 | disposition expired | DRG 668 ==
LOC: ED 15:24 → 3N 04-30 01:14 → SUATTDRO 04-30 01:14 → 3N 04-30 02:09